=== PATIENT | female | born 1990 | race Caucasian/White ===

== ENCOUNTER 2017-10-08 16:43 | Emergency (ER) | payer SELFPAY ==
[2017-10-08 16:46] VITALS: BP 157/91; PULSE 98; RESP 20; TEMP 36.4; O2SAT 95; BMI 34.1
--- NOTE | 2017-10-08 17:53 | ED.DCSUM_ITS ---
- ER Visit Summary Date of Service: 10/08/17 Chief Complaint: Dental pain History of Present Illness: The patient is a 27 F who had her upper teeth extracted today at [facility]. Patient states there were at least 8 teeth that were pulled. Sutures were placed and then an upper denture plate was placed. Patient was advised not to remove the denture plate. She continues to have mild bleeding and states her pain is not controlled with the Motrin that she was given. Physical Examination: Vital signs are significant for mild hypertension. Patient is in no acute distress but does appear uncomfortable. Head neck examination reveals an upper denture plate to be in place. She has bloody mucus in her mouth. She is a strong voice and is tolerating secretions well. Uvula is midline. Heart is regular rate and rhythm. Lung sounds are clear. Test Results: [] Emergency Department Course and Treatment: I did do an oars report. She has had no recent narcotics. She will be given [place] here and a prescription for the same. Treatment Plan: [] Disposition: Discharge Impression: Odontalgia status post dental extraction This note was generated with [employer] dictation software. It may contain incorrect words, spelling, and punctuation that were not noted in review of the chart prior to signing ED Disposition - Plan for ED Patient: Disposition: Home or Assisted Living Chief Complaint: Dental Instructions: After a Tooth Extraction: Caring for Your Mouth Prescriptions: Hydrocodone Bitart/Apap 5-325 [[place] 5/325] 1 - 2 tablet PO Q6H PRN PRN 4 Days # 20 tablet PRN Reason: Pain Referrals: [facility] Ajith,Aurelia Sierra [Primary Care Provider] -
--- NOTE | 2017-10-08 17:53 | ED.DEP ---
ED Disposition - Plan for ED Patient: Disposition: Home or Assisted Living Chief Complaint: Dental Instructions: After a Tooth Extraction: Caring for Your Mouth Prescriptions: Hydrocodone Bitart/Apap 5-325 [[place] 5/325] 1 - 2 tablet PO Q6H PRN PRN 4 Days #20 tablet PRN Reason: Pain Referrals: [facility] Ajith,Aurelia Sierra [Primary Care Provider] -
--- NOTE | 2017-10-08 17:56 | DCINST.ED_ITS ---
ED Disposition - Plan for ED Patient: Disposition: Home or Assisted Living Chief Complaint: Dental Instructions: After a Tooth Extraction: Caring for Your Mouth Prescriptions: Hydrocodone Bitart/Apap 5-325 [[place] 5/325] 1 - 2 tablet PO Q6H PRN PRN 4 Days # 20 tablet PRN Reason: Pain Referrals: [facility] Ajith,Aurelia Sierra [Primary Care Provider] -
[2017-10-08] MEDS: HYDROcodone Bitartrate/Apap 5/325 Tablet PO (17:59)
[2017-10-08 18:43] VITALS: BP 132/71; PULSE 81; RESP 16; O2SAT 97
== END 2017-10-08 18:44 | disposition home or self-care (01) ==
LOC: ED 18:06
PROVIDERS: Emergency Provider Emergency Medicine
DX: K08.89 Other specified disorders of teeth and supporting structures (principal); Z98.818 Other dental procedure status; I10 Essential (primary) hypertension; F32.9 Major depressive disorder, single episode, unspecified; F41.9 Anxiety disorder, unspecified; Z72.0 Tobacco use; Z79.899 Other long term (current) drug therapy
CPT/HCPCS: 99283

== ENCOUNTER 2018-04-08 16:40 | Emergency (ER) | payer SELFPAY ==
[2018-04-08 16:40] VITALS: BP 146/110; PULSE 79; RESP 16; TEMP 36.6; O2SAT 98; BMI 31.6
--- NOTE | 2018-04-08 17:07 | ED.VISSUMM ---
- ER Visit Summary Date of Service: 04/08/18 Chief Complaint: [Back pain] History of Present Illness: The patient is a 27 F [presents the emergency department complaint of back pain that she has had for the last 3-4 days. States that she and her boyfriend like to play wrestle and she thinks she may have possibly injured it that way otherwise denies any direct trauma or falls. Patient states she just kind of woke up one morning with the discomfort. She has tried ibuprofen and using heat to the area without much relief. Patient states the pain is very positional and hurts with certain movements. She denies any pain radiating into her legs. At times the pain will radiate to the anterior part of her chest. She denies any shortness of breath. She denies recent travel or surgery. Patient denies any fevers or recent illness. Patient is a smoker so she always has a chronic cough in the morning but nothing out of the ordinary.] Physical Examination: [HEENT-PERRLA, EOMI. Cranial nerves II through XII grossly intact. TMs clear. Mucous membranes moist. No adenopathy. Cardiovascular-regular rate and rhythm without murmur or ectopy Lungs-clear to auscultation, chest wall stable without crepitus or subcu emphysema Abdomen-normoactive bowel sounds, soft, nontender, no rebound or rigidity, no peritoneal signs. Back exam-patient has no tenderness over the C-spine or LS-spine. Patient has no significant tenderness over the thoracic spine. Patient does have tenderness over the left thoracic paraspinal musculature that seems to reproduce her pain. Patient has negative straight leg raises. Deep tendon reflexes are plus 2 out of 4 bilaterally at the patella and Achilles. Patient has normal L5 extension. Patient has normal sensation to light touch. Extremities-intact ?4, normal range of motion, normal pulses, atraumatic] Test Results: None indicated] Emergency Department Course and Treatment: [Patient was medicated with Toradol and Norflex] Treatment Plan: [Patient will be given a prescription for Naprosyn, [place], and Flexeril] Disposition: [Discharged home in stable condition. Patient advised to follow-up with primary care physician in 5-7 days.] Impression: [Thoracic strain] This note was generated with [employer] software. It may contain incorrect words, spelling, and punctuation that were not noted in review of the chart prior to signing ED Disposition - Plan for ED Patient: Chief Complaint: Back Referrals: Aurelia Han [Primary Care Provider] -
--- NOTE | 2018-04-08 17:09 | ED.DEP ---
ED Disposition - Plan for ED Patient: Chief Complaint: Back Instructions: ED Sprain Thoracic Spine Prescriptions: Hydrocodone/Acetaminophen [[place] 5-325 Tablet] 1 ea PO 4X/DAY PRN PRN 5 Days #20 tab PRN Reason: Pain Naproxen [Naprosyn] 500 mg PO BID PRN #20 tab Cyclobenzaprine [Flexeril] 10 mg PO TID PRN #20 tab PRN Reason: Muscle Spasm Referrals: Aurelia Han [Primary Care Provider] - 5-7 Days
[2018-04-08] MEDS: Ketorolac 60 MG/2 ML Vial IM (17:13)
[2018-04-08] MEDS: Orphenadrine 60 MG/2 ML Ampul IM (17:13)
== END 2018-04-08 17:43 | disposition home or self-care (01) ==
PROVIDERS: Emergency Provider Emergency Medicine
DX: S29.012A Strain of muscle and tendon of back wall of thorax, initial encounter (principal); X58.XXXA Exposure to other specified factors, initial encounter; Y93.83 Activity, rough housing and horseplay; Y92.9 Unspecified place or not applicable; Y99.9 Unspecified external cause status; R05 Cough; F32.9 Major depressive disorder, single episode, unspecified; F17.200 Nicotine dependence, unspecified, uncomplicated; Z79.899 Other long term (current) drug therapy
CPT/HCPCS: 96372; 99282

== ENCOUNTER 2018-10-11 13:43 | Emergency (ER) | payer SELFPAY ==
[2018-10-11 13:44] VITALS: BP 125/94; PULSE 104; RESP 14; TEMP 36.7; O2SAT 97; BMI 31.8
--- NOTE | 2018-10-11 15:15 | CT_ITS ---
STUDY: CT ABDOMEN AND PELVIS WITHOUT CONTRAST REASON FOR EXAM: Female, 28 years old. Left flank pain RADIATION DOSAGE (If Supplied By Facility): CTDIvol = ( 10.45 ) mGy, DLP = ( 527.52 ) mGycm TECHNIQUE: Transaxial images were obtained from the dome of the diaphragm to the symphysis pubis without oral contrast, and without intravenous contrast. Sagittal and coronal images were reconstructed. Individualized dose optimization techniques were used for this CT. COMPARISON: None. FINDINGS: Evaluation of the abdominal viscera is limited in the absence of intravenous contrast. The visualized lung bases are clear. The visualized portions of the heart and pericardium are within normal limits. There are no calcified gallstones present. The liver demonstrates an unremarkable unenhanced appearance. The spleen is normal in size. The pancreas demonstrates an unremarkable unenhanced appearance. The adrenal glands are within normal limits. There is a 4 mm stone in the left proximal ureter with mild left hydronephrosis. There is a subcentimeter nonobstructing stone in the lower pole of the left kidney. There are no right-sided stones. There is no right-sided hydronephrosis. Normal visualized stomach. There is no bowel obstruction or inflammation. The appendix is visualized and appears normal. The aorta is normal in caliber. There is no abdominal or pelvic free air, free fluid, fluid collection or lymphadenopathy. There are no destructive osseous lesions. CT/Abdomen/Pelvis without Cont IMPRESSION: 4 mm stone in the left proximal ureter with mild left hydronephrosis. Electronically Signed: Rickey Blum, at 16:53 EST Tel , Service support ,
--- NOTE | 2018-10-11 15:16 | ED.VIS.GEN ---
History of Present Illness Chief Complaint: Back Informant: Patient Onset: Today Context: Sudden Onset - just after finished urinating this AM, about 6 hrs prior to eval Timing: Continuous Quality: non-colicky aching Location: left low back, radiating into left flank and groin Current Severity: - - 7/10 Maximum Severity: - - 7/10 Worsened by: moving around, but can't find comfortable position Relieved by: nothing Associated Symptoms: n/v. no urinary sx today. has never had this before. Narrative: No fevers or diarrhea. Incidentally patient states she has been having migraines more often than the past 6 months, especially for the past 5 days. Headache has been off and on and is associated with nausea/vomiting, but no photophobia. Nausea improves when the headaches resolve. Headaches are bifrontal. It is not present right now, but she is still nauseated. Has no PCP and has never seen a doctor outside of the ER for these headaches that she is calling migraines, because that is the only severe headache type I know of. Prior similar symptoms: No Recent Illness/Hospitalization: No - Past Medical History (1) Frequent headaches Status: Chronic Past Medical History - Allergies and Home Meds Allergies/Adverse Reactions: Allergies No Known Allergies Allergy (Verified 10/11/18 13:48) Primary Care Physician: Aurelia Han [Primary Care Provider] - Lives: Spouse/ Significant Other Smoking Status: Current every day smoker Review of Systems General: Reports: Malaise. Denies: Chills, Fever, Sweats Eyes: Reports: Visual changes - bilaterally - when gets headache. Denies: Diplopia ENT: Denies: Rhinorrhea, Sore throat Cardiovascular: Denies: Chest pain, Palpitations Respiratory: Denies: Dyspnea, Cough, Dyspnea on exertion Gastrointestinal: Reports: Abdominal pain, Nausea, Vomiting. Denies: Diarrhea, Melena, Hematochezia Genitourinary: Denies: Dysuria, Hematuria, Frequency Musculoskeletal: Denies: Extremity Pain Skin: Denies: Rash, Wounds Neurological: Denies: Headache, Weakness, Numbness Psych: Denies: Depression, Suicidal thoughts Physical Exam Vital Signs/Narrative: Vital Signs Temp Pulse Resp BP Pulse Ox 10/11/18 13:44 98.0 F 104 H 14 125/94 H 97 Inital Vital Signs reviewed: Yes General: Well nourished, Well developed, No Acute Distress Head: Normocephalic, Atraumatic Eyes: Perrl, EOMI ENT: Moist mucous membranes, No rhinorrhea Neck: Supple, Nontender Cardiovascular: Regular rate, Regular rhythm, No murmurs Respiratory: No distress, CTA bilaterally, Chest nontender Abdomen: Soft, Nontender, Nondistended, Normal bowel sounds Back: Nontender - to superficial palpation, Normal Inspection, CVA tenderness - left only. no rash. Extremities: Nontender, No edema Skin: Normal color, Rash - lacy nontender LLQ rash, erythemetous, blanching, no vesicles or bullae Neurological: Alert, Oriented x3, Cranial nerves II-XII grossly intact, Normal Strength, Normal Sensation Psychological: - - anxious Diagnostic/Tx/Re-eval Impressions Abdomen/Pelvis CT 10/11/18 15:15 IMPRESSION: 4 mm stone in the left proximal ureter with mild left hydronephrosis. Electronically Signed: Rickey Kulwant, at 16:53 EST Tel , Service support , 10/11/18 15:15 CT Abd [Abdomen/Pelvis without Cont] [CT] Stat Laboratory Results 10/11/18 10/11/18 10/11/18 15:03 15:03 15:45 WBC 18.5 H RBC 4.81 Hgb 15.1 H Hct 45.9 MCV 95.4 MCH 31.4 MCHC 32.9 RDW 12.5 RDW Differential 43.1 Plt Count 268 MPV 10.2 Immature Gran % (Auto) 0.400 Neut % (Auto) 78.7 H Lymph % (Auto) 11.9 L [place] % (Auto) 8.6 Eos % (Auto) 0.2 Baso % (Auto) 0.2 Absolute Neuts (auto) 14.6 H Absolute Lymphs (auto) 2.19 Total Counted Not Reportable Differential Comment Diff Path Review May foll Sodium 137 Potassium 3.3 L Chloride 104 Carbon Dioxide 27.0 Anion Gap 6 BUN 5 L Creatinine 0.99 Estim Creat Clear Calc 74.77 Est GFR (MDRD) Af Amer 85 Est GFR (MDRD) Non-Af 70 BUN/Creatinine Ratio 5.0 L Glucose 138 H Calcium 9.1 Urine Color Yellow Urine Clarity Turbid Urine pH 5.0 Ur Specific [place] 1.025 Urine Protein 100 H Urine Glucose (UA) Normal Urine Ketones 15 H Urine Occult Blood 250 H Urine Nitrite Positive H Urine Bilirubin 1 H Urine Urobilinogen 1 H Ur Leukocyte Esterase 100 H Urine RBC > 100 SEEN Urine WBC 25-50 SEEN Ur Squamous Epith Cells 10-25 SEEN Calcium Oxalate Crystal 1+ Urine Bacteria 3+ Urine Mucus 3+ Urine Test Negative - Medical Decision Making CT shows a 4 mm left proximal ureteral stone with hydronephrosis, this is likely causing her acute onset pain this morning. Her urinalysis shows infection, she has had no [id number] Azo or Pyridium-type medications. Therefore, will treat her as an infected stone until proven otherwise. After treatment with IV fluids, phenergan, morphine, Toradol, she is feeling 10 times better and much improved objectively on reevaluation. She is tolerating oral fluids. Her urine is cultured, she is given a gram of IV Rocephin, and will place her on Cipro along with medications for pain and nausea and advised to follow-up with urology if she does not pass the stone within the next 5 days, or to return to the ER for any intractable symptoms or worsening. She is comfortable with this plan. Given filters for home straining. ED Disposition - Plan for ED Patient: Disposition: Home or Assisted Living Diagnosis: Renal colic on left side, Ureterolithiasis, UTI (urinary tract infection) Instructions: ED Stone Renal W Colic, ED Strainer Urine Prescriptions: proMETHazine tablet [Phenergan tablet] 25 mg PO Q4H PRN PRN #20 tablet PRN Reason: Nausea Oxycodone HCl/Acetaminophen [Percocet 5/325] 1 tablet PO Q6H PRN PRN 4 Days #16 tablet PRN Reason: Pain Ciprofloxacin [Cipro] 500 mg PO BID #20 tablet Referrals: [facility] Ajith,Aurelia Sierra [Primary Care Provider] - Tong Liu MD [STAFF PHYSICIAN] - (if you do not pass the stone by 5-7 days) Additional Instructions: Return to the ER if you develop intractable pain or vomiting
[2018-10-11] MEDS: proMETHazine 25 MG/ML Syringe 12.5 MG IV (15:26)
[2018-10-11] MEDS: 0.9% Normal Saline 1,000 ML 999 ML IV (15:26)
[2018-10-11] MEDS: Ketorolac 30 MG/ML Syringe IV (15:26)
[2018-10-11] MEDS: Morphine 4 MG/ML Syringe IV (15:26)
[2018-10-11 15:37] LABS: Anion Gap 6 (5-15); BUN 5 mg/dL (7-18); Calcium,Total 9.1 mg/dL (8.5-10.1); Chloride 104 mmol/L (98-107); Creatinine, Serum 0.99 mg/dL (0.55-1.02); EST Glomerular Filtration Rate 70 mL/min (>60); Est Glom Filt Rate - Afr Amer 85 mL/min (>60); Estimated Creatinine Clearance 74.77 ml/min; Glucose 138 mg/dL (74-106); Potassium 3.3 mmol/L (3.5-5.1); Sodium Level 137 mmol/L (136-145)
[2018-10-11 15:46] LABS: Absolute Lymphocyte Count 2.19 X10^3/ul (0.83-4.51); Absolute Neutrophil Count 14.6 X10^3/uL (2.0-7.7); Basophil# 0.03 X10^3/uL; Basophil% 0.2 % (0-1); Differential Indicated SCAN CRITERIA MET; Eosinophil# 0.03 X10^3/uL; Eosinophils% 0.2 % (0-5); Hematocrit 45.9 % (37-47); Hemoglobin 15.1 g/dl (12.0-15.0); Lymphocyte # 2.19 X10^3/ul (4.0); Lymphocyte % 11.9 % (19-41); Mean Corp Hgb Conc 32.9 g/gl (32-36); Mean Corpuscular Hgb 31.4 pg (27.0-32.0); Mean Corpuscular Volume 95.4 fL (81-99); Mean Platelet Vol. 10.2 fl (6.2-12.0); Monocyte# 1.59 X10^3/uL; Monocyte% 8.6 % (0-10); Neutrophil # 14.57 X10^3/uL (2.7-7.7); Neutrophil % 78.7 % (47-70); POSITIVE COUNT NO; POSITIVE DIFFERENTIAL YES; POSITIVE MORPHOLOGY NO; Platelet Count 268 K/mm3 (150-450); RBC Distribution Width CV 12.5 % (11.6-14.6); RBC Distribution Width SD 43.1 fl (35.1-43.9); Red Blood Count 4.81 M/mm3 (4.2-5.4); White Blood Count 18.5 K/mm3 (4.4-11.0)
[2018-10-11 16:07] LABS: Color, Urine Yellow (Yellow); Glucose, Dipstick Normal (Normal); Ketone-Dipstick 15 mg/dl (Negative); Leukocyte Esterase-Dipstick 100 /ul (Negative); Nitrite-Dipstick Positive (Negative); Occult Blood-Urine 250 /ul (Negative); Protein-Dipstick 100 mg/dl (Negative); Specific Gravity, Urine 1.025 (1.002-1.030); Urine Clarity Turbid (Clear); Urine Urobilinogen 1 mg/dl (Normal)
[2018-10-11 16:09] LABS: Urine Bilirubin Dipstick 1 mg/dL (Negative)
[2018-10-11 16:16] LABS: Red Blood Cells-Urine > 100 SEEN /hpf (0-5); White Blood Cells 25-50 SEEN /hpf (0-5)
[2018-10-11 16:17] LABS: Bacteria 3+ /hpf (None Seen); Calcium Oxalate Crystals Ur 1+ /hpf (<or=2+)
[2018-10-11 16:19] LABS: Internal QC Validated? YES +Cl - CLEAR BKGD; Mucous, Urine 3+ /hpf (<or=2+); Pregnancy, Urine Negative Negative; Squamous Epithelial Cells - UA 10-25 SEEN /hpf (5-10)
[2018-10-11] MEDS: Ceftriaxone 1 GM/50 ML BAG IV (17:34)
[2018-10-11 18:00] VITALS: BP 124/86; PULSE 79; RESP 16; O2SAT 98
[2018-10-12 14:11] LABS: Pathologist Review Reviewed
== END 2018-10-11 18:43 | disposition home or self-care (01) ==
PROVIDERS: Emergency Provider Emergency Medicine
DX: N13.6 Pyonephrosis (principal); R11.0 Nausea; F17.200 Nicotine dependence, unspecified, uncomplicated; Z79.899 Other long term (current) drug therapy
CPT/HCPCS: 74176; 80048; 81001; 81025; 85025; 87086; 87088; 96361; 96365; 96375; 99281; J7030; J7050; A4216

== ENCOUNTER 2018-11-09 18:38 | Emergency (ER) | payer SELFPAY ==
[2018-11-09 18:39] VITALS: BP 130/77; PULSE 89; RESP 19; TEMP 36.7; O2SAT 96; BMI 32.6
--- NOTE | 2018-11-09 19:37 | RAD_ITS ---
HISTORY: left rib pain after fall COMPARISON: 04/03/16 chest radiographs. FINDINGS: XR Ribs Unilateral W/ PA Chest Min 3 Views: LINES/DEVICES: None. LUNGS: Radiographically clear. No consolidation, edema or effusion. No pneumothorax. MEDIASTINUM AND CARDIOVASCULAR STRUCTURES: Cardiac silhouette not enlarged. Central airways and mediastinal contour are unremarkable. RIBS AND OSSEOUS STRUCTURES: No visible fractures. Moderate right scoliosis lumbar spine again demonstrated. RAD/Ribs Uni Min 3V w/PA Chest IMPRESSION: Negative chest and ribs series. at 2132 Reported and signed by: Carlos uLx MD Electronically Signed: Carlos Lux, at 21:31 EDT Tel , Service support ,
--- NOTE | 2018-11-09 19:37 | CT_ITS ---
STUDY: CT ABDOMEN AND PELVIS WITH CONTRAST REASON FOR EXAM: Female, 28 years old. Left rib pain. Fall. RADIATION DOSAGE (If Supplied By Facility): CTDIvol = ( 19.59 ) mGy, DLP = ( 1189.23 ) mGycm TECHNIQUE: Transaxial images were obtained from the dome of the diaphragm to the symphysis pubis without oral contrast. Isovue 370 100ML IV was administered. Sagittal and coronal images were reconstructed. Individualized dose optimization techniques were used for this CT. COMPARISON: October 11, 2018 FINDINGS: The visualized lung bases are unremarkable. The visualized portions of the heart are within normal limits. Normal liver. Normal gallbladder and extrahepatic biliary system. Normal spleen. Normal pancreas. Normal bilateral adrenal glands. Normal right kidney. There is mild left-sided hydronephrosis that is less pronounced than the prior examination associated with a persistent 4.7 mm calculus within the proximal left ureter. There is an additional nonobstructing 5.9 mm calculus within the left kidney. Normal visualized stomach. Normal small intestine. Normal colon. The appendix is visualized and appears normal. Normal abdominal aorta. Normal inferior vena cava. Normal retroperitoneum. Normal urinary bladder. Normal abdominal wall. There is a mild dextroscoliosis of the thoracolumbar spine. CT/Abdomen/Pelvis W IV Cont ONLY IMPRESSION: Persistent 4.7 mm calculus within the left proximal ureter associated with left hydronephrosis that is less pronounced than the prior examination. Nonobstructing 5.9 mm calculus within the left kidney. Electronically Signed: Ana Jauregui MD at 21:25 EDT Tel , Service support ,
--- NOTE | 2018-11-09 19:39 | ED.VISSUMM ---
- ER Visit Summary Date of Service: 11/09/18 Chief Complaint: Fall History of Present Illness: The patient is a 28 F presenting after fall. Patient states she fell on Thursday. She stubbed her left great toe and then fell onto her left side. She did not hit her head or lose consciousness. She complains of left side pain and left great toe pain. She denies other complaints. Physical Examination: Vitals are stable. Patient is afebrile. Alert no acute distress. HEENT exam is unremarkable. Neck is supple. Lungs are clear and equal bilaterally. Left lower chest tenderness with no crepitus Heart is regular rate and rhythm. Abdomen is soft left upper quadrant tenderness with no rebound or guarding Extremities left great toe tenderness with nail partially avulsed, normal distal pulse Skin is warm and dry. No focal neurologic deficit. Remainder of exam is unremarkable. Emergency Department Course and Treatment: Patient was given morphine, Zofran IV. Patient began to have anxiety and was given Ativan with improvement. Urinalysis shows 0-5 white blood cells, 0-5 red blood cells, 5-10 epithelial cells. HCG negative. Left rib series shows no acute process. Left foot x-ray shows no acute process. CT abdomen pelvis shows persistent 4.7 mm calculus within the left proximal ureter associated with left hydronephrosis that is less pronounced than the prior examination 10/11/2018. Patient complains of intermittent left flank pain. Discussed with Dr. Liu. Patient will follow-up in the office. She is given an incentive spirometer. She is given prescription for short course of [place]. She is advised to follow-up with Aurelia Sierra as well. Advised return to ED if worsening complaints. Disposition: Discharge home Impression: Left rib contusion, persistent left proximal ureteral stone This note was generated with [employer] dictation software. It may contain incorrect words, spelling, and punctuation that were not noted in review of the chart prior to signing ED Disposition - Plan for ED Patient: Instructions: ED Contusion Rib, ED Stone Renal W Colic Prescriptions: Hydrocodone Bitart/Apap 5-325 [[place] 5MG-325MG] 1 tablet PO Q6H PRN PRN 3 Days #10 tablet PRN Reason: Pain Referrals: Tong Liu MD [STAFF PHYSICIAN] - [facility],Aurelia Sierra [NON-STAFF] -
[2018-11-09] MEDS: Ondansetron 4 MG/2 ML Vial IV (20:29)
[2018-11-09] MEDS: Morphine 4 MG/ML Syringe IV ×2 (20:29→23:06)
--- NOTE | 2018-11-09 20:35 | RAD_ITS ---
HISTORY: left foot pain after fall COMPARISON: None FINDINGS: XR Foot Min 3 Views: Left. SOFT TISSUES: No acute findings. No radiopaque foreign body. BONES/JOINTS: No acute fracture or subluxation. Normal alignment. Preservation of the joint space. No sclerotic or destructive changes observed. RAD/Foot min 3 Views IMPRESSION: Negative. at 2130 Reported and signed by: Carlos Lux MD Electronically Signed: Carlos Lux, at 21:29 EDT Tel , Service support ,
[2018-11-09 23:12] VITALS: BP 129/86; PULSE 72; RESP 18; O2SAT 96
[2018-11-09 23:29] LABS: Mucous, Urine 0 SEEN /hpf (<or=2+)
[2018-11-09 23:37] LABS: Internal QC Validated? YES +Cl - CLEAR BKGD; Pregnancy, Urine Negative Negative
[2018-11-09 23:42] LABS: Color, Urine Yellow (Yellow); Glucose, Dipstick Normal (Normal); Ketone-Dipstick Negative (Negative); Leukocyte Esterase-Dipstick 25 /ul (Negative); Nitrite-Dipstick Negative (Negative); Occult Blood-Urine 50 /ul (Negative); Protein-Dipstick 15 mg/dl (Negative); Urine Bilirubin Dipstick Negative (Negative); Urine Clarity Sl. Cloudy (Clear); Urine Urobilinogen 1 mg/dl (Normal); Urine pH 6.5 (5.0 - 8.0)
[2018-11-09] MEDS: LORazepam 1 MG Tablet PO (23:42)
[2018-11-09 23:49] LABS: Bacteria RARE /hpf (None Seen); Red Blood Cells-Urine 0-5 SEEN /hpf (0-5); Squamous Epithelial Cells - UA 5-10 SEEN /hpf (5-10); White Blood Cells 0-5 SEEN /hpf (0-5)
[2018-11-10 00:33] VITALS: BP 134/78; PULSE 81; RESP 17; O2SAT 97
== END 2018-11-10 00:34 | disposition home or self-care (01) ==
LOC: ED 20:16
PROVIDERS: Emergency Provider Emergency Medicine; Family Provider Nurse Practitioner Family; PCP Nurse Practitioner Family
DX: S20.212A Contusion of left front wall of thorax, initial encounter (principal); M79.675 Pain in left toe(s); W19.XXXA Unspecified fall, initial encounter; Y93.9 Activity, unspecified; Y92.9 Unspecified place or not applicable; Y99.9 Unspecified external cause status; N13.2 Hydronephrosis with renal and ureteral calculous obstruction; F41.9 Anxiety disorder, unspecified; Z72.0 Tobacco use; Z87.442 Personal history of urinary calculi
CPT/HCPCS: 71101; 73630; 74177; 81001; 81025; 96374; 96375; 96376; 99284; Q9967; A4216; J2405

== ENCOUNTER 2018-11-13 03:43 | Emergency (ER) | payer SELFPAY ==
[2018-11-13 03:43] VITALS: BP 121/81; PULSE 100; RESP 18; TEMP 37.4; O2SAT 97; BMI 33.9
--- NOTE | 2018-11-13 03:55 | RAD_ITS ---
HISTORY: chest wall pain, left side EXAM: XR Chest 2 Views: COMPARISON: Chest and rib series 11/09/18. FINDINGS: LINES/DEVICES: None. LUNGS: Radiographically clear. No consolidation, edema or effusion. No pneumothorax. MEDIASTINUM AND CARDIOVASCULAR STRUCTURES: Cardiac silhouette not enlarged. Central airways and mediastinal contour are unremarkable. BONES AND SOFT TISSUES: No acute findings. Right scoliosis lumbar spine. RAD/Chest PA and Lateral IMPRESSION: No radiographic evidence of acute cardiopulmonary disease. at 3243 Reported and signed by: Carlos Lux MD Electronically Signed: Carlos Lux, at 4:24 EDT Tel , Service support ,
[2018-11-13] MEDS: Ondansetron 4 MG/2 ML Vial IM (04:04)
[2018-11-13] MEDS: Morphine 4 MG/ML Syringe IM (04:04)
--- NOTE | 2018-11-13 04:37 | ED.DCSUM_ITS ---
- ER Visit Summary Date of Service: 11/13/18 Chief Complaint: [Side pain] History of Present Illness: The patient is a 28 F [presents the emergency department complaint left side pain she has had for about a week. Patient states that she fell about a week ago when she stubbed her toe and injured her left side. Patient was seen in the emergency department about 3 days ago and had a workup including x-rays of her ribs and a CT scan of the abdomen pelvis with IV contrast which showed a 4.7 mm left ureteral proximal stone with mild hydronephrosis which is improved from prior study. Patient also had a larger stone within the left kidney itself. No rib fractures were noted. Patient was given a prescription for [place]. Patient continues to complain of pain and tonight was sitting [place] style when she felt a pop in her left side and has had increased pain since that time. Patient states the pain is worse with certain movements and deep breath. She denies any cough or hemoptysis. She denies any fever. She denies any abdominal pain.] Physical Examination: [HEENT-PERRLA, EOMI. Cranial nerves II through XII grossly intact. TMs clear. Mucous membranes moist. No adenopathy. Cardiovascular-regular rate and rhythm without murmur or ectopy Lungs-clear to auscultation, chest wall stable without crepitus or subcu emphysema. Chest wall-patient has tenderness over the left chest wall in the mid axillary line that reproduces her pain. No crepitus or subcu emphysema noted. Abdomen-normoactive bowel sounds, soft, nontender, no rebound or rigidity, no peritoneal signs. Extremities-intact ?4, normal range of motion, normal pulses, atraumatic] Test Results: [Chest x-ray PA and lateral obtained was negative for acute disease process and no obvious rib fractures or pneumothorax] Emergency Department Course and Treatment: [Patient was given a dose of morphine and Zofran.] Treatment Plan: [Patient will be given a prescription for a few Percocet for pain. Patient to follow-up with primary care physician inventory control associate for no doc within the next 3-5 days.] Disposition: [Discharged home in stable condition.] Impression: [Left chest wall strain] This note was generated with [employer] dictation software. It may contain incorrect words, spelling, and punctuation that were not noted in review of the chart prior to signing ED Disposition - Plan for ED Patient: Referrals: Care Physician,No Primary [Primary Care Provider] -
--- NOTE | 2018-11-13 04:37 | ED.DEP ---
ED Disposition - Plan for ED Patient: Instructions: ED Strain Chest Wall Prescriptions: Oxycodone HCl/Acetaminophen [Percocet 5/325] 1 tab PO Q6H PRN PRN 3 Days #12 tab PRN Reason: Pain Referrals: Care Physician,No Primary [Primary Care Provider] - Vivien Jeffries MD [STAFF PHYSICIAN] - 3-5 Days
--- NOTE | 2018-11-13 04:40 | ED.DEP ---
ED Disposition - Plan for ED Patient: Instructions: ED Strain Chest Wall Prescriptions: Oxycodone HCl/Acetaminophen [Percocet 5/325] 1 tab PO Q6H PRN PRN 3 Days #12 tab PRN Reason: Pain proMETHazine tablet [Phenergan] 25 mg PO Q6H PRN PRN #10 tab PRN Reason: Nausea Referrals: Vivien Jeffries MD [STAFF PHYSICIAN] - 3-5 Days Care Physician,No Primary [Primary Care Provider] -
[2018-11-13 04:42] VITALS: BP 119/76; PULSE 83; RESP 18; O2SAT 96
== END 2018-11-13 04:44 | disposition home or self-care (01) ==
PROVIDERS: Emergency Provider Emergency Medicine
DX: S29.012A Strain of muscle and tendon of back wall of thorax, initial encounter (principal); W19.XXXA Unspecified fall, initial encounter; Y93.9 Activity, unspecified; Y92.9 Unspecified place or not applicable; Y99.9 Unspecified external cause status; N13.2 Hydronephrosis with renal and ureteral calculous obstruction; Z72.0 Tobacco use; Z79.899 Other long term (current) drug therapy; Z87.442 Personal history of urinary calculi
CPT/HCPCS: 71046; 96372; 99282; J2405

== ENCOUNTER 2018-11-21 17:04 | Emergency (ER) | payer SELFPAY ==
[2018-11-21 17:06] VITALS: BP 115/77; PULSE 87; RESP 14; TEMP 36.8; O2SAT 96; BMI 33.0
--- NOTE | 2018-11-21 17:27 | ED.DCSUM_ITS ---
- ER Visit Summary Date of Service: 11/21/18 Chief Complaint: Left rib pain History of Present Illness: The patient is a 28 F who was seen in the ER on November 09 and after a fall with left rib injury. She had a CT of her chest performed on the first visit that showed no fracture. Chest x-ray on the was unremarkable. Patient was given a prescription for [place] on the first visit and Percocet on the second visit. Patient states she is now taking Tylenol every 6 hours without improvement. She has significant pain to the left ribs and thinks she has a slipped rib. Physical Examination: Vital signs unremarkable. Head neck examination normal. Heart is regular rate and rhythm. Lung sounds are clear. She has reproducible tenderness in the left lateral chest wall. No crepitus noted. No ecchymosis or erythema. Abdomen is soft with tenderness in the left upper quadrant. Test Results: [] Emergency Department Course and Treatment: I did review her prior workup and imaging studies. I do not believe repeat imaging is needed at this time. She is requesting manipulation to replace her rib. I advised her to follow-up with Dr. Dawson, chiropractics at [facility]. She will be given a short course of Percocet, Naprosyn, and Flexeril at this time. Treatment Plan: [] Disposition: Discharge Impression: Left rib contusion This note was generated with [employer] dictation software. It may contain incorrect words, spelling, and punctuation that were not noted in review of the chart prior to signing ED Disposition - Plan for ED Patient: Referrals: Care Physician,No Primary [Primary Care Provider] -
--- NOTE | 2018-11-21 17:27 | ED.DEP ---
ED Disposition - Plan for ED Patient: Disposition: Home or Assisted Living Instructions: ED Contusion Rib Prescriptions: Oxycodone HCl/Acetaminophen [Percocet 5/325] 1 tablet PO Q6H PRN PRN 3 Days #10 tablet PRN Reason: Pain Naproxen [Naprosyn] 500 mg PO BID PRN PRN #20 tablet PRN Reason: Pain Cyclobenzaprine [Flexeril] 10 mg PO TID PRN #20 tablet PRN Reason: Muscle Spasm Referrals: Michaela Dawson DC [ALLIED HEALTH PROFESSIONAL] - As soon as possible
[2018-11-21] MEDS: Naproxen 500 MG Tablet PO (17:39)
[2018-11-21] MEDS: oxyCODONE 5 MG Tablet PO (17:39)
[2018-11-21] MEDS: Ondansetron ODT 4 MG Tablet PO (17:44)
[2018-11-21 17:57] VITALS: RESP 18
== END 2018-11-21 17:57 | disposition home or self-care (01) ==
LOC: ED 17:53
PROVIDERS: Emergency Provider Emergency Medicine
DX: S20.212A Contusion of left front wall of thorax, initial encounter (principal); W19.XXXA Unspecified fall, initial encounter; Y93.9 Activity, unspecified; Y92.9 Unspecified place or not applicable; Y99.9 Unspecified external cause status; Z72.0 Tobacco use; Z79.899 Other long term (current) drug therapy; Z87.442 Personal history of urinary calculi
CPT/HCPCS: 99283

== ENCOUNTER 2019-02-08 14:30 | Emergency (ER) | payer SELFPAY ==
[2019-02-08] VITALS (9 sets, daily range): BP systolic 110–136; BP diastolic 67–82; PULSE 62–84; RESP 16–99; TEMP 36.7; O2SAT 98–99; BMI 31.8
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
--- NOTE | 2019-02-08 16:05 | ED.RN ---
LATE ENTRY AT 1530 PT REQUESTED TO TAKE NEW RX CLONAZEPAM 1MG PO, DR. LOPES SAID IT WAS OKAY TO GIVE PT THE MEDICATION, THIS NURSE GAVE CLONAZEPAM 1MG PO TO PT AND THEN PLACED REMAINING BOTTLE OF MEDS WITH PT'S CLOTHING IN TOTE.
[2019-02-08 16:25] LABS: Anion Gap 9 (5-15); BUN 7 mg/dL (7-18); BUN/Creat Ratio 8.3 RATIO (10-20); Calcium,Total 9.3 mg/dL (8.5-10.1); Chloride 105 mmol/L (98-107); Creatinine, Serum 0.84 mg/dL (0.55-1.02); EST Glomerular Filtration Rate 84 mL/min (>60); Est Glom Filt Rate - Afr Amer 102 mL/min (>60); Estimated Creatinine Clearance 88.12 ml/min; Glucose 145 mg/dL (74-106); Potassium 3.8 mmol/L (3.5-5.1); Sodium Level 139 mmol/L (136-145)
[2019-02-08 16:27] LABS: Internal QC Validated? YES +Cl - CLEAR BKGD; Pregnancy, Serum, hCG Quali. NEGATIVE Negative
[2019-02-08 16:37] LABS: Absolute Lymphocyte Count 2.24 X10^3/ul (0.83-4.51); Absolute Neutrophil Count 6.6 X10^3/uL (2.0-7.7); Basophil# 0.02 X10^3/uL; Basophil% 0.2 % (0-1); Eosinophil# 0.06 X10^3/uL; Eosinophils% 0.6 % (0-5); Hematocrit 45.4 % (37-47); Hemoglobin 15.3 g/dl (12.0-15.0); Lymphocyte # 2.24 X10^3/ul (4.0); Lymphocyte % 23.2 % (19-41); Mean Corp Hgb Conc 33.7 g/gl (32-36); Mean Corpuscular Hgb 31.6 pg (27.0-32.0); Mean Corpuscular Volume 93.8 fL (81-99); Mean Platelet Vol. 10.5 fl (6.2-12.0); Monocyte# 0.72 X10^3/uL; Monocyte% 7.5 % (0-10); Neutrophil # 6.59 X10^3/uL (2.7-7.7); Neutrophil % 68.2 % (47-70); POSITIVE COUNT NO; POSITIVE DIFFERENTIAL NO; POSITIVE MORPHOLOGY NO; Platelet Count 283 K/mm3 (150-450); RBC Distribution Width CV 12.5 % (11.6-14.6); RBC Distribution Width SD 42.5 fl (35.1-43.9); Red Blood Count 4.84 M/mm3 (4.2-5.4); White Blood Count 9.7 K/mm3 (4.4-11.0)
[2019-02-08 17:08] LABS: Alcohol, Blood (Medical)-Serum < 3.0 mg/dL
--- NOTE | 2019-02-08 17:26 | CM.ED ---
Social Work Patient was sent to the Emergency Department by Crisis. Crisis following. Sonido CHEN, LIDIA
--- NOTE | 2019-02-08 17:59 | NURSING ---
CALLED CRISIS AND LET THEM KNOW EVERYTHING IS BACK.
[2019-02-08 18:59] LABS: Amphetamine Urine VISTA NEGATIVE (<1000 ng/mL); Barbiturate Urine VISTA NEGATIVE (< 200 ng/mL); Benzodiazepine Urine VISTA NEGATIVE (< 200 ng/mL); Cocaine Urine VISTA NEGATIVE (< 300 ng/mL); Ecstacy Urine VISTA NEGATIVE (< 500 ng/mL); Methadone Urine VISTA NEGATIVE (< 300 ng/mL); PCP Urine VISTA NEGATIVE (< 25 ng/mL); THC Urine VISTA POSITIVE (< 50 ng/mL); Vista UDS pH Range 6
[2019-02-08] MEDS: proMETHazine 25 MG Tablet PO (19:44)
[2019-02-08] MEDS: LORazepam 1 MG Tablet PO (22:47)
== END 2019-02-08 22:58 ==
PROVIDERS: Emergency Provider Emergency Medicine
DX: R45.851 Suicidal ideations (principal); F17.200 Nicotine dependence, unspecified, uncomplicated; F43.10 Post-traumatic stress disorder, unspecified; F84.0 Autistic disorder; F60.3 Borderline personality disorder; F41.9 Anxiety disorder, unspecified; F32.9 Major depressive disorder, single episode, unspecified; Z79.899 Other long term (current) drug therapy
CPT/HCPCS: 36415; 80048; 80307; 80320; 84703; 85025; 99285; G0480

== ENCOUNTER 2019-02-21 09:00 | Outpatient (RCR) | payer MEDICARE, SELFPAY ==
[2019-02-08 14:30] VITALS: BMI 31.8
--- NOTE | 2019-02-21 09:10 | BH.SGPN.GN ---
Behaviors/Verbalizations/Mental Status: [] Eye contact is intense. Motor activity is appropriate. Appearance is disheveled. Speech is Appropriate. Mood is anxious. Affect is congruent. restless. Thoughts are linear and logical. No evidence of psychosis. Reviewed daily check sheet with no reports of suicidal ideations or intent. Client Response/Progress/Benefit: [] Pt participated in group discussion at times. Shared with the group that she was admitted to inpatient psychiatric unit last week. Shared that her anxiety and depression have been overwhelming which led to admission. Reports improvement in depression, however continues to have significant anxiety, restlessness, and erratic moods. Restless during group with some difficulty sitting still. Reports that she often just wants to run. States I just want to get better. Focused on medication and medication side effects however did state I want to learn new skills. Group was supportive which she benefited from. Will continue in IOP to maintain safety, stabilize mood, decrease anxiety, and prevent decompensation. Narrative Note: []
--- NOTE | 2019-02-23 09:02 | BH.SGPN.GN ---
Behaviors/Verbalizations/Mental Status: []Pt eye contact good, casually dressed, motor activity appropriate, speech normal rate and tone, mood euthymic, congruent affect, thoughts linear and intact, no evidence of delusions or hallucinations. Pt completed symptom tracker denying suicidal thoughts or intention to date. Client Response/Progress/Benefit: [] Clean listened intently to others, connecting with others comments, and openly share thoughts and feelings. Client identified a mental health positive to be planting woods in her garden which client stated makes her feel more peaceful when she goes on her porch. Client identified she is struggling with her relationship with her mom because client states her mom tends to be overbearing and tell client what to do. Client reported she is frustrated because she was getting along with her mom but yesterday the relationship started to be a stressor versus support. Client reported another stressor is having to pay her bills today however client shared she knows she can get through this. Client identified feeling anxious and keyed up. No progress noted as evidenced by client's moods being significantly impacted by others. Client to continue IOP level of care to maintain safety, improve emotional regulation, and prevent decompensation. Narrative Note: []
--- NOTE | 2019-02-23 10:14 | BH.SGPN.GN ---
Behaviors/Verbalizations/Mental Status: [Client alert and oriented, casually dressed. Eye contact good. Motor activity restless, often pacing or moving around the room. Speech loud and rambling, often interrupting others. Affect labile, mood anxious. Thoughts appearing distracted at times AEB off topic remarks no signs of hallucinations or delusions.] Client Response/Progress/Benefit: [Pt receptive of session, actively providing input to discussion on fear of failure. Pt at times struggled with interrupting others and dominating discussion which impacted fellow participant participation. She additionally made off topic remarks at times but did well to bring it back to topic of discussion when redirected. Pt at times had difficulties with focusing primarily on external factors impacting fear of failure, such as upbringing. When challenged she appeared willing to identify internal factors as well and indicated that self-comparison has been a factor contributing to her ability to manage setbacks and keep from becoming stuck by them. Pt appeared to benefit from being challenged in group activity to practice becoming comfortable with potential failure by using in the moment coping when presented with setbacks. Displayed some difficulties in not allowing outside distraction to impact her ability to focus on her goals and at times appeared to experience difficulties in challenging negative thoughts regarding belief that she might fail or becoming frustrated with how long the activity was taking. Progress noted in pt ability to continue trying without giving into urges to give up. Recommended continued IOP tx to prevent decompensation, increase distress tolerance skills, and improve mental health sx management.] Narrative Note: []
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
--- NOTE | 2019-02-23 13:42 | BH.DR.ITP ---
Initial Treatment Plan - Patient Information Visit Information: ADMISSION DATE: February 21, 2019 EXPECTED LOS: 4-6 weeks Diagnoses:: Borderline personality disorder - Problems/Symptoms Problem #1:: Borderline personality Symptom:: Feeling overwhelmed, emotional lability, restless Problem #2:: Mood swings Symptom:: Depression which is accompanied by agitation and anger
--- NOTE | 2019-02-25 09:10 | BH.SGPN.GN ---
Behaviors/Verbalizations/Mental Status: [] Eye contact is good. Motor activity is appropriate. Appearance is casual. Speech is Appropriate. Mood is anxious. Affect is congruent. Restless. Thoughts are linear and logical. No evidence of psychosis. Reviewed daily check sheet with no reports of suicidal ideations or intent. Client Response/Progress/Benefit: [] Pt was an active participant in group discussions. Emotion for today is anxious. Shared that she had a very stressful and anxiety provoking event with her family. Stated while at the family event she felt nobody wanted me there. She ruminated on this thought, started to avoid and isolate, and then started to get angry at others. She soon left the libertarian. Appears she was able to challenge these cognitive distortions as she later returned. Unclear on her motivation as she stated I don't want them to know that I was upset. Displays cogntivie distortions and blames others for her mood and stress. Limited insight into her role in her anxiety, depressive, relationship conflicts, and anger. Group praised her for returning and not avoiding. Pt sees this as progress. Benefited from group discussion, feedback, and support. Benefited from hearing other members progress in the program. Will continue in IOP to prevent decompensation, stabilize anxiety, and improve daily functioning Narrative Note: []
--- NOTE | 2019-02-25 09:50 | BH.NA ---
Physical Data - Vital Signs Pulse Rate: 84 Respiratory Rate: 16 Blood Pressure: 112/76 - Height/Weight Height: 1.65 m Weight:: 88.451 kg Weight in Pounds: 195.0 lbs Current Medication Compliance - Medication Compliance Do you take your medication as prescribed?: Yes Do you need assistance with taking medication?: Yes Have you had side effects from medication?: No Nutritional History - Appetite Nutritional Instructions:: If client shows signs of a swallowing problem, weight change of 10 pounds or more in the last month, or is on a diabetic diet, the physician will review and request a dietitian consult, as appropriate. All unintentional weight loss will be referred to the physician for decision on need for dietitian consult. Describe your appetite:: Good Have you noticed a change in your eating habits lately?: Yes - recent nighttime binge eating Functional Assessment - Sleep Pattern Describe any problems with sleeping: Client describes difficulty falling asleep most nights and some restlessness. - Activities Motor Activity:: Functional Sensory/Communication Assess - Hearing Problems Do you have any hearing problems?: Adequate - Communication Problems Do you have difficulty understanding what people are saying?: No Do you have trouble putting your thoughts into words or expressing what you want to say?: No Do people ever have trouble understanding what you say?: No What is your primary language?: Kyrgyz Learning Assessment - Learning Barriers Learning Barriers:: Ready to learn Medical Problems/History - Pain Assessment Do you have acute or chronic pain?: No - Female Reproductive Do you think you may be ?: No Number of pregnancies:: 1 Number of children:: 0 Have you reached menopause?: No :: 1 - SAB Surgical History - Surgical History Have you had any surgeries? If so, list type and date:: No Substance Abuse - Substance Abuse Please describe substance abuse in the last 30 days:: Smokes 1ppd cigarettes, daily marijuana use. Rarely, single glass of wine. Mental Status Summary - Mental Status Significant Findings/Observations on Appearance and Mood:: Susan is A&Ox4, cooperative with interview. Normal activity while seated. Steady gait. Appropriate grooming and hygiene, casual attire. Speech is clear and of regular rate and volume. Mild-moderate depression and anhedonia. Mood congruent affect. Logical associations and normal process. No symptoms of delusions. Denies hallucinations, HI, and SI. Good attention and concentration. Suicide Assessment - Suicidal Ideation Are you currently or have you been suicidal in the past?: Yes Suicidal Intentional Rating Scale (SIRS): Suicidal thoughts (past) Physician Notification: If Active suicidal thoughts/Will not contract for safety is checked, contact physician and document in the Physician Notification section below. Assault History/Potential - History of Assault Do you have a history of assaulting someone?: No Physician Notification: If yes, notify physician and document notification date and time below. Past Psychiatric History - MH Treatment Hx Past Psychiatric Medications:: buspar, lithium, depakote ECT Therapy Details:: N/A Current providers for mental health treatment (counselor, psychiatrist, behavioral health case manager, etc.): [facility] Risk Assessment - Age Age: Less than 60 - Mental Status Mental Status: Willing & able to ask for assistance when needed - Physical Status Physical Status: No problems - Impairments Impairments: None - Elimination Elimination: Continent AND independent - Gait or Balance Gait or Balance: Walks independently - Hx of Falls History of falls in the past 6 months: No known history - Medications/Substances Psychotropics:: Antidepressants, Antipsychotics, Anxiolytics (e.g. benzodiazepines), Sedatives Medications/substances used within the past 24 hours or ordered to administer: 3 or more of the medications/substances listed above - Total Score Total Points:: 2 Physician Notification - Physician Notification Physician Notified: Kathryn Giordano Method of Notification: Face to Face Comments: treatment planning discussion RN Summary of Impressions - Impressions Recommendations: Include psychiatric and medical issues, treatment planning recommendations, and discharge planning needs. Impressions: Psychiatric Issues: bipolar NOS, borderline personality disorder (cluster B traits) Impression: Medical Issues: N/A Impression: General Medical Conditions: N/A - Level of Care How do the client's current symptoms and functional deficits support need for this level of care?: Susan describes a significant decompensation in her mental health for several months; contributing factors include family medical issues, family conflict, and some outstanding legal issues. She notes drastic mood swings and agitation. She has limited support. IOP will provide social support and training to promote gains and prevent further decompensation.
--- NOTE | 2019-02-25 10:14 | BH.SGPN.GN ---
Behaviors/Verbalizations/Mental Status: []Client alert and oriented, disheveled appearance. Eye contact good. Motor activity restless-frequently getting up from seat. Speech within normal limits-monopolizing discussion at times. Affect congruent, mood anxious. Thoughts linear, logical, no signs of hallucinations or delusions. Client Response/Progress/Benefit: []Client was an active participant in group activity and discussion. Client worked with the group to define anger and its causes. Client provided insight to the discussion of anger as a secondary emotion. Client reported that when she feels invalidated she tends to act in anger. Client shared ?bottled anger leads to misplaced anger.? Reported connecting with the group discussion on how anger can have unintended consequences towards self and others. Client shared some negative consequences of unmanaged anger are loss of relationships, loss of job, isolation, hopelessness, and negative perspective. Client participated in the group activity and reported feeling irritated during the activity, but with the help of her partner, client was able to cope through it. Benefited from group by increasing awareness of anger as well as the consequences of unmanaged anger. Client?s first week of IOP, so no progress to document. Client to continue IOP to prevent decompensation, improve functioning, and increase mood stability.
[2019-02-25 11:15] VITALS: BP 112/76; PULSE 84; RESP 16
--- NOTE | 2019-02-25 11:15 | BH.SGPN.GN ---
Behaviors/Verbalizations/Mental Status: [Client alert and oriented, casually dressed. Eye contact fair to good - often times looking around room. Motor activity appearing restless AEB moving around room and fidgeting with various items . Speech tangentile. Affect labile. mood agitated, anxious. Thoughts easily distracted, at times not fitting topic of discussion, no signs of hallucinations or delusions.] Client Response/Progress/Benefit: [Pt receptive to session, providing input during discussion though struggled at times with maintaining focus and often provided off topic responses or interrupted fellow participants. Pt connected with the topic of Anger Management and provided several examples relates to her own experiences with not managing anger responses in healthy ways. Reports invalidation most increases her likelihood to become angry and shared current responses to anger tend to involve: yelling or crying. Struggled to complete worksheet identifying internal and external consequences of unhealthy anger responses, though completed with assistance from dry wall sprayer. Pt identified internal impact on mental health of current response as: the problem getting worse and she is likely to increase isolating behavior. Appeared to benefit from working with group on identifying how to cope with anger in healthier ways and creating her own plan for implementing healthy anger management strategies in daily life. Pt walking away and listening to music as strategies to use during times she is angry. Progress limited due to pt difficulties in internalizing skills and often struggling to remain on topic throughout group discussion. Recommended continued IOP tx to prevent decompensation, continue to improve emotion regulation skills, and reduce anxiety.] Narrative Note: []
--- NOTE | 2019-03-01 09:08 | BH.SGPN.GN ---
Behaviors/Verbalizations/Mental Status: []Client alert and oriented, disheveled appearance. Eye contact good. Motor activity appropriate. Speech within normal limits. Affect constricted, mood irritable. Thoughts linear, logical, no signs of hallucinations or delusions. Reviewed client?s symptom tracker, no risk for suicidal ideation, plan, or intent as of 03/01/19. Client Response/Progress/Benefit: []Client responded well to session, engaged in discussion. Client reports feeling ?anxious, but getting back to hopeful? today. Client shared that she has been highly anxious, restless, and agitated lately. Client reports belief this is due to a recent medication change. Client shared she is proud of herself for ?making myself do therapy.? Client reported a positive today is that she is able to sit still during group and she has not run out because of being too agitated. Client?s second positive is that she was able to spend time with her grandma this week. Client reported she continues to struggle with emotional dysregulation and that she will lash out at times. Client appeared to benefit from verbalizing her emotions in a non-judgmental setting. Progress limited as client continues to struggle with mood dysregulation. Client will continue IOP tx to prevent decompensation and improve daily functioning.
--- NOTE | 2019-03-01 15:22 | BH.MDN ---
Multi-Disciplinary Note - Note 30-min Individual Time Started:: 11:30 Date: 03/01/19 Purpose of session/treatment goals addressed:: Purpose of session was to assess pt's current symptoms and stressors. Session focused on identifying treatment goals while in IOP. Eye Contact:: Fair Motor Activity:: Restless Appearance:: Casual Speech:: Appropriate Mood:: Anxious Affect:: Labile Thoughts:: Circular, No evidence of hallucinations/delusions noted Staff Interventions:: Therapist used open ended questions to elicit pt's current symptoms and stressors. Therapist collaborated with pt to identify treatment goals for IOP. Provided support by using active listening and validating emotions. Client Response:: Pt reported current stressor is having side effects of her Abilify with increased restlessness. Pt stated she stopped taking her Abilify on Thursday. Pt reported she was also experiencing mood swings. Pt stated she is frustrated she can't find a medication without side effects that can help her mood stability. Pt reported while she is IOP she wants to focus on being able to manage stressors in her life. pt stated she can become easily overshwlemed when life hits me which results in her making impulsive or irrational choices and ultimately shutting down. Additional goals pt stated she'd like to work on include increasing self-compasion, regulating emotions more effectively, and decreasing negative thoughts. Risks/Concerns:: Pt reports passive thoughts of most days, but denies suicidal plan or intention to date. Pt future focused. Agreeable to call 911 or go to nearest emergency room if feels unable to maintain safety. Progress Toward Goals/Plan:: No progress observed due to this being pt's first week in IOP. Session focused on establishing treatment goals for IOP. Pt to continue IOP to increase emotional regulation, improve healthy coping and prevent decompensation. Time Stopped:: 12:00
--- NOTE | 2019-03-03 09:00 | BH.SGPN.GN ---
Behaviors/Verbalizations/Mental Status: []Client alert and oriented, casually dressed and groomed. Eye contact good. Motor activity appropriate. Speech within normal limits. Affect flat, mood irritable, anxious. Thoughts linear, logical, no signs of hallucinations or delusions. Reviewed client?s symptom tracker. Reports 1/5 for thoughts of suicide and 0/5 for risk, plan, or intent as of 03/03/19. Client Response/Progress/Benefit: []Client responded well to session, participating when prompted. Client reports feeling ?anxious? today. Client reported she did not sleep well last night and that she is struggling with functioning in ?adulthood.? Client able to identify mental health wins which included mowing her grandmother?s yard yesterday and fighting less with her boyfriend. Client reported physical regulation helps client manage her intense moods and client acknowledged she could benefit from this today. Client reported she wants to continue improving her coping skills. Appeared to benefit from reflecting on progress and discussion of ways she can cope with anxiety today. Progress noted in client?s report of less lashing out, however, client continues to report intense mood swings and can continue to benefit from IOP.?
--- NOTE | 2019-03-03 10:04 | BH.SGPN.GN ---
Behaviors/Verbalizations/Mental Status: [Client alert and oriented, casually dressed, disheveled, fairly groomed. Eye contact fair to good. Motor activity appropriate. Speech within normal limits. Affect congruent, mood dysthymic, anxious. Thoughts linear, logical, no signs of hallucinations or delusions. ] Client Response/Progress/Benefit: [Client was an active participant in group activity and provided input to discussion throughout. She connected with the topic of obstacles and solutions and worked with group to identify common internal and external barriers that could prevent progress towards desired reality. Client discussed with the group the importance of awareness of internal barriers in order to begin addressing them and pevent projecting on others or blaming them. Able to identify her own internal barriers preventing pt from reaching desired reality which included: catastrophizing, fear/paranoia, putting things off, avoidance, and unhealthy coping. Benefited from group as client was able to identify impact of internal barriers on current mental health state and ability to make progress. Will continue IOP to prevent decompensation and improve application of skills learned, as well as improve mood stability.] Narrative Note: []
--- NOTE | 2019-03-07 09:09 | BH.COMM ---
Communication Note - Communication with Client Communication Note: Recieved a letter from pt's outpatient psychiatrist Dr. Robyn Sheth requesting that she stop IOP for two weeks until the side effects of her medications have subsided and then resume IOP.
--- NOTE | 2019-03-22 08:52 | BH.COMM_ITS ---
Communication Note - Communication with Client Communication Note: Pt was scheduled to return to [facility] today after 2 weeks due to outpatient psychiatrist Dr. Mccoy requesting that she allow time for her medications to stablize. Pt called and cancelled stating that she had court this AM. Plan is to return tomorrow.
== END 2019-03-23 23:59 ==
LOC: BHIOP 09:00
PROVIDERS: Referring Provider Psychiatry & Neurology Psychiatry; Visit Provider Psychiatry & Neurology Psychiatry
DX: R11.2 Nausea with vomiting, unspecified (principal); G25.81 Restless legs syndrome; R19.7 Diarrhea, unspecified; R10.9 Unspecified abdominal pain; R68.83 Chills (without fever); H53.8 Other visual disturbances; F41.9 Anxiety disorder, unspecified; Z79.899 Other long term (current) drug therapy; F17.200 Nicotine dependence, unspecified, uncomplicated
CPT/HCPCS: 80053; 81001; 85025; 96361; 96374; 99284; H0035; H2012; J7030; 90832; 90853; A4216

== ENCOUNTER 2019-02-21 16:30 | Emergency (ER) | payer MEDICARE, SELFPAY ==
[2019-02-08 14:30] VITALS: BMI 31.8
[2019-02-21 16:31] VITALS: BP 126/76; PULSE 87; RESP 16; TEMP 36.7; O2SAT 97; BMI 31.6
[2019-02-21 17:35] LABS: Absolute Lymphocyte Count 3.77 X10^3/ul (0.83-4.51); Absolute Neutrophil Count 5.7 X10^3/uL (2.0-7.7); Basophil# 0.02 X10^3/uL; Basophil% 0.2 % (0-1); Eosinophil# 0.15 X10^3/uL; Eosinophils% 1.4 % (0-5); Hematocrit 43.1 % (37-47); Hemoglobin 14.7 g/dl (12.0-15.0); Lymphocyte # 3.77 X10^3/ul (4.0); Lymphocyte % 35.9 % (19-41); Mean Corp Hgb Conc 34.1 g/gl (32-36); Mean Corpuscular Hgb 32.4 pg (27.0-32.0); Mean Corpuscular Volume 94.9 fL (81-99); Mean Platelet Vol. 9.8 fl (6.2-12.0); Monocyte# 0.79 X10^3/uL; Monocyte% 7.5 % (0-10); Neutrophil # 5.74 X10^3/uL (2.7-7.7); Neutrophil % 54.7 % (47-70); Platelet Count 303 K/mm3 (150-450); RBC Distribution Width CV 12.3 % (11.6-14.6); RBC Distribution Width SD 42.2 fl (35.1-43.9); Red Blood Count 4.54 M/mm3 (4.2-5.4); White Blood Count 10.5 K/mm3 (4.4-11.0)
[2019-02-21 17:36] LABS: POSITIVE COUNT NO; POSITIVE DIFFERENTIAL NO; POSITIVE MORPHOLOGY NO
[2019-02-21] MEDS: 0.9% Normal Saline 1,000 ML 1000 ML IV (17:38)
[2019-02-21] MEDS: proMETHazine 25 MG/ML Syringe 6.25 MG IV (17:38)
[2019-02-21 17:47] LABS: ALB/GLOB Ratio 1.1 RATIO (0.9-2.4); AST(SGOT) 9 U/L (15-37); Alanine Aminotransfer ALT/SGPT 19 U/L (13-56); Alkaline Phosphatase 60 U/L (45-117); Anion Gap 4 (5-15); BUN 7 mg/dL (7-18); BUN/Creat Ratio 9.2 RATIO (10-20); Calcium,Total 8.9 mg/dL (8.5-10.1); Chloride 109 mmol/L (98-107); Creatinine, Serum 0.76 mg/dL (0.55-1.02); EST Glomerular Filtration Rate 95 mL/min (>60); Est Glom Filt Rate - Afr Amer 115 mL/min (>60); Globulin 3.8 g/dL (2.2-4.2); Glucose 94 mg/dL (74-106); Potassium 3.7 mmol/L (3.5-5.1); Protein, Total 7.8 g/dL (6.4-8.2); Sodium Level 140 mmol/L (136-145)
--- NOTE | 2019-02-21 17:53 | ED.DCSUM_ITS ---
- ER Visit Summary Date of Service: 02/21/19 Chief Complaint: Abdominal pain, nausea, vomiting, and diarrhea, and restless leg symptoms History of Present Illness: The patient is a 28 F who presents with restless legs, nausea, vomiting, diarrhea, and abdominal pain for the past 2 weeks. Patient was recently started on Abilify by her psychiatrist. Patient states that since she started this her restless legs have gotten progressively worse. Patient states she has since weaned herself off of this. Patient states she has been unable to follow-up with her psychiatrist about this. Patient states she has had abdominal pain for the past 2 weeks that is cramping and diffuse. Patient states that today she started with nausea, vomiting, and diarrhea. Patient denies any hematemesis or coffee-ground emesis. Patient denies any melena or hematochezia. Patient states her diarrhea is watery. Patient denies any urinary complaints. Physical Examination: Vital signs are stable. Patient is afebrile. Patient is in no acute distress. Oromucosa is pink and moist. Neck is supple. Trachea is midline. There is no JVD or lymphadenopathy noted. Heart was regular rate and rhythm. Lungs are clear and equal bilaterally. Abdomen is soft. Bowel sounds are normal. There is mild diffuse tenderness. There is no rebound or guarding noted. Cranial nerves II through XII are intact. There are no focal motor or sensory deficits noted. Patient was having some restless legs initially when I walked into the room however this improved after talking and examining the patient. Test Results: CBC was normal. Comprehensive metabolic profile was essentially within normal limits. Urinalysis does not show any evidence of urinary tract infection. Emergency Department Course and Treatment: Patient was given IV fluids and Phenergan. Patient was still having restless legs on reevaluation. Patient was given a dose of Ativan. Patient was instructed to follow-up with her primary care physician in 5 to 7 days. Patient understood and was agreeable with the plan. All questions were answered. Disposition: Discharge home Impression: 1. Nausea and vomiting 2. Restless leg syndrome This note was generated with [employer] software. It may contain incorrect words, spelling, and punctuation that were not noted in review of the chart prior to signing ED Disposition - Plan for ED Patient: Disposition: Home or Assisted Living Diagnosis: Nausea and vomiting, Restless leg syndrome Instructions: VOMITING (4y-Adult), Understanding Restless Legs Syndrome Referrals: Care Physician,No Primary [Primary Care Provider] -
[2019-02-21 18:07] LABS: Mucous, Urine 0 SEEN /hpf (<or=2+)
[2019-02-21 18:27] LABS: Color, Urine Yellow (Yellow); Glucose, Dipstick Normal (Normal); Ketone-Dipstick Negative (Negative); Leukocyte Esterase-Dipstick 25 /ul (Negative); Nitrite-Dipstick Negative (Negative); Occult Blood-Urine 25 /ul (Negative); Protein-Dipstick Negative (Negative); Urine Bilirubin Dipstick Negative (Negative); Urine Clarity Sl. Cloudy (Clear); Urine Urobilinogen Normal (Normal)
[2019-02-21 18:43] LABS: Bacteria RARE /hpf (None Seen); Red Blood Cells-Urine 0-5 SEEN /hpf (0-5); Squamous Epithelial Cells - UA 0-5 SEEN /hpf (5-10); White Blood Cells 0-5 SEEN /hpf (0-5)
[2019-02-21] MEDS: LORazepam 1 MG Tablet PO (19:51)
[2019-02-21 19:53] VITALS: BP 124/72; PULSE 78; RESP 19; O2SAT 97
== END 2019-02-21 19:55 | disposition home or self-care (01) ==
PROVIDERS: Emergency Provider Emergency Medicine
DX: R11.2 Nausea with vomiting, unspecified (principal); G25.81 Restless legs syndrome; R19.7 Diarrhea, unspecified; R10.9 Unspecified abdominal pain; R68.83 Chills (without fever); H53.8 Other visual disturbances; F41.9 Anxiety disorder, unspecified; Z79.899 Other long term (current) drug therapy; F17.200 Nicotine dependence, unspecified, uncomplicated
CPT/HCPCS: 80053; 81001; 85025; 99284; J7030; A4216

== ENCOUNTER → 2019-03-21 15:42 | Outpatient (CLI) | payer MEDICARE, SELFPAY ==
[2019-02-21 16:31] VITALS: BMI 31.6
[2019-03-21 16:42] LABS: Amphetamine Urine VISTA NEGATIVE (<1000 ng/mL); Barbiturate Urine VISTA NEGATIVE (< 200 ng/mL); Benzodiazepine Urine VISTA NEGATIVE (< 200 ng/mL); Cocaine Urine VISTA NEGATIVE (< 300 ng/mL); Ecstacy Urine VISTA NEGATIVE (< 500 ng/mL); Methadone Urine VISTA NEGATIVE (< 300 ng/mL); PCP Urine VISTA NEGATIVE (< 25 ng/mL); THC Urine VISTA POSITIVE (< 50 ng/mL); Vista UDS pH Range 7
== END ==
PROVIDERS: Referring Provider Psychiatry & Neurology Psychiatry; Visit Provider Psychiatry & Neurology Psychiatry
DX: Z79.899 Other long term (current) drug therapy (principal)
CPT/HCPCS: 80307

== ENCOUNTER 2019-03-24 09:00 | Outpatient (RCR) | payer MEDICARE, SELFPAY ==
[2019-03-24 01:05] VITALS: BP 112/76; PULSE 84; RESP 16
--- NOTE | 2019-03-24 09:10 | BH.SGPN.GN ---
Behaviors/Verbalizations/Mental Status: [] Eye contact is good. Motor activity is appropriate. Appearance is casual. Speech is Appropriate. Mood is anxious/irritable. Affect is congruent. Thoughts are linear and logical. No evidence of psychosis. Reviewed daily check in sheet and reports 3/5 for suicidal ideations and 0/5 for intent. Client Response/Progress/Benefit: [] Pt was an active participant in group discussion. This was patient's first day back to IOP after absence requested by her outpatient psychiatrist. Pt reports that she feels more stabilize after the medication changes that were made however continues to report erratic mood swings, irritability, hopelessness, limited support, toxic relationships, boredom, and lack of control over her life. Feels stuck. Boredom and lack of control have increased irritability, anxiety, and arguments with BF. States she will start arguments because she is bored. Shared a series of events between her mother, BF, and her last week that resulted in conflict, arguments, and eventually a call to crisis as she became suicidal. Blames others for her mood. Group provided feedback and discussed ways to decrease lack of control and boredom on a daily basis. Pointed out ways and things that she does have control over such as her reactions, behaviors, and what she accomplishes during the day. No progress noted since last session. Reports that she is excited to be back in IOP. Will continue in IOP to maintain safety, stabilize mood, and increase coping skills. Narrative Note: []
--- NOTE | 2019-03-24 10:16 | BH.SGPN.GN ---
Behaviors/Verbalizations/Mental Status: []Client alert and oriented, casually dressed and groomed. Eye contact fair-head down at times. Motor activity appropriate. Speech within normal limits. Affect constricted, mood irritable, dysthymic. Thoughts linear, logical, no signs of hallucinations or delusions. Client Response/Progress/Benefit: []Client responded well to session, quiet at first and withdrawn, but then became more engaged. Client stated negative thinking can lead to worsened depression symptoms, relationship issues, and isolation. Client reported when she thinks negative it causes relationship discord and leads to a self-fulfilling prophecy. Client did well to work with the group on defining the various types of cognitive distortions and their impact on mental health. Client reported connecting with distortions of mind-reading, mental filtering, and predicting the future. Client reported her mind-reading has caused client to ?speak things into existence? and start fights. Appeared to benefit from increasing awareness of cognitive distortions and how they can impact emotions and behaviors. Client?s first day back to IOP after a two-week absence for medication management purposes. Client continues to struggle with mood dysregulation, interpersonal relationship issues, and daily functioning. Will continue IOP tx to prevent decompensation.
--- NOTE | 2019-03-24 11:15 | BH.SGPN.GN ---
Behaviors/Verbalizations/Mental Status: []Client alert and oriented, casually dressed. Eye contact fair. Laying head down at times during group. Motor activity appropriate. Speech within normal limits. Affect constricted, mood depressed and anxious. Thoughts linear, logical, no signs of hallucinations or delusions. Client Response/Progress/Benefit: []Pt passive participant during session AEB pt having limited contributions to group and little engagement in completing group activities. While working in small groups to identify distorted thoughts and reframe thoughts pt reported she couldn't think of a personal distorted thought. Pt eventually connected with another peer's that about believing needs to do everything right or she has failed. Pt appeared to connect with the relation between thoughts, emotions and behavior. Pt seemed to benefit from increased awareness of cognitive distortions and understanding impact distortions has on mental health. Pt progress could be hindered if pt continues to be disengaged and not generalizing skills learned. Pt to continue IOP level of care to improve mood stabilization, increase emotional regulation, and prevent decompensation. Narrative Note: []
--- NOTE | 2019-03-24 12:30 | BH.COMM ---
Communication Note - Communication with Client Communication Note: Checked in with patient after IOP. Reports that she was taken off abilify. Reports less restlessness however feels more tired. Pt noted 3/5 for sucidal ideations and 0/5 for intent on self-check in form. She denies any active suicidal ideations, plan, or intent. Describes her thoughts as more passive stating I feel hopeless and a sense of doom ... like life is too much. When asked about sucidal ideation, plan or intent pt states Oh no I'm not anywhere near that. Contracts for safety. Future-oriented. Encouraged ER or crisis if SI becomes overwhelming. She has reached out to crisis in the past with postive reesults. Feels like she has regressed in the past 2 weeks w/o IOP and she has to start from the begining.She is not scheduled to return to IOP untill next week however encouraged her to attend tomorrow if needed. She will think about it. Does not present as imminent danger due to no active SI, plan, or intent. Protective factors, Future-oriented. Contracts for safety. No criteria for involuntary admission and pt denies any concern for her safety. States I learned some new skills today and I'm going to try them over the weekend
--- NOTE | 2019-03-24 15:31 | BH.TPR ---
Treatment Plan Review Date of Treatment Plan Review:: 03/24/19
--- NOTE | 2019-03-28 09:05 | BH.SGPN.GN ---
Behaviors/Verbalizations/Mental Status: []Client alert and oriented, casual dress, hygiene tended to. Eye contact fair. Motor activity appropriate. Speech within normal limits. Affect constricted, mood depressed. Thoughts linear, logical, no signs of hallucinations or delusions. Reviewed client?s symptom tracker, pt indicated a 3/5 for suicidal thoughts and a 0/5 for suicidal intent. Informed IOP individual therapist. Client Response/Progress/Benefit: []Pt was quiet, provided input when elicited by therapist. Pt shared she had a migraine which was making it hard to focus. Emotion for today is tired. Pt reported she is feeling torn because her mom moved back to [place] on Thursday. Pt stated her mom had made comments that she would stay in [place] so she can be close to pt, but pt stated she left again. Pt reported although currently still upset about her mom leaving she can note it could be a potential positive because she often has her mom make decisions for pt. Pt stated this could be an opportunity for her to be accountable for herself and make positive changes. Progress noted with pt being able to reframe a stressor into a positive. Continued IOP tx recommended to improve use of healthy skills, prevent decompensation, and continue to improve emotion regulation skills. Narrative Note: []
--- NOTE | 2019-03-28 11:20 | BH.SGPN.GN ---
Behaviors/Verbalizations/Mental Status: [Eye contact fair to good. Motor activity is appropriate. Appearance is casual. Speech is appropriate rate and tone. Mood is euthymic, anxious. Affect is congruent with mood. Thoughts are linear and logical. No evidence of psychosis.] Client Response/Progress/Benefit: [Client receptive to session, mostly attentive and providing insight to discussion, asking questions throughout. At times Client struggling to remain on topic or interrupting others. Client participated in the activity and processed emotions and barriers associated with making change. Client appeared to connect with discussion on weighing the pros and cons associated with change and benefited from learning to do so through use of decisional balance sheet. Identified a change she would like to make to improve mental health as: improving healthy communication with supports. Client reported potential benefits of change as: getting her needs being met, improving her mood and relationship with others, and increased self-confidence. While the costs of not making the change included: conflict with supports, feeling ignored, and increased agitation. Progress noted in ability to identify how making this change may promote additional healthy behaviors and thinking patterns. Recommended continued IOP to continue to promote use of healthy coping skills and improve interpersonal effectiveness skills.] Narrative Note: []
--- NOTE | 2019-03-28 15:20 | BH.MDN_ITS ---
Multi-Disciplinary Note - Note 30-min Individual Time Started:: 10:35 Date: 03/28/19 Purpose of session/treatment goals addressed:: Purpose of session was to assess pt's current symptoms and stressors. Other topics included: reviewed treatment goals since pt has been out of IOP for two weeks due to medical reasons and processed recent stressor of mom moving back to [place]. Eye Contact:: Fair Motor Activity:: Restless Appearance:: Casual Speech:: Rambling Mood:: Anxious, Depressed Affect:: Labile Thoughts:: Linear, Logical, No evidence of hallucinations/delusions noted Staff Interventions:: Therapist used open ended questions to elicit pt's current symptoms and stressors. Therapist processed the past two weeks since pt has been off of IOP due to side effects from a medication. Therapist assisted pt with identifying the negative impact drinking alcohol as a coping skill has on her mental health and functioning. Therapist helped pt with reframing negative thought patterns related to pt's mom moving back to [place]. Therapist reviewed pt's treatment goals, discussing progress and areas that need continued focus. Client Response:: Pt reported since taking the two weeks off IOP due to medication side effects she has improved with decreased restlessness. However, pt reported she is experiencing more depressed symptoms in the past week. Pt stated she's experienced increased suicidal ideation in the past week, denies suicidal intent or plan. Pt reported depressive symptoms and stress with her mom resulted in patient starting to use alcohol on of last week everyday until yesterday. Pt reported he has used alcohol in the past to cope as well and recognizes alcohol doesn't solve any of her problems, often just exasperates the issue. Pt shared she is done using alcohol as her way of coping. Pt stated her mom decided to move back to [place] which pt stated is upsetting. Pt reported her mom had said she wouldn't leave and now pt states she feels abandoned. Pt shared she is trying to see positives to her mom moving back. Pt stated with her mom gone she now has the opportunity to make decisions for herself instead of relying on her mom to make all her decisions. Pt reported she often used her mom as a crutch so she did have to face responsibility for herself. Pt stated continuing to feel torn about the situation, but trying to focus on positives. Pt reported she wants to continue to focus on strengthening and learning healthy coping skills to manage emotions and symptoms. Pt shared she struggles with using coping skills in the moment because her emotions tend to take over. Pt reported she'd like to be able to use her skills in the moment on a more consistent basis. Risks/Concerns:: Pt endorses suicidal ideation denies suicidal plan or intention. Pt states suicidal ideation has increased over the past week. Pt reports she will have thoughts like I don't want to exist anymore. Pt reports she does not want to actually and has no intention to follow through with suicidal ideations. Pt future focused. Pt states she has hope things can get better. Progress Toward Goals/Plan:: Progress noted with pt no longer experiencing res tlessness from side effect of medication. Pt struggling with increased depressive symtoms, suicidal ideations, and emotional dysregulation. Pt to continue IOP level of care to increase utilization of healthy coping skills, maintain safety, and prevent decompensation. Time Stopped:: 11:13
--- NOTE | 2019-03-30 14:19 | BH.COMM ---
Communication Note - Communication with Client Communication Note: Patient was scheduled to meet with psychiatrist today, however no show/no called transportation. Plan is for patient to meet with psychiatrist next week.
--- NOTE | 2019-03-30 14:48 | BH.COMM ---
Communication Note - Communication with Client Communication Note: Therapist spoke with client on the phone as she no called/no showed for group today. Client reported sleeping through her alarm and missing transportation. Therapist reminded client to call IOP and transportation if she oversleeps or needs to cancel in the future. Client reports plan to attend IOP tomorrow 03/31/19.
--- NOTE | 2019-03-31 09:03 | BH.SGPN.GN ---
Behaviors/Verbalizations/Mental Status: []Client alert and oriented, disheveled appearance. Eye contact poor-eyes closed at times. Motor activity appropriate. Speech within normal limits. Affect constricted, mood irritable. Thoughts linear, logical, no signs of hallucinations or delusions. Reviewed client?s symptom tracker, no risk for suicidal ideation, plan, or intent as of 03/31/19. Client's symptom tracker scores were within client's baseline. Client Response/Progress/Benefit: []Client responded somewhat well to session, eyes closed at times due to client?s reported mouth pain. Client shared ?if my eyes are closed just know I?m listening.? Client reports feeling ?out of it? today due to being ?plagued with mouth pain.? Client stated she broke a tooth and had to go to the emergency room yesterday where client was given pain medication. Per client?s report she cannot get into the dentist for two weeks. The group encouraged client to continue advocating for herself to see if she can move up the date. Client struggled to identify positives today during check in, but she was able to identify her boyfriend being supportive as a positive today. Client started using self-deprecating language and this lube attendant helped client catch and challenge this in the moment. Client appeared to benefit from connecting with peers and challenging negative self-talk. Limited progress due to client?s variable participation in group and self-report of inconsistent use of coping skills. Will continue IOP to prevent decompensation and maintain safety.
--- NOTE | 2019-03-31 10:10 | BH.SGPN.GN ---
Behaviors/Verbalizations/Mental Status: []Client alert and oriented, disheveled appearance. Eye contact fair-appeared to be sleeping at times. Motor activity appropriate. Speech tangential, abrasive. Affect congruent, mood irritable. Thoughts linear, although making loose associations at times no signs of hallucinations or delusions. Client Response/Progress/Benefit: []Client was somewhat engaged during session. Falling asleep and when contributing to discussion her comments were loosely associated at times. Client reported self-care means taking care of ?your mental health and not letting people walk all over you.? Client listened to the discussion of the common myths about self-care including self-care is selfish, easy, something one does alone, just personal hygiene, and always fun. Provided examples of self-care activities such as boundary setting, doing hair and nails, and taking showers. Client agreed with peers that if one does not engage in self-care it will likely result in being overwhelmed, burnout, and more depressed. Client declined to engage in activity. Client seemed to benefit from increased awareness of the importance of self-care. Client continue to show limited progress due to sleeping during sessions and self-reported lack of implementing coping skills. Will continue tx to prevent decompensation, maintain safety, and increase use of healthy coping skills.
--- NOTE | 2019-03-31 11:15 | BH.SGPN.GN ---
Behaviors/Verbalizations/Mental Status: [Client alert and oriented, casually dressed and appropriate groomed. Eye contact good. Motor activity appropriate. Speech within normal limits, at times rambling. Affect congruent, mood anxious, euthymic. Thoughts linear, logical, no signs of hallucinations or delusions.] Client Response/Progress/Benefit: [Client receptive of session, actively listening and providing positive contributions to discussion. At times struggling with off topic remarks though able to be redirected. Willing to complete worksheet activity. Participated as the group further processed the activity and connected with the importance of self-care in maintaining mental health and promoting balance. Client completed self-assessment activity on the different areas of self-care and was able to identify current practices she uses and areas she would benefit to improve upon. Client reported she can improve her social and emotional self-care. Client set a goal to improve in the area of social self-care. Client?s goal is to practice using ?I? statements and taking breaks when becoming upset. Client shared this would benefit client because client has struggled with effective communication and emotion regulation with supports which reinforces self-doubt and depression. Client appeared to benefit from increasing awareness of how she can improve her self-care balance. Progress noted as client has been able to increase insight regarding impact of personal decisions on her mental health and relationships. Will continue IOP tx to promote gains and to further improve daily functioning.] Narrative Note: []
--- NOTE | 2019-04-05 09:00 | BH.SGPN.GN ---
Behaviors/Verbalizations/Mental Status: [] Eye contact is good. Motor activity is appropriate. Appearance is disheveled. Speech is Appropriate. Mood is depressed. Affect is flat. Tearful for majority of the session. Thoughts are linear and logical. No evidence of psychosis. Reviewed daily check in sheet and pt reports 5/5 for suicidal ideations and 0/5 for intent. Therapist notified and will check-in with patient individual. Client Response/Progress/Benefit: [] Pt was active participant in group. Tearful. Shared with the group that the family has learned that her GMA will most likely pass away in the next week. TABITHA has been ill for some time. Her mother and sister are coming into town due to this. Pt initially reported anger regarding the events and circumstances of her GMA illness however was able to reframe her thoughts and focus on things that she can control and the importance of spending time with her GMA. Other psychosocial stressors include her current legal issues and probation. Has not had cannabis for several weeks due to being on probation which has been challenging as she reports that smoking was a coping mechanism. Increased anxiety, restlessness, irritability, and sadness. Was honest with the group that she had suicidal thoughts stating they are just thoughts and I would never do anything. Discussed how difficult life is currently however future-oriented stating things will pass. Appears motivated to resolve her legal issues. Reports that she gets support from her BF and her sister who is coming into town. Group normalized her emotions and praised her for her reframing and motivation. Smiled and was engaged with other group members. States I'm glad that I came her and didn't sit at home crying. Continues to grieve. Progress noted in regards to thought reframing. Will continue in IOP to maintain safety, stabilize mood, and prevent decompensation. Narrative Note: []
--- NOTE | 2019-04-05 10:15 | BH.SGPN.GN ---
Behaviors/Verbalizations/Mental Status: []Client alert and oriented, disheveled appearance. Eye contact good. Motor activity appropriate. Speech within normal limits for client-but comes off abrasive. Affect constricted, mood anxious, irritable. Thoughts linear, logical, no signs of hallucinations or delusions. Client Response/Progress/Benefit: []Client participated in group discussion and activity. Client reported it is important to learn how to cope with conflict to prevent ?fighting over nothing.? Worked together with the group to define and identify differences between internal and external conflict. Group identified and discussed the benefits of addressing internal/external conflict which includes; not letting emotions stockpile, sticking up for self, and bettering mental health. Client worked with group to identify barriers to overcoming conflict which included; self-sabotage, poor emotional regulation, lashing out, manipulation, avoidance, externalizing, and negative thinking. Client shared awareness that ?I try to make my bad day everyone?s bad day? which causes client and others more distress. Attentive during psychoeducation on different conflict styles such as avoiding, accommodating, competing, and collaborative. The group began to review benefits and drawbacks to each style. Benefited as she was able to identify and define conflict as well as increase awareness of how conflict style impacts mental health. Progress noted as client reports increased self-awareness of her maladaptive behaviors and stated, ?It?s my responsibility to change.? Will continue IOP tx to promote emotional regulation and prevent decompensation.
--- NOTE | 2019-04-05 11:16 | BH.SGPN.GN ---
Behaviors/Verbalizations/Mental Status: [Client alert and oriented, casually dressed though appearing unbathed. Eye contact good at times tearful. Motor activity appropriate. Speech often loud and abrasive in tone. Affect congruent to topic being discussed, mood depressed, anxious. Thoughts linear and logical, no signs of hallucinations or delusions.] Client Response/Progress/Benefit: [Pt responded well to session, providing input and actively listening throughout. At time patient struggled with off topic remarks, however displayed much progress in ability to respond to redirection and remain mostly on topic with discussion at hand. She did well to work with the group on identifying the various characteristics, potential drawbacks and benefits, as well as appropriate times to use the conflict resolution styles not reviewed in previous group. Pt indicated connecting most with the ?Accommodating? approach to conflict when involving others and identified that at times this has led to ?feeling out of control of my own emotions?. Pt appeared to benefit from increasing awareness of her personal conflict resolution style and from learning ways to increase healthy conflict resolution. Pt reports plans to practice avoiding toxic people this weekend to prevent unnecessary conflict and spend more time with her sister whom she identified as a healthy support. Pt progress noted in increased self-reflection and insight regarding impacts of conflict style on her mental health and relationships with others. Recommended continued IOP tx to improve emotion regulation skills, better stabilize mood, and prevent decompensation.] Narrative Note: []
--- NOTE | 2019-04-11 08:48 | BH.COMM ---
Communication Note - Communication with Client Communication Note: Pt cancelled again today for IOP. She was scheduled to see psychiatry today. This will have been her second time counseling when schedule to see psychiatry. She continues to be followed by her traditional outpatient psychiatrist. It has been an extended period of time since she has met with [facility] psychiatrist.
--- NOTE | 2019-04-12 10:07 | BH.SGPN.GN ---
Behaviors/Verbalizations/Mental Status: []Client alert and oriented, casually dressed and groomed. Eye contact good. Motor activity restless. Speech within normal limits. Affect constricted, mood anxious and depressed. Thoughts linear, logical, no signs of hallucinations or delusions. Client Response/Progress/Benefit: []Pt receptive to session, provided input and actively listening throughout discussion on stress. Able to brainstorm with the group positive and negative aspects of stress on physical and mental health. She participated in identifying current stressors impacting mental health. Pt's current stressors include: finances, mental health, relationships, court system, life and family. Pt indicated life included world issues, difficulty seeing any positives, and pressure to not make any mistakes. Appeared to benefit from gaining awareness of own current stressors and learning about the impact stress has on overall wellbeing. Progress noted in improved ability to identify impact of current stressors on mental health and wellbeing. Recommended continued IOP tx to improve emotional regulation, improve utilization of healthy coping, and prevent decompensation. Narrative Note: []
--- NOTE | 2019-04-12 11:09 | BH.SGPN.GN ---
Behaviors/Verbalizations/Mental Status: [Client alert and oriented, casual appearance and appropriate grooming. Eye contact fair to good. Motor activity appropriate. Speech within normal limits. Affect congruent, mood euthymic and anxious. Thoughts linear, logical, no signs of hallucinations or delusions.] Client Response/Progress/Benefit: [Pt engaged in session as evidenced by pt listening attentively to others, participating in activity, and providing input throughout session. Pt worked with the group to complete the challenge activity and did well to remain engaged while being challenged to manage in the moment stressors. Pt ability to take on a leadership role as well as apply stress management skills indicates progress. Pt was able to identify barriers encountered that may also impact managing stress in daily life, indicating that external barriers can further increase stress and prevent healthy coping if internal barriers are not taken care of effectively. Pt actively listening during discussion about the 4 A's of managing stress. Expressed wanting to utilize adapt/acceptance in order accept that she cannot manage current number of responsibilities and adapt expectation to create more realistic goals for self. Pt seemed to benefit from increased awareness of the impact of stress on mental health and increasing repertoire of stress management strategies. Pt to continue in IOP to prevent decompensation, continue promote use of healthy coping and thought challenging skills, and decrease symptoms of depression.] Narrative Note: []
--- NOTE | 2019-04-12 14:24 | BH.MDN ---
Multi-Disciplinary Note - Note 45-min Individual Time Started:: 09:05 Date: 04/12/19 Purpose of session/treatment goals addressed:: Purpose of session was to asssess pt's curent symptoms and stressors. Other topics included: assessing for suicidal lethality, challenged distorted thoughts, and self-care. Eye Contact:: Fair Motor Activity:: Restless Appearance:: Disheveled Speech:: Rambling, Rapid Mood:: Anxious, Depressed Affect:: Labile Thoughts:: Racing, No evidence of hallucinations/delusions noted Staff Interventions:: Therapist used open ended questions to elicit pt's current symptoms and stressors. Therapist assessed for suicidal lethality. Provided psychoeducation about importance of self-care. Discussed self-care activities pt can engage in to help decrease current stress level. Homework given for pt to identify at least two self-care activities from self-care handout provided she can engage in. Client Response:: Pt reported she is struggling because she has house arrest, 150 days of potential [place] [facility] time if she breaks probation, blake is dying, and conflict with her mom. Pt stated she wishes she were . Pt reported she is struggling with regulating her emotions due to all the stressors she is currently facing. Pt stated her mom keeps saying hurtful comments to pt. Pt reported she is trying to not give up. Pt agreed she isn't doing a good job of engaging in self-care activities. Pt connected with importance of taking care of herself during this stressful time. Pt agreeable to choose at least two self-care activities from provided self-care wheel handout provided. Risks/Concerns:: Pt reports currents thoughts of wishing she were . Pt reports she doesn't have any thoughts of how she would kill herself, denies intention or plan. Pt agreeable to call 911 or go to nearest emergency room if feel unable to maintain safety. Discussed reducing access to lethal means. Progress Toward Goals/Plan:: Progress noted with pt being able to keep herself safe despite experiencing several psychosocial stressors. Regression in progress with decreased emotional regulation, passive thoughts of , increased negative thoughts, and inconsistent application of skills. Pt to continue IOP to prevent decompensation and improve emotional regulation. Time Stopped:: 09:45
--- NOTE | 2019-04-15 09:00 | BH.SGPN.GN ---
Behaviors/Verbalizations/Mental Status: [] Eye contact is good. Motor activity is appropriate. Appearance is disheveled. Speech is Appropriate. Mood is irritable. Affect is congruent. Thoughts are linear and logical. No evidence of psychosis. Reviewed daily check in sheet and pt reports 5/5 for suicidal thoughts and 0/5 for intent. Therapist will complete f2f after group. Client Response/Progress/Benefit: [] Pt was active participant in group discussion. Pt talked at length regarding her stressors and current mood. Extremely fearful regarding her legal issues and is fearful that she will get snf time instead of house arrest. This is primary stressor. Pt reports that previous coping included cannabis which she cannot do because she is on probation. Exacerbation due to possibly of GMA (Hospice) and significant legal issues. Reports that she is laying in bed all day. BF appears to be supportive and encouraging. Not attempting skills as she feels to overwhelmed. Reports passive thoughts of and desire to be however denies active suicidal ideations, plan, or intent. Told group that she often wishes that she could be dying like her GMA. Group was supportive and offered encouragement and feedback. Encouraged certain skills and thought reframing. No progress noted. Psychosocial stressors impacting functioning, mood, and attendance in IOP. Will continue in IOP to provide support, prevent decompensation, improve functioning, and maintain safety Narrative Note: []
--- NOTE | 2019-04-15 11:09 | BH.MDN_ITS ---
Multi-Disciplinary Note - Note 30-min Individual Time Started:: 10:20 Date: 04/15/19 Purpose of session/treatment goals addressed:: Risk assessment . Review of current symptoms and progress in IOP Eye Contact:: Good Motor Activity:: Appropriate Appearance:: Casual Speech:: Appropriate Mood:: Irritable, Depressed Affect:: Flat Thoughts:: Linear, Logical, No evidence of hallucinations/delusions noted Staff Interventions:: Completed CSSR. Utilized [place] techniques to elicit change behavior. Client Response:: Pt reports that she continues to ruminate on her current legal issues. She is fearful that she might go to long term, however it appears likely she will get house arrest. Distress related to being uncertain about the future. Also ruminating and feeling guiltly about her past choices. Noted 5/5 for suicidal thoughts on self check-in sheet this AM. Reported 0/5 for intent or thoughts to act. Completed CSSR screener and pt scores as low risk. Denies any suicidal ideations, plan, or intent in the past month. No suicidal attempts in over 3 months. Reports thoughts or wishes that she was or could fall asleep and not wake up. Reports that her GMA is in Hospice and she often wishes she could take her place. States I don't want to kill myself nor do I have any plan I just wish at times that I wasn't alive. Future-oriented. Does not present as imminent danger due to no active ideations, plan, or intent. CSSR indicates low risk due to no thoughts to kill self in the past month. Thoughts are passive and more relaterd to wish or desire to be . Risks/Concerns:: refer above Progress Toward Goals/Plan:: Limited progress. Pt has had poor attendance. Has missed last 3 appointments with psychiatrist. Benefits and some progress noted when she shows however typically presents in crisis related to fear of long term time. Medication compliant. Support is BF. Not utilizing skills. Isolative. Plan is to continue in IOP on consistent basis and follow through with psychiatrist apporintments. Pt is in agreement. Time Stopped:: 11:00
--- NOTE | 2019-04-19 09:00 | BH.SGPN.GN ---
Behaviors/Verbalizations/Mental Status: [] Eye contact is good. Motor activity is appropriate. Appearance is disheveled. Speech is Appropriate. Mood is depressed/irritable. Affect is congruent. Thoughts are linear and logical. No evidence of psychosis. Reviewed daily check in sheet and pt reports 4/5 for suicidal thoughts and 0/5 for intent. Therapist notified. This has been pt's baseline in the past weeks. Client Response/Progress/Benefit: [] Pt was an active participant in group discussions. Pt's symptom tracker indicates 4/5's for anxiety, panic, agitation, and hopelessness. This all stems mostly from fear related to legal issues and GMA's current illness. Notes improved mood since last week. Increased hope and motivation. States the suicidal thoughts have eased since last week. Reports that she is going to attempt to be more involved in [employer] at the request of her GMA. She is seeking more social support, purpose, and engagement in activities and believes [employer] may help with those. Notes improvement in mood. Tearful at times when discussing some family conflicts and her legal uncertainty however notes that she is working on what she can control in the present. Benefited from group support, encouragement, and feedback. Progress noted from last week. Will continue in IOP to maintain safety, prevent decompensation, and increase health coping skills. Narrative Note: []
--- NOTE | 2019-04-19 10:10 | BH.SGPN.GN ---
Behaviors/Verbalizations/Mental Status: [] Eye contact is good. Motor activity is appropriate. Appearance is disheveled. Speech is Appropriate. Mood is depressed. Affect is flat. Thoughts are linear and logical. No evidence of psychosis. Client Response/Progress/Benefit: [] Pt was an active participant in group discussion and activity. Contributed to discussion on quote of the day. Group worked together to come up with common negative forces in thief lives which can hold them back from growth. There included; toxic relationships, negative thoughts, cognitive distortions, fear of failure, anger, and unhealthy coping skills (alcohol, sleeping to escape, isolation). Group then worked together to identify common positive forces which help us grow. Theses included; Healthy coping skills, positive support, self-care, patience, realistic and positive thinking, and following treatment suggestions. Pt was attentive during psychoeducation on the importance of utilizing many aspects of positive forces to help one grow. Benefited from group with increased insight and awareness on the impact of negative and positive forces on mental wellness. Narrative Note: []
--- NOTE | 2019-04-19 11:10 | BH.SGPN.GN ---
Behaviors/Verbalizations/Mental Status: []Client alert and oriented, casually dressed and fair grooming. Eye contact fair. Motor activity appropriate. Speech within normal limits. Affect flat and mood depressed. Thoughts linear, logical, no signs of hallucinations or delusions. Client Response/Progress/Benefit: Client provided input at times during discussion, at times appeared disengaged as evidenced by pt laying head down on table not appearing to listen. Client did complete worksheet identifying her positive and negative forces in life. Client identified positive forces that aid in progressing toward mental health goals include: IOP, counseling, family, friends, cat, and boyfriend (sometimes). Client indicated negative forces that prevent progress include: negative thoughts, boyfriend (sometimes), not having own transportation, not many meaningful relationships, and not seeing positives in life. Client identified negative thinking as the force that impacts her ability to move forward the most. Client seemed to benefit from increased awareness of personal positive and negative forces in life and impact they have on mental health and wellness. Client to continue IOP level of care to decrease depression, increase utilization healthy coping and prevent decompensation. Narrative Note: []
--- NOTE | 2019-04-20 09:00 | BH.SGPN.GN ---
Behaviors/Verbalizations/Mental Status: [] Eye contact is good. Motor activity is appropriate. Appearance is disheveled. Speech is Appropriate. Mood is depressed/irritable. Affect is congruent. Thoughts are linear and logical. No evidence of psychosis. Reviewed daily check in sheet and pt reports 3/5 for suicidal ideations and 0/5 for intent. Client Response/Progress/Benefit: [] Pt was an active participant in group discussion. Daily symptom tracker shows decrease in suicidal thoughts from yesterday. Also notes a decrease in panic, agitation, and hopelessness from yesterday. Pt reports that she is 'burnt out' and exhausted. This is mainly due to family conflicts and continued health issues with GMA. Notes that she is still planning on going to [employer] more to increase purpose and to appease her grandma. Legal issues continue to be primary stressor however notes that she is beginning to acceptance that she has no control over the result and is practicing some acceptance skills. Utilizing some mindfulness and focusing on the present and what she can control. Ruminates on what her family is doing or thinking at times. Progress noted however feels overwhelmed emotionally and physically. Isolation. Has appointments the rest of the week and reports that she needs to cancel IOP tomorrow because I can't handle it all. Consistent attendance continue to impact progress. Benefited from group support and encouragement. Will continue in IOP to maintain safety, provide support, and prevent decompensation. Narrative Note: []
--- NOTE | 2019-04-20 10:16 | BH.SGPN.GN ---
Behaviors/Verbalizations/Mental Status: []Client alert and oriented, disheveled in appearance. Eye contact good. Motor activity appropriate. Speech within normal limits. Affect constricted, mood anxious and depressed. Thoughts linear, logical, no signs of hallucinations or delusions. Client Response/Progress/Benefit: []Pt provided input at times during discussion, engaged in group activity and listened attentively to peers. Pt did well to remain attentive as fellow participants discussed connections between activity and barriers/supports to development of a resilient lifestyle. Pt benefitted from brainstorming benefits of being resilient which included: stronger than before, improving ability to cope, builds confidence and self-esteem, and sense of accomplishment. Pt reported if too stuck in your ways then won't adapt to environment and will stay stuck. Pt stated although she knows it's beneficial to be resilient, she can relate with others that sometimes she is too exhausted to keep bouncing back from difficult situations. Pt progressing with continued application of skills outside treatment environment and reporting decreased suicidal ideation. Recommend continued IOP tx to prevent decompensation, maintain safety, as well as continue to use healthy coping skills to manage mental health symptoms. Narrative Note: [] Narrative Note: []
--- NOTE | 2019-04-20 12:24 | PCM.BH.PN ---
Progress Note Progress Note: ] History of Present Illness/Interim History: [Patient is a 28-year-old single female with a long psychiatric history of borderline personality disorder and bipolar disorder (NOS).] He is seen today in routine follow-up during her participation in the IOP program at [facility]. The patient feels that she is still very anxious and depressed. She admits that she stopped her Abilify on her own since I last saw her because she felt it made her agitated and it made her restless leg syndrome worse. She is still taking her Prozac 40 mg p.o. daily which she has been on for almost 2 months now. She says that her anxiety is worsened recently because her grandmother is still dying and she feels that she may soon. The patient states that she is upset that other people can but she cannot. She denies any active suicidal ideation but does admit to passive thoughts. Denies any recent self-harm. She is also very worried because her hearing is coming up due to her [place] theft charges and she may have to go to [place] [facility] for 30 days soon. She states that she recently quit using marijuana and this may have also made her feel more anxious lately. Current Psychiatric Medications: She DC'd her Abilify. Prozac 40 mg p.o. daily, Vistaril 50 mg p.o. twice daily. And she has a little bit of Klonopin at home that she takes a little once or twice a day. []] Mental Status Examination: [] Patient is a 28-year-old female who appears normal for stated age. She is casually dressed and groomed with good hygiene. She has prominent tattoos on her arms. She has a normal gait and is cooperative during the exam. She has no psychomotor agitation or retardation. Speech is normal rate and rhythm and fluent with no pressured speech. Her mood is somewhat depressed and anxious. She states seated throughout the entire interview. Thought processes organized and goal-directed. Thought content: No evidence of active suicidal or homicidal ideation. No evidence of hallucinations or delusions. Patient does admit that she resents that other people can and she cannot but denies having a plan or actively thinking about suicide. Judgment limited. Insight: Some small amount present. Impulsivity moderate to high. Diagnoses: [] Pesotum I: Borderline personality disorder, bipolar disorder, NOS [], Pesotum II: Cluster B traits [] Pesotum III: [Restless leg syndrome Plan: [Had a long discussion with Mor regarding medications. She is adamant that she does not want to be on any more antipsychotics. She felt the Abilify made her agitated and increased her restless leg syndrome the second time she restarted at a lower dose. She refuses to start a mood stimulator or an antipsychotic. She refuses lithium, Depakote, Seroquel, Latuda or any other. She agrees only to take Lamictal to help stabilize her mood. The Prozac was not increased as the patient has a type of bipolar disorder and I did not want to further destabilize her. A prescription was given for Lamictal and Vistaril. The risks, options, possible complications and side effects of those medications and all the other meds she is on were discussed with the patient she understands and accepts these. She understands that the Lamictal may take 4 weeks to give a good effect. I discussed with the patient that I was concerned that she may deteriorate further and could end up back in the hospital. She says she feels safe now and she agrees to let us know at the IOP program or to go to the emergency room if she feels unsafe at any time. I feel that if the patient gets sentenced to [place] [facility] or her grandmother dies its possible her situation could worsen. She will continue the IOP program as the support, education, structure and individual and group therapy is necessary to prevent exacerbation of her symptoms which might require readmission to the hospital.]
--- NOTE | 2019-04-21 07:33 | BH.MDN_ITS ---
Multi-Disciplinary Note - Note 30-min Individual Time Started:: 11:28 Date: 04/21/19 Purpose of session/treatment goals addressed:: Purpose of session was to assess pt's current symptoms and stressors. Other topics included: challenging distorted thoughts, identifying personal pitfalls, and establishing a small goal for the weekend. Eye Contact:: Good Motor Activity:: Appropriate Appearance:: Disheveled Speech:: Appropriate Mood:: Anxious, Depressed Affect:: Labile Thoughts:: Linear, Logical, No evidence of hallucinations/delusions noted Staff Interventions:: Therapist used open ended questions to elicit pt's current symptoms and stressors. Therapist processed stressors with interpersonal relationships and grandmother's declining health. Therapist assisted pt with recognizing current behavior isn't helping her progress foward in life. Adali brown worked with pt to identify a small goal she can focus on for the next week to increase independence. Client Response:: Pt stated sh has been doing better with accepting those things she can't control in regards to her legal trouble. Pt reported she is prepared to serve the consequences of either house arrest or custodial time. Pt reported she has been letting the anxiety of the conseqences rule her life, but has moved to acceptance she can get through whatever the consequence is. Pt stated she has been having increased suicidal ideations in the last two weeks. Pt stated she was hating waking up everyday. Pt reported she becomes jealous when thinks about her grandma being able to to end the suffering. Pt shared this week she has been doing better with challenging her suicidal thoughts. Pt reported she doesn't really want to , but the suicidal thoughts pop up everyday. Pt shared she believes she is taking positive steps to help herself with progress. Pt stated she was able to make it to IOP two times this week, which pt identified as progress. Pt reported she plans to return to [facility] this weekend because she is thinking it could help her with moving forward in life. Pt stated she continues to struggle with her relationship with her boyfriend. Pt reported she doesn't ever want to be alone, which results in having her boyfriend being with her all the time. Pt stated she has her boyfriend sit in the bathroom while she is showering because she doesn't want to be alone with her own thoughts. Pt stated she recognizes these behaviors are dysfunctional and codependent, but she is unsure of how to break the cycle. Pt struggled with creating a goal that could assist pt with increasing independece from others. With assistance pt stated over the weekend she will focus on letting her boyfriend do his own thing, clean the litter box, and redecorate her bedroom. Risks/Concerns:: Pt reports suicidal ideation, denies suicidal intention and plan. Pt states suicidal thoughts have decreased compared to the last two days. Pt willing to plan for safety. Agreeable to go to nearest emergency room or call 911 if does not feel can maintain safety. Progress Toward Goals/Plan:: Pt progress limited given pt continues to struggle with applying healthy skills outside treatment environment. Progress noted with decreased suicidal ideation. Pt's attendance seems to be a barrier to progress. Pt has insight into her maladaptive behavior, but seems to lack motivation or desire to make changes towards improving her situation. Pt to continue IOP to maintain safety, increase emotional regulation skills, and prevent decompensation. Time Stopped:: 12:02
--- NOTE | 2019-04-28 12:54 | BH.COMM ---
Communication Note - Communication with Client Communication Note: Pt stopped into IOP today on her way to court. She picked up her transportation schedule. She is meeting with chief resource officer today to determine if she will be on house arrest or go into senior living for 30 days. She is smiling and states i'm OK with either. Denies any suicidal ideations, plan, or intent. Denies any desire to be or fall asleep and not wake up. Hygiene is improved from last week. Notes improved mood and acceptance of her sentence. Informed us that she would have someone call if she goes to senior living to cancel her transportation. She would like to come back if that occurs.
== END 2019-04-23 23:59 ==
LOC: BHIOP 09:00
PROVIDERS: Referring Provider Psychiatry & Neurology Psychiatry; Visit Provider Psychiatry & Neurology Psychiatry
DX: F60.3 Borderline personality disorder (principal); G25.81 Restless legs syndrome; F31.9 Bipolar disorder, unspecified; Z79.899 Other long term (current) drug therapy
CPT/HCPCS: H0035; 90832; 90834; 90853

== ENCOUNTER 2019-04-29 09:00 | Outpatient (RCR) | payer MEDICARE, SELFPAY ==
[2019-04-24 00:53] VITALS: BP 112/76; PULSE 84; RESP 16
--- NOTE | 2019-04-29 22:21 | BH.MDN ---
Multi-Disciplinary Note - Note 30-min Individual Time Started:: 09:05 Date: 04/29/19 Purpose of session/treatment goals addressed:: Purpose of session was to assess pt's current symptoms and stressors. Other topics included: identifying treatment progress, coping skills, and self-care. Eye Contact:: Good Motor Activity:: Appropriate Appearance:: Casual Speech:: Appropriate Mood:: Euthymic Affect:: Congruent Thoughts:: Linear, Logical, No evidence of hallucinations/delusions noted Staff Interventions:: Therapist used open ended questions to elicit pt's current symptoms and stressors. Processed stressor of grandma's declining health, discussing the different ways people grieve. Elicited pt's thoughts about treatment progress. Collaborated with pt to identify self-care activities to engage. Client Response:: Pt reported he grandlarisa has gone into a permanent coma, which pt stated she feels like she has made peace with the situation. Pt stated she is sad, but feels like her grandma is ready to pass because has been in a lot of pain recently. Pt reported she gets into arguments with her mom because the way pt is grieving is different then her mom. Pt recognized importance of setting boundaries with her mom to decrease own personal stress level. Pt reported she found out she will be getting house arrest instead of going to care home. Pt stated she is ready to face the consequences of her actions and is just relieved for a decision to be made. Pt noted progress with herself because she is managing her emotions despite experiencing several stressors. Pt reported she feels she is using her machuca mind more often instead allowing her emotional mind to control her decisions. Pt reported she hasn't had a suicidal thought in five days, which pt stated is signficiant progress for her. Pt stated for self-care she plans to go to [facility] and will allow herself to relax. Risks/Concerns:: Denies current suicidal ideation, plan or intention to date. Progress Toward Goals/Plan:: Progress noted with pt managing her emotions when experiencing stress of her grandma's declining health, legal problems and conflictual relationship with her mom. Pt reporting increased use of healthy coping skills and focusing on being in machuca mind. Pt to continue IOP to maintain gains, increase consistent application of healthy skills and prevent decompensation. Time Stopped:: 09:36
--- NOTE | 2019-05-10 09:10 | BH.SGPN.GN ---
Behaviors/Verbalizations/Mental Status: [] Eye contact is good. Motor activity is appropriate. Appearance is disheveled. Speech is Appropriate. Mood is depressed. Affect is flat. Thoughts are linear and logical. No evidence of psychosis. Reviewed daily check in sheet and reports 08/28 for suicidal ideation. Client Response/Progress/Benefit: [] Pt participated at time during group discussion. Daily symptoms tracker indicates no significant concerns. Shared with the group that her grandmother last week which is the reason she missed groups. Talked at length regarding conflicts among her family members during the and of her grandmother. Very focused on how she received the news and angry at her mother. Relationship with her mother is conflicted and pt describes it as toxic. Group provided some suggestions for boundary setting. Pt reports that she is OK with life. Notes significant improvement in mood and decrease in suicidal ideations. She reports that she is at peace with her grandmother's . Her legal issues have been resolved and her BF has gotten a job. Progress noted. Benefited from group feedback. Will continue in IOP to maintain safety and prevent decompensation. Narrative Note: []
--- NOTE | 2019-05-10 10:10 | BH.SGPN.GN ---
Behaviors/Verbalizations/Mental Status: []Client alert and oriented, casually dressed and neatly groomed. Eye contact good. Motor activity appropriate. Speech within normal limits. Affect congruent, mood euthymic. Thoughts linear, logical, no signs of hallucinations or delusions. Client Response/Progress/Benefit: []Client passive participant during group discussion AEB pt providing limited input, however did appear to listen attentively to others comments. Client listened to group brainstorm about potential consequences of not having a support system. Client reported she has shut people out of her life due to past toxic relationships. Client recognizes she has pushed away positive supports because of her negative thoughts that she is a burden. Group identified benefits of social support as gaining a different perspective, provide validation, help recognize warning signs, provide additional insight, and help us see personal strengths. Client was engaged during the group activity and showed increased engagement as shown by client communicating with peers and cooperating throughout. Appeared to benefit from gaining awareness of barriers that keep people from seeking social support. Client to continue IOP to increase consistent application of healthy coping skills, identify and challenge negative thoughts, and prevent decompensation. Narrative Note: []
--- NOTE | 2019-05-10 11:13 | BH.SGPN.GN ---
Behaviors/Verbalizations/Mental Status: []Client alert and oriented, casually dressed and groomed. Eye contact intense. Motor activity appropriate. Speech within normal limits. Affect constricted, mood irritable. Thoughts linear, logical, no signs of hallucinations or delusions. Client Response/Progress/Benefit: []Client responded well to session, contributing occasionally and receptive to suggestions. Client helped the group discuss and identify different social supports as well as the benefits of different supports. The group identified examples of personal, self-help, professional, spiritual, and co-worker social supports. Group identified benefits of each type of social support. Client reported she wants to increase her personal social supports to help client gain self-confidence and reduce negativity. Client identified barriers that could prevent client from improving this support such as: insecurities, social anxiety, lack of transportation. Client reported she plans to practice opposite action to prevent shutting down. Client appeared to benefit from increasing understanding of different types of social support and identifying ways she can improve. Will continue IOP to promote emotional regulation and reduce emotional reactivity to external situations.
--- NOTE | 2019-05-11 10:11 | BH.SGPN.GN ---
Behaviors/Verbalizations/Mental Status: [Client alert and oriented, casually dressed and groomed. Eye contact good. Motor activity restless. Speech within normal limits, at times tangential. Affect congruent, bright, mood euthymic. Thoughts linear, logical, no signs of hallucinations or delusions. ] Client Response/Progress/Benefit: [Client responded well to session, attentive and engaged throughout. Client commented on the quote and stated avoiding anxiety only makes symptoms worse. Client able to provide input to different types of anxiety disorders as well as the difference between ?normal? anxiety and anxiety disorders. Discussed that it becomes a disorder when physical symptoms impact daily functioning. Client helped the group identify examples of the various ways anxiety manifests and symptoms associated with thoughts, physical symptoms, and safety behaviors. Client gained awareness of personal physical symptoms which included: prickly skin, oversensitivity, tense muscles, shaking, and hot and cold flashes. Client also identified safety behaviors she has engaged in that provide short term relief but increase anxiety over time. Client?s safety behaviors included: smoking, relying on her security blanket, isolation, and distractions. Client appeared to benefit from gaining insight to safety behaviors and how anxiety manifests itself, as well as harmful impact of safety behaviors on mental health. Client appears to be progressing with increasing awareness of her symptoms and however continues to struggle with consistently implementing coping skills. Will continue IOP to promote skill application, improve emotion regulation, and prevent decompensation.] Narrative Note: []
--- NOTE | 2019-05-11 11:19 | BH.NOTE ---
BH: Inpatient Note - Notes Behavioral Health Inpatient Note: Per V.O. from Dr. Giordano, the following prescriptions were called into [facility] pharmacy in [place], [place]: fluoxetine (Prozac) 40mg PO daily #30, NO refills lamotrigine (Lamictal) 25mg 2 tabs PO daily #60, NO refills Tung Li, MSN, RN
--- NOTE | 2019-05-12 09:05 | BH.SGPN.GN ---
Behaviors/Verbalizations/Mental Status: []Client alert and oriented, casually dressed and groomed. Eye contact good. Motor activity appropriate. Speech within normal limits. Affect congruent, mood irritable. Thoughts linear, logical, no signs of hallucinations or delusions. Reviewed client?s symptom tracker, no risk for suicidal ideation, plan, or intent as of 05/12/19. Client's daily symptom tracker scores were within client's baseline. Client Response/Progress/Benefit: []Client responded well to session, attentive and offering supportive statements. Client reports feeling more hopeful today on her last day and stated, ?things aren?t hopeless anymore.? Client reflected on her progress while in IOP and identified coping skills that have helped her make progress. Client stated opposite action has been the most helpful coping skill because it helps her make better, healthier choices. Client also has been focusing more on self-care, cleaning, and trying to look at the positives. Client shared she is worried about falling back into old patterns of behavior, especially because she is under house arrest. Client receptive to feedback from group on ways to prevent setbacks and ideas to help prevent boredom at home. Appeared to benefit from reflecting on her gains and connecting with peers. Client to discharge from IOP today as she reports improved mood stability, reduced SI, and increased knowledge of coping skills.
--- NOTE | 2019-05-12 10:10 | BH.SGPN.GN ---
Behaviors/Verbalizations/Mental Status: [] Eye contact is good. Motor activity is appropriate. Appearance is disheveled. Speech is Appropriate. Mood is depressed. Affect is flat. Thoughts are linear and logical. No evidence of psychosis. Client Response/Progress/Benefit: [] Participated at times during discussions providing some insight. Attentive during psychoeducation on differences between fixed and growth mindset. Worked with group to identify how a fixed mindset can impact our mental health which included; not trying new coping skills, believing we can't get better, keeping us stuck, reinforcing fear of failure, decreasing motivation, and avoiding challenges. Group identified the impact that a growth mindset can have on mental health which includes; More likely to embrace challenges, encourages us to try new skills, learn from setbacks rather than ruminate on them, encourages us to believe in ourselves. Pt was able to identify some examples of fixed mindset that she often has. Benefited from group by increasing awareness of how one's mindset impacts our mental health. Narrative Note: []
--- NOTE | 2019-05-12 10:15 | BH.MDN_ITS ---
Multi-Disciplinary Note - Note 30-min Individual Time Started:: 09:45 Date: 05/12/19 Purpose of session/treatment goals addressed:: Purpose of session was to assess pt's current symptoms and stressors. Other topics included: reviewing treatment progress since starting IOP level of care, identifying strateiges to help maintain success, and solidify aftercare plan. Eye Contact:: Good Motor Activity:: Appropriate Appearance:: Casual Speech:: Appropriate Mood:: Euthymic Affect:: Congruent Thoughts:: Linear, Logical, No evidence of hallucinations/delusions noted Staff Interventions:: Therapist used open ended questions to elicit pt's current symptoms and stressors. Therapist inquired pt's thoughts about her treatment progress since starting IOP level of care. Therapist collaborated with pt to identify strategies that can help pt maintain progress after discharge from [facility]. Therapist reviewed pt's aftercare plan details. Client Response:: Pt reported she believes her mental health is much more stable compared to when she first started the program. Pt stated she has improved with decreased depressive symptoms, decrease in suicidal ideations, and increased hopefulness. Pt reported she has increased utilization of healthy coping skills to help manage emotions and mental health symptoms. Pt stated her relationship with her boyfriend has improved because she has decreased her codependency with him by focusing on having time away from him. Pt identified opposite action, listening to music, decreasing laying in bed, having me time, and setting small daily goals as healthy strategies that can help her maintain progress she has made. Pt stated she is disappointed in herself for not putting more effort into her treatment throughout the program, but recognizes should-ing on herself isn't going to make her feel any better. Pt reported she plans to continue seeing her outpatient therapist Kathryn Ledezma. Pt stated she will see her pychiatrist Dr. Sheth for follow up until she is able to switch to a different psychiatrist because she doesn't connect with current psychiatrist. Risks/Concerns:: Pt denies current suicidal ideation, plan or intention to date. Progress Toward Goals/Plan:: Pt has progressed with reporting decrease in both anxious and depressive symptoms. Pt has been able to manage emotions despite experiencing several recent stressors including conflict with mother, grandmother dying, and being put on house arrest. Pt reporting improvement with mood stability and increase in use of healthy skills. Pt progress hindered at times throughout treatment by pt's inconsistent attendance and difficulty applying skills outside treatment environment. Plan is for pt to discharge from [facility] level of care today due to pt reporting decrease in suicidal ideation, improvement with managing emotions, and reaching maximum benefit from program. Time Stopped:: 10:10
--- NOTE | 2019-05-12 10:33 | BH.IGGP_ITS ---
Aftercare Plan - Demographics Treatment End Date:: 05/12/19 Psychiatrist:: Kathryn Giordano Psychiatrist Office #:: [phone] [facility]/IOP Therapist:: Manju Ohara Therapist Phone #:: [phone] - Medications Home Medications: Home Medications Fluoxetine [Prozac] 40 mg PO DAILY 02/21/19 Hydroxyzine Pamoate [Vistaril] 50 mg PO BID PRN PRN 02/25/19 Etonogestrel [Nexplanon] 68 mg SQ X1 04/13/19 Lamotrigine [Lamictal] 50 mg PO DAILY 05/11/19 - Plan Details Progress/Aftercare Plan Details:: Pt's mental health is much more stable compared to when she first started the program. Pt stated she has improved with decreased depressive symptoms, decrease in suicidal ideations, and increased hopefulness. Pt reported she has increased utilization of healthy coping skills to help manage emotions and mental health symptoms. Pt stated her relationship with her boyfriend has improved because she has decreased her codependency with him by focusing on having time away from him. Pt identified opposite action, listening to music, decreasing laying in bed, having me time, and setting small daily goals as healthy strategies that can help her maintain progress she has made. Pt plans to continue outpatient services with already established counselor and psychiatrist at the [facility]. Strategies for Success:: 1. Opposite Action. 2. Listen to music. 3. Limit watching tv and laying in bed. 4. Listening to other's perspective. 5. Challenge negative thought patterns. 6. Set small daily goals to increase motivation. 7. Open communication is sweeney. 8. Remember it's important to have own personal time and space - Appointments Appointments/Referrals to Other Services:: 1. Kathryn Ledezma for counseling on June 28. 2. Dr. Sheth for psychiatry on June 07.
--- NOTE | 2019-05-12 11:13 | BH.SGPN.GN ---
Behaviors/Verbalizations/Mental Status: []Client alert and oriented, casual in appearance. Eye contact good. Motor activity appropriate. Speech within normal limits. Affect congruent, mood euthymic and slightly anxious. Thoughts linear, logical, no signs of hallucinations or delusions. Client Response/Progress/Benefit: []Pt active participant AEB pt providing input during discussion and appeared to listen attentively to peers. Pt appeared to connect with the different relaxation skills discussed. Pt completed worksheet identifying what relaxation skills currently use to manage anxiety and identified what skills she would be willing to try to help manage anxious symptoms. Pt identified she is willing to try the following relaxation skills: meditation, mindfulness, visualization, deep breathing, progressive muscle relaxation, and grounding tools. Pt seemed to benefit from increased awareness of healthy skills to manage anxious symptoms and identifying skills willing to practice outside treatment environment. Pt to continue IOP level of care to improve emotional regulation, increase healthy coping skills, and prevent decompensation. Narrative Note: []
--- NOTE | 2019-05-12 11:13 | BH.SGPN.GN ---
Behaviors/Verbalizations/Mental Status: [Client alert and oriented, casually dressed and groomed. Eye contact good. Motor activity appropriate. Speech within normal limits, more on topic than typical baseline. Affect congruent, mood euthymic. Thoughts linear, logical, no signs of hallucinations or delusions. ] Client Response/Progress/Benefit: [Pt attentive, engaged during discussion and activity. She contributed during discussion on how fixed mindset thoughts experienced in the challenge activity initially impacted ability to complete the task. Pt indicated that frustration when things get difficult can created fixed thoughts and lead her to want to give up. Pt at times struggled with making off topic comments, but overall displaying progress in her ability to provide relevant insight and feedback to group. She did well to apply cognitive restructuring to reframe previously identified fixed thoughts, transforming fixed thought of ?This isn?t going to help? to ?This might help if I give it a chance and try?. Benefitted from discussing benefits of growth mindset and strategies for reframing fixed thoughts. Indicated plans to further develop growth mindset by continue practicing reframing negative fixed thoughts. Pt displaying progress in ability to maintain stability and regulate emotions for an extended period of time, is scheduled to complete IOP program on this date and follow-up with outpatient providers at [facility] for ongoing support.] Narrative Note: []
--- NOTE | 2019-05-12 11:16 | BH.DS ---
Discharge Summary - Demographics Date of Admission:: 02/21/19 Discharge Date: 05/12/19 Presenting Problems at Admission:: Pt presented to [facility] with a long psychiatric history of borderline personality disorder and bipolar disorder (NOS), who was referred to the IOP program after she was in inpatient from February 09 - February 14, 2019. The patient reported at admission that she had been going downhill mentally since October 2018 when she was caught shoplifting. She was arrested at a routine traffic stop in December 2018 because she did not show up for court date. She stateed that this was a very traumatic experience for her and since that time she has felt overwhelmed and trapped. This resulted in her being admitted to the [facility] in January. Pt endorsed anxious symptoms and depressive symptoms at time of admission, but reported the symptoms had improved since discharge from inpatient. Discharge Diagnoses:: F31.9 Bipolar disorder, NOS; Borderline personality disorder Reason for Discharge:: Plan is for pt to discharge from [facility] level of care today due to pt reporting decrease in suicidal ideation, improvement with managing emotions, and reaching maximum benefit from program. - Treatment Progress During Treatment & Response: Pt has demonstrated reduction in anxiety as evidenced by pt's self-report scores on the DSM 5 cross-cutting measure. Pt's discharge DSM5 scores show a 33% reduction in anxious symptoms when compared to her intake score. Pt's DSM 5 scores for depression subscale show a 25% increase in depressive symptoms when compared to intake scores. The increase in depressive symptoms could be attributed to pt's grandmother dying last week. Per pt's report she believes her mental health symptoms have improved compared to when she first started IOP. Pt identifies a positive as feeling like I don't want to kill myself. Pt's attendance during IOP was inconsistent which could contribute to hindrance in progress. Pt's engagement in group sessions often varied AEB pt sometimes contributing to sessions and other times being more passive. Issues Still to be Addressed:: Pt could benefit from continued reinforcement of healthy coping skills, challenging negative and distorted thought patterns, and focus on using machuca mind to make decisions. Pt would benefit from focus on forming and maintaining healthy relationships. Discharge Recommendations/Instructions:: Pt recommended to continue counseling and psychiatry with already established providers with Dr. Sheth for medication management and Kathryn Ledezma for counseling. Discharge Handout: Complete Discharge Handout with client on aftercare options and continuity of care.
== END 2019-05-12 14:00 | disposition home or self-care (01) ==
LOC: BHIOP 09:00
PROVIDERS: Referring Provider Psychiatry & Neurology Psychiatry; Visit Provider Psychiatry & Neurology Psychiatry
DX: F31.9 Bipolar disorder, unspecified (principal); F60.3 Borderline personality disorder
CPT/HCPCS: H0035; 90832; 90853

== ENCOUNTER 2019-05-30 16:26 | Emergency (ER) | payer MEDICARE, SELFPAY ==
[2019-05-30 16:26] VITALS: BP 156/121; PULSE 133; RESP 18; TEMP 36.9; O2SAT 97; BMI 31.6
[2019-05-30] MEDS: HYDROcodone Bitartrate/Apap 5/325 Tablet PO (17:10)
[2019-05-30] MEDS: Ketorolac 60 MG/2 ML Vial IM (17:11)
[2019-05-30] MEDS: Orphenadrine 60 MG/2 ML Ampul IM (17:12)
--- NOTE | 2019-05-30 17:25 | RAD_ITS ---
STUDY: X-RAY - LUMBAR SPINE REASON FOR EXAM: Female, 28 years old. Pain TECHNIQUE: 2 view(s) of the lumbar spine were obtained. COMPARISON: November 09, [address] scan abdomen and pelvis FINDINGS: Normal lumbar lordosis. There is dextroscoliosis stable since prior study centered at the thoracolumbar junction. There is a normal alignment of the vertebrae. There is minimal multilevel endplate spondylosis of the lumbar vertebrae. Normal disc space heights. The soft tissue structures are unremarkable. RAD/Lumbar Spine 2 or 3 Views IMPRESSION: Stable dextroscoliosis. No visualized acute loss of height or alignment. Electronically Signed: Harriet Amaro MD at 17:46 EDT Tel , Service support ,
--- NOTE | 2019-05-30 17:39 | ED.VIS.GEN ---
History of Present Illness Chief Complaint: Back Informant: Patient Onset: Days - 3 Narrative: Increasing lower back pain for 3 days. States been doing a lot of rearranging at home 3 days ago with sharp pain in her lower back, pain down her right leg lateral thigh, states numbness to the lateral thigh. Denies any rectal numbness. Reports has difficulty urinating feels like she needs to push it out. No falls or direct injuries. Reports she is on house arrest currently, denies any IV drug abuse or any recreational drug use. Denies any allergies. Reports receive clearance to come get evaluated today. History of psychiatric disorder. She is on medications for this. Prior similar symptoms: No Past Medical History - Allergies and Home Meds Allergies/Adverse Reactions: Allergies No Known Allergies Allergy (Verified 05/30/19 16:29) Primary Care Physician: Care Physician,No Primary [Primary Care Provider] - Smoking Status: Current every day smoker Review of Systems General: Denies: Chills, Fever, Sweats Eyes: Denies: Visual changes - bilaterally, Diplopia ENT: Denies: Rhinorrhea, Sore throat Cardiovascular: Denies: Chest pain, Palpitations Respiratory: Denies: Dyspnea, Cough, Dyspnea on exertion Gastrointestinal: Denies: Abdominal pain, Nausea, Vomiting, Diarrhea, Melena, Hematochezia Genitourinary: Denies: Dysuria, Hematuria, Frequency Musculoskeletal: Reports: Back pain. Denies: Extremity Pain Skin: Denies: Rash, Wounds Neurological: Denies: Headache, Weakness, Numbness Physical Exam Vital Signs/Narrative: Vital Signs Temp Pulse Resp BP Pulse Ox 05/30/19 16:26 98.5 F 133 H 18 156/121 H 97 Inital Vital Signs reviewed: Yes General: Well nourished, Well developed, - - Uncomfortable. Head: Normocephalic, Atraumatic Eyes: Perrl, EOMI ENT: Moist mucous membranes, No rhinorrhea Neck: Supple, Nontender Cardiovascular: Regular rate, Regular rhythm, No murmurs, Tachycardia Respiratory: No distress, CTA bilaterally, Chest nontender Abdomen: Soft, Nontender, Nondistended, Normal bowel sounds Back: Normal Inspection, - - Tender palpation right paralumbar, straight leg was negative, cross leg test also negative. 3+ bilateral patellar reflexes. Extremities: Nontender, No edema, - Skin: Normal color, No rash Neurological: Alert, Oriented x3, Cranial nerves II-XII grossly intact, Normal Strength, Normal Sensation Psychological: Normal affect, Normal Mood Diagnostic/Tx/Re-eval Clinical Impression(s) from Imaging Studies Lumbar Spine X-Ray 05/30/19 17:25 IMPRESSION: Stable dextroscoliosis. No visualized acute loss of height or alignment. Electronically Signed: Harriet Amaro MD at 17:46 EDT Tel , Service support , - Medical Decision Making Patient uncomfortable, history symptoms concerns for lumbar radiculopathy and sciatica symptoms. She reported trouble with urination, post void residual with 88ml. Denies any saddle anesthesia or stool incontinence. Baseline x-ray obtained shows scoliosis that stable. She was treated for her symptoms Toradol, Norflex, [place]. Reevaluation symptoms much more comfortable. Discussed symptom control at this time follow-up with her PCP for further evaluation and testing as an outpatient. All questions were answered. Oaars report checked. ED Disposition - Plan for ED Patient: Disposition: Home or Assisted Living Diagnosis: Sciatica of right side associated with disorder of lumbar spine Instructions: BACK PAIN w/ SCIATICA Prescriptions: cycloBENZAPRine HCl [Flexeril] 10 mg PO TID PRN #20 tablet PRN Reason: Muscle Spasm Ibuprofen 600 mg PO Q6H PRN PRN #20 tablet PRN Reason: Pain Score 1-10/10 Hydrocodone Bitart/Apap 5-325 [[place] 5MG-325MG] 1 tablet PO Q6H PRN PRN 3 Days #12 tablet PRN Reason: Pain Referrals: Care Physician,No Primary [Primary Care Provider] - Skip Cleveland MD [NON-STAFF] - 3-5 Days
[2019-05-30 19:08] VITALS: RESP 16
== END 2019-05-30 19:09 | disposition home or self-care (01) ==
PROVIDERS: Emergency Provider Emergency Medicine
DX: M54.41 Lumbago with sciatica, right side (principal); F99 Mental disorder, not otherwise specified; F17.200 Nicotine dependence, unspecified, uncomplicated; Z79.899 Other long term (current) drug therapy
CPT/HCPCS: 72100; 96372; 99283

== ENCOUNTER 2019-07-26 09:25 | Emergency (ER) | payer MEDICARE, SELFPAY ==
[2019-07-26 09:26] VITALS: BP 165/89; PULSE 93; RESP 16; TEMP 36.6; O2SAT 97; BMI 34.3
--- NOTE | 2019-07-26 09:35 | ED.VIS.GEN ---
History of Present Illness Chief Complaint: Ear Problem Informant: Patient Onset: Days Context: Gradual Onset Timing: Continuous Current Severity: Moderate Maximum Severity: Moderate Narrative: The patient is a 28-year-old female medical history significant for bipolar disorder and recurrent ear infections who presents to the emergency department with left ear pain. Patient states that yesterday, she was diagnosed with an otitis. She was started on Sudafed and amoxicillin. She states that she feels like she is improving but she just had persistent pain. She denies any fevers. She describes pain that radiates into her teeth. She said no trouble with chewing or swallowing. She denies any neck pain. Prior similar symptoms: No Recent Illness/Hospitalization: No Past Medical History - Allergies and Home Meds Allergies/Adverse Reactions: Allergies No Known Allergies Allergy (Verified 07/26/19 09:26) Primary Care Physician: Skip Cleveland MD [Primary Care Provider] - Prior records reviewed: Yes Past Medical History: - - Bipolar disorder Surgical History: noncontributory Smoking Status: Unknown if ever smoked Review of Systems General: Reports: Fever. Denies: Chills, Sweats Eyes: Denies: Visual changes - bilaterally, Diplopia ENT: Reports: Left ear pain. Denies: Rhinorrhea, Sore throat Cardiovascular: Denies: Chest pain, Palpitations Respiratory: Denies: Dyspnea, Cough, Dyspnea on exertion Gastrointestinal: Denies: Abdominal pain, Nausea, Vomiting, Diarrhea, Melena, Hematochezia Genitourinary: Denies: Dysuria, Hematuria, Frequency Musculoskeletal: Denies: Back pain, Extremity Pain Skin: Denies: Rash, Wounds Neurological: Denies: Headache, Weakness, Numbness Physical Exam Vital Signs/Narrative: Vital Signs Temp Pulse Resp BP Pulse Ox 07/26/19 09:26 97.9 F 93 16 165/89 H 97 Inital Vital Signs reviewed: Yes General: Well nourished, Well developed, No Acute Distress Head: Normocephalic, Atraumatic Eyes: Perrl, EOMI ENT: Moist mucous membranes, No rhinorrhea, - - Left TM is erythematous with distortion of landmarks. No mastoid tenderness. Right TM is normal. Neck: Supple, Nontender Cardiovascular: Regular rate, Regular rhythm, No murmurs Respiratory: No distress, CTA bilaterally, Chest nontender Abdomen: Soft, Nontender, Nondistended, Normal bowel sounds Back: Nontender, Normal Inspection Extremities: Nontender, No edema Skin: Normal color, No rash Neurological: Alert, Oriented x3, Cranial nerves II-XII grossly intact, Normal Strength, Normal Sensation Psychological: Normal affect, Normal Mood Diagnostic/Tx/Re-eval - Medical Decision Making The patient presents with persistent pain from otitis. There was no evidence of perforation. There is no mastoid tenderness. She will be given a short course of analgesics for the next 2 days for pain control. I do not see indication for imaging or IV antibiotics. The patient is comfortable with this plan of care. Impression 1. Acute left otitis media without perforation ED Disposition - Plan for ED Patient: Instructions: OTITIS MEDIA, Abx Tx (Adult) Prescriptions: Hydrocodone Bitart/Apap 5-325 [[place] 5MG-325MG] 1 tab PO Q4H PRN PRN 2 Days #8 tab PRN Reason: Pain Prescription Printed Referrals: Skip Cleveland MD [Primary Care Provider] -
[2019-07-26] MEDS: HYDROcodone Bitartrate/Apap 5/325 Tablet PO (09:56)
== END 2019-07-26 10:28 | disposition home or self-care (01) ==
PROVIDERS: Emergency Provider Emergency Medicine; Family Provider Family Medicine; PCP Family Medicine
DX: H66.92 Otitis media, unspecified, left ear (principal); F31.9 Bipolar disorder, unspecified; Z79.899 Other long term (current) drug therapy
CPT/HCPCS: 99283

== ENCOUNTER 2020-01-14 15:42 | Emergency (ER) | payer MEDICARE, SELFPAY ==
[2020-01-14 15:43] VITALS: BP 113/70; PULSE 98; RESP 16; TEMP 36.6; O2SAT 97; BMI 33.3
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
[2020-01-14] MEDS: HYDROcodone Bitartrate/Apap 5/325 Tablet PO (16:23)
[2020-01-14] MEDS: Naproxen 500 MG Tablet PO (16:23)
== END 2020-01-14 17:27 | disposition home or self-care (01) ==
PROVIDERS: Emergency Provider Emergency Medicine; PCP Family Medicine
DX: S23.41XA Sprain of ribs, initial encounter (principal); X58.XXXA Exposure to other specified factors, initial encounter; Y93.9 Activity, unspecified; Y92.9 Unspecified place or not applicable; Y99.9 Unspecified external cause status; F17.200 Nicotine dependence, unspecified, uncomplicated; Z79.899 Other long term (current) drug therapy
CPT/HCPCS: 71101; 99283

== ENCOUNTER 2020-06-12 12:03 | Observation (INO) | payer MEDICARE, SELFPAY ==
[2020-06-12 12:05] VITALS: BP 146/96; PULSE 60; RESP 16; TEMP 36.4; O2SAT 99; BMI 31.6
--- NOTE | 2020-06-12 12:50 | US_ITS ---
STUDY: ABDOMINAL ULTRASOUND - RIGHT UPPER QUADRANT REASON FOR VISIT: Female, 29 years old RUQ PAIN TECHNIQUE: Ultrasound evaluation of the right upper quadrant was performed with real-time and static garcia-scale imaging. TECHNICAL QUALITY: Adequate. COMPARISON: None. FINDINGS: Liver: The liver measures 15.3 cm. There is normal echogenicity of the liver. The bile ducts are within normal limits. There is hepatic color flow. The direction of portal flow is hepatopetal. There is no demonstrated mass lesion. Gallbladder: There is a distended gallbladder. The gallbladder wall is thickened and measures 3.8 mm. There is a negative sonographic Andujar''s sign. There is no pericholecystic fluid. There are multiple echogenic structures within the gallbladder, consistent with multiple gallstones. Sludge is seen within the gallbladder lumen. Common Bile Duct (C.B.D.): The common bile duct measures 4.0 mm. Pancreas: Normal size of the head, body of the pancreas. The tail portion is obscured due to overlying bowel gas. There is normal echogenicity of the pancreas. There is no demonstrated pancreatic mass or cyst. Right Kidney: Normal size of the right kidney. The right kidney measures 11.6 x 6.3 cm x 5.5 cm. Normal renal cortex. The right cortex measures 1.8 cm. There is no demonstrated renal mass or cyst. There is no right hydronephrosis. US/Gallbladder IMPRESSION: Distended gallbladder with sludge and multiple small gallstones. Thickened gallbladder wall. Electronically Signed: Raymon Leija, at 15:31 EDT , Service support ,
[2020-06-12] MEDS: 0.9% Normal Saline 1,000 ML 1000 ML IV (12:57)
[2020-06-12] MEDS: Morphine 4 MG/ML Syringe IV (12:58)
[2020-06-12] MEDS: Ondansetron 4 MG/2 ML Vial IV (12:58)
[2020-06-12 12:59] LABS: Absolute Lymphocyte Count 1.87 X10^3/uL (0.83-4.51); Absolute Neutrophil Count 8.5 X10^3/uL (2.0-7.7); Basophil# 0.03 X10^3/uL; Basophil% 0.3 % (0-1); Eosinophil# 0.05 X10^3/uL; Eosinophils% 0.4 % (0-5); Hematocrit 48.1 % (37-47); Hemoglobin 15.9 g/dL (12.0-15.0); Lymphocyte # 1.87 X10^3/ul (4.0); Lymphocyte % 16.1 % (19-41); Mean Corp Hgb Conc 33.1 g/dL (32-36); Mean Corpuscular Hgb 31.3 pg (27.0-32.0); Mean Corpuscular Volume 94.7 fL (81-99); Mean Platelet Vol. 10.4 fl (6.2-12.0); Monocyte# 1.15 X10^3/uL; Monocyte% 9.9 % (0-10); NRBC Flagged by Analyzer 0 % (0-5); Neutrophil # 8.47 X10^3/uL (2.7-7.7); Neutrophil % 72.9 % (47-70); Platelet Count 295 K/mm3 (150-450); RBC Distribution Width SD 45.1 fl (35.1-43.9); Red Blood Count 5.08 M/mm3 (4.2-5.4); White Blood Count 11.6 K/mm3 (4.4-11.0)
[2020-06-12 13:07] LABS: ALB/GLOB Ratio 0.9 RATIO (0.9-2.4); AST(SGOT) 201 U/L (15-37); Alanine Aminotransfer ALT/SGPT 109 U/L (13-56); Alkaline Phosphatase 102 U/L (45-117); Anion Gap 6 (5-15); BUN 6 mg/dL (7-18); BUN/Creat Ratio 7.2 RATIO (10-20); Calcium,Total 9.4 mg/dL (8.5-10.1); Chloride 105 mmol/L (98-107); Creatinine, Serum 0.83 mg/dL (0.55-1.02); EST Glomerular Filtration Rate 85 mL/min (>60); Est Glom Filt Rate - Afr Amer 103 mL/min (>60); Estimated Creatinine Clearance 84.81 ml/min; Globulin 4.6 g/dL (2.2-4.2); Glucose 171 mg/dL (74-106); Lipase 163 U/L (73-393); Potassium 3.7 mmol/L (3.5-5.1); Protein, Total 8.6 g/dL (6.4-8.2); Sodium Level 137 mmol/L (136-145)
[2020-06-12 13:14] LABS: Internal QC Validated? YES +Cl - CLEAR BKGD; Pregnancy, Serum, hCG Quali. NEGATIVE Negative
--- NOTE | 2020-06-12 13:57 | ED.VIS.GEN ---
History of Present Illness Chief Complaint: Abd Pain Informant: Patient Narrative: 29 year old female presenting with right upper quadrant pain, nausea, and vomiting. She states that 2 days ago she had drinks with friends. last evening she states that before bed she ate pizza and woke up with excruciating RUQ pain which has been persistent. She denies fever or chills. She has a history of kidney stones and states this feels different. Denies urinary or vaginal complaints. Past Medical History - Allergies and Home Meds Allergies/Adverse Reactions: Allergies No Known Allergies Allergy (Verified 06/12/20 12:04) Primary Care Physician: Skip Cleveland MD [Primary Care Provider] - Prior records reviewed: No Past Medical History: - - Anxiety, borderline personality disorder Surgical History: noncontributory Smoking Status: Current every day smoker Alcohol: Occasional Drugs: None Review of Systems General: Denies: Chills, Fever, Sweats Eyes: Denies: Visual changes - bilaterally, Diplopia ENT: Denies: Rhinorrhea, Sore throat Cardiovascular: Denies: Chest pain, Palpitations Respiratory: Denies: Dyspnea, Cough, Dyspnea on exertion Gastrointestinal: Reports: Abdominal pain, Nausea, Vomiting Genitourinary: Denies: Dysuria, Hematuria, Frequency Musculoskeletal: Denies: Back pain, Extremity Pain Skin: Denies: Rash, Wounds Neurological: Denies: Headache, Weakness, Numbness Psych: Denies: Suicidal thoughts Physical Exam Vital Signs/Narrative: Vital Signs Temp Pulse Resp BP Pulse Ox 06/12/20 12:05 97.5 F L 60 16 146/96 H 99 Inital Vital Signs reviewed: Yes General: Obese, - - appears to be in significant abdominal pain and holding her right upper quadrant Head: Normocephalic, Atraumatic Eyes: Perrl, EOMI ENT: Moist mucous membranes, No rhinorrhea Cardiovascular: Regular rate, Regular rhythm Respiratory: No distress, CTA bilaterally Abdomen: Andujar's sign Back: Nontender, Normal Inspection Extremities: Nontender, No edema Skin: Normal color, No rash. Negative for: Cyanosis, Jaundice Neurological: Alert, Oriented x3 Psychological: Tearful, Agitated Diagnostic/Tx/Re-eval Clinical Impression(s) from Imaging Studies Gallbladder Ultrasound 06/12/20 12:50 IMPRESSION: Distended gallbladder with sludge and multiple small gallstones. Thickened gallbladder wall. Electronically Signed: Raymon Leija, at 15:31 EDT , Service support , Laboratory Data 06/12/20 06/12/20 06/12/20 12:22 12:22 12:22 WBC 11.6 H RBC 5.08 Hgb 15.9 H Hct 48.1 H MCV 94.7 MCH 31.3 MCHC 33.1 RDW Std Deviation 45.1 H RDW Coeff of Ricardo 13.0 Plt Count 295 MPV 10.4 Immature Gran % (Auto) 0.400 Neut % (Auto) 72.9 H Lymph % (Auto) 16.1 L [place] % (Auto) 9.9 Eos % (Auto) 0.4 Baso % (Auto) 0.3 Absolute Neuts (auto) 8.5 H Absolute Lymphs (auto) 1.87 Nucleated RBC % 0 Sodium 137 Potassium 3.7 Chloride 105 Carbon Dioxide 26.0 Anion Gap 6 BUN 6 L Creatinine 0.83 Estim Creat Clear Calc 84.81 Est GFR (MDRD) Af Amer 103 Est GFR (MDRD) Non-Af 85 BUN/Creatinine Ratio 7.2 L Glucose 171 H Calcium 9.4 Total Bilirubin 3.00 H AST 201 H ALT 109 H Alkaline Phosphatase 102 Total Protein 8.6 H Albumin 4.0 Globulin 4.6 H Albumin/Globulin Ratio 0.9 Lipase 163 Serum , Qual NEGATIVE Urine Color Urine Clarity Urine pH Ur Specific [place] Urine Protein Urine Glucose (UA) Urine Ketones Urine Occult Blood Urine Nitrite Urine Bilirubin Urine Urobilinogen Ur Leukocyte Esterase Urine RBC Urine WBC Ur Squamous Epith Cells Urine Bacteria Urine Mucus 06/12/20 13:53 WBC RBC Hgb Hct MCV MCH MCHC RDW Std Deviation RDW Coeff of Ricardo Plt Count MPV Immature Gran % (Auto) Neut % (Auto) Lymph % (Auto) [place] % (Auto) Eos % (Auto) Baso % (Auto) Absolute Neuts (auto) Absolute Lymphs (auto) Nucleated RBC % Sodium Potassium Chloride Carbon Dioxide Anion Gap BUN Creatinine Estim Creat Clear Calc Est GFR (MDRD) Af Amer Est GFR (MDRD) Non-Af BUN/Creatinine Ratio Glucose Calcium Total Bilirubin AST ALT Alkaline Phosphatase Total Protein Albumin Globulin Albumin/Globulin Ratio Lipase Serum , Qual Urine Color Yellow Urine Clarity Sl. Cloudy Urine pH 6.0 Ur Specific [place] 1.015 Urine Protein 30 H Urine Glucose (UA) Normal Urine Ketones Negative Urine Occult Blood 25 H Urine Nitrite Negative Urine Bilirubin 1 H Urine Urobilinogen 8 H Ur Leukocyte Esterase 25 H Urine RBC 0 SEEN Urine WBC 0-5 SEEN Ur Squamous Epith Cells 0-5 SEEN Urine Bacteria 1+ Urine Mucus 0 SEEN - Medical Decision Making -year-old female presenting with right upper quadrant pain. On initial exam she has a Andujar sign. She is given morphine and Zofran and her pain is controlled. Lab work shows a slight leukocytosis. Her LFTs are elevated. Lipase is normal. Right upper quadrant ultrasound shows thickening of the gallbladder as well as stones and sludge. The clinical picture correlates with acute cholecystitis. I discussed the patient's case with Dr. Jackson who will admit the patient and recheck lab work to determine if she needs the OR given that she is completely pain-free at this time. Patient was given a dose of Zosyn prior to admission. Consult for medicine was obtained due to psychiatric medication. Patient admitted in stable condition. Impression: 1. Acute cholecystitis ED Disposition - Plan for ED Patient: Referrals: Skip Cleveland MD [Primary Care Provider] -
[2020-06-12 13:58] LABS: Mucous, Urine 0 SEEN /hpf (<or=2+); Red Blood Cells-Urine 0 SEEN /hpf (0-5)
[2020-06-12 14:01] LABS: Color, Urine Yellow (Yellow); Glucose, Dipstick Normal (Normal); Ketone-Dipstick Negative (Negative); Leukocyte Esterase-Dipstick 25 /ul (Negative); Nitrite-Dipstick Negative (Negative); Occult Blood-Urine 25 /ul (Negative); Protein-Dipstick 30 mg/dl (Negative); Specific Gravity, Urine 1.015 (1.002-1.030); Urine Bilirubin Dipstick 1 mg/dL (Negative); Urine Clarity Sl. Cloudy (Clear); Urine Urobilinogen 8 mg/dl (Normal)
[2020-06-12 14:06] LABS: Bacteria 1+ /hpf (None Seen); Squamous Epithelial Cells - UA 0-5 SEEN /hpf (5-10); White Blood Cells 0-5 SEEN /hpf (0-5)
[2020-06-12] MEDS: 0.9% Normal Saline 1,000 ML 999 ML IV (16:18)
[2020-06-12] MEDS: LORazepam 2 MG/ML Syringe 0.5 MG IV (16:18)
--- NOTE | 2020-06-12 16:19 | PCM.CONS.GEN ---
Problem List (1) Cholecystitis, acute with cholelithiasis Status: Acute Qualifiers: Biliary obstruction: with biliary obstruction Qualified Code(s): K80.01 - Calculus of gallbladder with acute cholecystitis with obstruction Reason for Consult Date of Consultation: 06/12/20 History of Present Illness: 29 year old female presenting with right upper quadrant pain, nausea, and vomiting. She states that 2 days ago she had drinks with friends. last evening she states that before bed she ate pizza and woke up with excruciating RUQ pain which has been persistent. She denies fever or chills. She has a history of kidney stones and states this feels different. Denies urinary or vaginal complaints. Her work-up in the emergency department included gallbladder ultrasound which showed thickened gallbladder wall with sludge and stones no pericholecystic fluid. She also had an elevated total bilirubin and elevated liver function tests. Her alkaline phosphatase was normal. Past Medical History Past Medical History (Chronic Problems): Chronic Problems Frequent headaches (Chronic) Allergies No Known Allergies Allergy (Verified 06/12/20 12:04) Home Medications: Ambulatory Orders Medication Instructions Recorded Fluoxetine [Prozac] 40 mg PO DAILY 02/21/19 Lamotrigine [Lamictal] 50 mg PO DAILY 05/11/19 Clonazepam [Klonopin] 1 mg PO BID PRN 06/12/20 Surgical History: no surgical history Psychiatric History: Anxiety, Bipolar Smoking Status: Current every day smoker Alcohol: Occasional Drugs: None - *Family History Maternal History Items: No pertinent history Review of Systems Constitutional: Reports: Chills, Malaise Cardiovascular: Denies: Chest Pain, Chest Pressure, Chest Tightness, Palpitations Respiratory: Denies: Cough, Hemoptysis, Shortness of breath at rest, Shortness of breath upon exertion, Wheezing Gastrointestinal: Reports: Abdominal Pain, Nausea. Denies: Hematemesis, Hematochezia, Vomiting Genitourinary: Denies: Dysuria, Frequency, Hematuria, Urgency Patient Problems: Active and Suspected Problems Cholecystitis, acute with cholelithiasis (Acute) - Physical Exam Vitals/I&O's: Vital Signs Temp Pulse Resp BP Pulse Ox 97.5 F L 55 L 15 116/68 97 06/12/20 12:05 06/12/20 15:16 06/12/20 15:16 06/12/20 15:16 06/12/20 15:16 Oxygen Delivery Method Room Air Weight: 184 lb 9.6 oz Body Mass Index (BMI) 31.6 Intake and Output for Last 24 Hours 06/10/20 06/11/20 06/12/20 23:59 23:59 23:59 Intake Total 1000 / 1000 Balance 1000 / 1000 General: Alert, Oriented x3, - - Patient is extremely nervous. Lungs: Clear to auscultation Cardiovascular: Regular rate, Regular Rhythm, No murmurs Abdomen: Bowel Sounds Present - Patient has only gotten a little bit of morphine and she has absolutely no tenderness in the right upper quadrant nor does she have any palpable masses. Her abdomen is soft and flaccid, Soft, Non Tender, Non-Distended Extremities: No clubbing, No cyanosis, No edema Skin: No rashes, No breakdown Psych/Mental Status: Anxious, Manic, Restless Laboratory Results 06/12/20 12:22: WBC 11.6 H, RBC 5.08, Hgb 15.9 H, Hct 48.1 H, MCV 94.7, MCH 31.3, MCHC 33.1, RDW Std Deviation 45.1 H, RDW Coeff of Ricardo 13.0, Plt Count 295, MPV 10.4, Immature Gran % (Auto) 0.400, Neut % (Auto) 72.9 H, Lymph % (Auto) 16.1 L, [place] % (Auto) 9.9, Eos % (Auto) 0.4, Baso % (Auto) 0.3, Absolute Neuts (auto) 8.5 H, Absolute Lymphs (auto) 1.87, Nucleated RBC % 0 06/12/20 12:22: Sodium 137, Potassium 3.7, Chloride 105, Carbon Dioxide 26.0, Anion Gap 6, BUN 6 L, Creatinine 0.83, Estim Creat Clear Calc 84.81, Est GFR (MDRD) Af Amer 103, Est GFR (MDRD) Non-Af 85, BUN/Creatinine Ratio 7.2 L, Glucose 171 H, Calcium 9.4, Total Bilirubin 3.00 H, AST 201 H, ALT 109 H, Alkaline Phosphatase 102, Total Protein 8.6 H, Albumin 4.0, Globulin 4.6 H, Albumin/Globulin Ratio 0.9, Lipase 163 10/20/20 12:22: Serum , Qual NEGATIVE 06/12/20 13:53: Urine Color Yellow, Urine Clarity Sl. Cloudy, Urine pH 6.0, Ur Specific [place] 1.015, Urine Protein 30 H, Urine Glucose (UA) Normal, Urine Ketones Negative, Urine Occult Blood 25 H, Urine Nitrite Negative, Urine Bilirubin 1 H, Urine Urobilinogen 8 H, Ur Leukocyte Esterase 25 H, Urine RBC 0 SEEN, Urine WBC 0-5 SEEN, Ur Squamous Epith Cells 0-5 SEEN, Urine Bacteria 1+, Urine Mucus 0 SEEN Current Medications Sodium Chloride () 1,000 mls @ 999 mls/hr IV .Q1H1M ONE Stop: 06/12/20 16:49 Last Admin: 06/12/20 16:18 Dose: 999 mls/hr Documented by: Assessment/Plan All Active Problems Cholecystitis, acute with cholelithiasis (Acute) Go to bring the patient in for observation. And going to repeat labs in the morning she certainly seems like she is having an episode of acute cholecystitis. But I have a feeling abdomen I have a hard time convincing her that she is going to need to have a surgery. I am going to consult medicine to help with her psychotic meds. Office Visits / Consults: [id number] IP Consult L4
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
--- NOTE | 2020-06-12 16:47 | PN_ITS ---
Patient Problems: Active and Suspected Problems Cholecystitis, acute with cholelithiasis (Acute) Vitals/I&O's: Vital Signs Temp Pulse Resp BP Pulse Ox 97.5 F L 55 L 15 116/68 97 06/12/20 12:05 06/12/20 15:16 06/12/20 15:16 06/12/20 15:16 06/12/20 15:16 Oxygen Delivery Method Room Air Weight: 184 lb 9.6 oz Body Mass Index (BMI) 31.6 Intake and Output for Last 24 Hours 06/10/20 06/11/20 06/12/20 23:59 23:59 23:59 Intake Total 1000 / 1000 Balance 1000 / 1000 Laboratory Results 06/12/20 12:22: WBC 11.6 H, RBC 5.08, Hgb 15.9 H, Hct 48.1 H, MCV 94.7, MCH 31.3, MCHC 33.1, RDW Std Deviation 45.1 H, RDW Coeff of Ricardo 13.0, Plt Count 295, MPV 10.4, Immature Gran % (Auto) 0.400, Neut % (Auto) 72.9 H, Lymph % (Auto) 16.1 L, [place] % (Auto) 9.9, Eos % (Auto) 0.4, Baso % (Auto) 0.3, Absolute Neuts (auto) 8.5 H, Absolute Lymphs (auto) 1.87, Nucleated RBC % 0 06/12/20 12:22: Sodium 137, Potassium 3.7, Chloride 105, Carbon Dioxide 26.0, Anion Gap 6, BUN 6 L, Creatinine 0.83, Estim Creat Clear Calc 84.81, Est GFR (MDRD) Af Amer 103, Est GFR (MDRD) Non-Af 85, BUN/Creatinine Ratio 7.2 L, Glucose 171 H, Calcium 9.4, Total Bilirubin 3.00 H, AST 201 H, ALT 109 H, Neisha line Phosphatase 102, Total Protein 8.6 H, Albumin 4.0, Globulin 4.6 H, Albumin/Globulin Ratio 0.9, Lipase 163 06/12/20 12:22: Serum , Qual NEGATIVE 06/12/20 13:53: Urine Color Yellow, Urine Clarity Sl. Cloudy, Urine pH 6.0, Ur Specific [place] 1.015, Urine Protein 30 H, Urine Glucose (UA) Normal, Urine Ketones Negative, Urine Occult Blood 25 H, Urine Nitrite Negative, Urine Bilirubin 1 H, Urine Urobilinogen 8 H, Ur Leukocyte Esterase 25 H, Urine RBC 0 SEEN, Urine WBC 0-5 SEEN, Ur Squamous Epith Cells 0-5 SEEN, Urine Bacteria 1+, Urine Mucus 0 SEEN 06/12/20 16:25: COVID-19 (YONG) Pending Current Medications Sodium Chloride () 1,000 mls @ 999 mls/hr IV .Q1H1M ONE Stop: 06/12/20 16:49 Last Admin: 06/12/20 16:18 Dose: 999 mls/hr Documented by: Sodium Chloride () 1,000 mls @ 125 mls/hr IV .Q8H [facility] Piperacillin Sod/Tazobactam (Sod 3.375 gm/ Sodium Chloride) 50 mls @ 12.5 mls/hr IV Q8 [facility] Pantoprazole Sodium 40 mg/ (Sodium Chloride) 110 mls @ 330 mls/hr IV Q24 [facility] Morphine Sulfate (Morphine 2 Mg/Ml Syringe) 2 - 4 mg IV Q2H PRN PRN PRN Reason: Pain Score 1-10 Ondansetron HCl (Ondansetron 4 Mg/2 Ml Vial) 4 mg IV Q8H PRN PRN PRN Reason: Nausea STROKE Vital Signs/Narrative: Vital Signs Pulse Resp BP Pulse Ox 06/12/20 15:16 55 L 15 116/68 97 Medical Necessity - Tobacco Use Smoking Status: Current every day smoker Assessment/Plan All Active Problems Cholecystitis, acute with cholelithiasis (Acute)
[2020-06-12 17:32] LABS: Amphetamine Urine VISTA NEGATIVE (<1000 ng/mL); Barbiturate Urine VISTA NEGATIVE (< 200 ng/mL); Benzodiazepine Urine VISTA NEGATIVE (< 200 ng/mL); Cocaine Urine VISTA NEGATIVE (< 300 ng/mL); Ecstacy Urine VISTA NEGATIVE (< 500 ng/mL); Methadone Urine VISTA NEGATIVE (< 300 ng/mL); PCP Urine VISTA NEGATIVE (< 25 ng/mL); THC Urine VISTA POSITIVE (< 50 ng/mL); Vista UDS pH Range 6
[2020-06-12 17:41] LABS: Magnesium 2.2 mg/dL (1.6-2.6)
[2020-06-12 17:53] VITALS: BMI 32.0
[2020-06-12 17:55] VITALS: BMI 32.0
[2020-06-12 18:16] LABS: Hemoglobin A1c 5.2 % (3.8-5.6)
[2020-06-12 18:19] VITALS: BP 103/59; PULSE 55; RESP 16; TEMP 37.4; O2SAT 99
[2020-06-12] MEDS: 0.9% Normal Saline 1,000 ML 125 ML IV (18:42)
[2020-06-12] MEDS: oxyCODONE 5 MG Tablet PO (20:36)
[2020-06-12 20:49] VITALS: BP 124/57; PULSE 66; RESP 18; TEMP 37.2; O2SAT 97
[2020-06-12] MEDS: clonazePAM 1 MG Tablet PO (21:34)
[2020-06-13] VITALS (15 sets, daily range): BP systolic 104–129; BP diastolic 55–75; PULSE 49–71; RESP 16–18; TEMP 35.8–37; O2SAT 92–100; BMI 32.0
[2020-06-13] MEDS: LORazepam 0.5 MG Tablet 1 MG PO ×2 (00:53→10:45)
[2020-06-13] MEDS: 0.9% Normal Saline 1,000 ML 125 ML IV ×3 (01:57→16:50)
[2020-06-13 05:46] LABS: Absolute Lymphocyte Count 2.63 X10^3/uL (0.83-4.51); Absolute Neutrophil Count 4.9 X10^3/uL (2.0-7.7); Basophil# 0.03 X10^3/uL; Basophil% 0.3 % (0-1); Eosinophil# 0.13 X10^3/uL; Eosinophils% 1.5 % (0-5); Hematocrit 39.8 % (37-47); Hemoglobin 12.7 g/dL (12.0-15.0); Lymphocyte # 2.63 X10^3/ul (4.0); Lymphocyte % 30.2 % (19-41); Mean Corp Hgb Conc 31.9 g/dL (32-36); Mean Corpuscular Hgb 31.1 pg (27.0-32.0); Mean Corpuscular Volume 97.5 fL (81-99); Mean Platelet Vol. 10.1 fl (6.2-12.0); Monocyte# 0.93 X10^3/uL; Monocyte% 10.7 % (0-10); NRBC Flagged by Analyzer 0 % (0-5); Neutrophil # 4.94 X10^3/uL (2.7-7.7); Neutrophil % 56.8 % (47-70); Platelet Count 224 K/mm3 (150-450); RBC Distribution Width CV 13.1 % (11.6-14.6); RBC Distribution Width SD 46.8 fl (35.1-43.9); Red Blood Count 4.08 M/mm3 (4.2-5.4); White Blood Count 8.7 K/mm3 (4.4-11.0)
--- NOTE | 2020-06-13 06:00 | EKG12_ITS ---
Test Reason : AM EKG Blood Pressure : / mmHG Vent. Rate : 055 BPM Atrial Rate : 055 BPM P-R Int : 150 ms QRS Dur : 088 ms QT Int : 458 ms P-R-T Axes : 016 043 026 degrees QTc Int : 438 ms Sinus bradycardia with occasional Premature ventricular complexes Otherwise normal ECG When compared with ECG of 08-AUG-2014 23:24, Premature ventricular complexes are now Present Confirmed by RA LANCE, CHAVA ([id number]), editor city EDNA MORRIS ([id number]) on 06/13/2020 1:19:07 P M Referred By: ROBYN Confirmed By:FELIX KNAPP MD
[2020-06-13 06:25] LABS: AST(SGOT) 99 U/L (15-37); Alanine Aminotransfer ALT/SGPT 133 U/L (13-56); Albumin, Serum 3.1 g/dL (3.2-5.0); Alkaline Phosphatase 75 U/L (45-117); Amylase 26 U/L (25-115); Anion Gap 7 (5-15); BUN 6 mg/dL (7-18); BUN/Creat Ratio 9.8 RATIO (10-20); Calcium,Total 7.8 mg/dL (8.5-10.1); Chloride 111 mmol/L (98-107); Creatinine, Serum 0.62 mg/dL (0.55-1.02); EST Glomerular Filtration Rate 120 mL/min (>60); Est Glom Filt Rate - Afr Amer 145 mL/min (>60); Estimated Creatinine Clearance 113.53 ml/min; Globulin 3.2 g/dL (2.2-4.2); Glucose 88 mg/dL (74-106); Lipase 69 U/L (73-393); Potassium 3.3 mmol/L (3.5-5.1); Protein, Total 6.3 g/dL (6.4-8.2); Sodium Level 141 mmol/L (136-145)
--- NOTE | 2020-06-13 07:45 | PN_ITS ---
Patient Problems: Active and Suspected Problems Cholecystitis, acute with cholelithiasis (Acute) Subjective: Patient seen and examined. She was admitted with a complaint of abdominal pain and found to have acute cholecystitis. General surgery on board. She has remained hemodynamically stable. Liver enzymes are trending downwards potassium is 3.3 today. Patient still complains of abdominal pain today though she states is getting better. Review of signs otherwise negative. She stated that she had agreed to go for surgery to remove the gallbladder. Labs and vitals reviewed. Vitals/I&O's: Vital Signs Temp Pulse Resp BP Pulse Ox 98.2 F 65 16 112/55 L 99 06/13/20 02:10 06/13/20 02:10 06/13/20 02:10 06/13/20 02:10 06/13/20 02:10 Oxygen Delivery Method Room Air Weight: 186 lb 6.4 oz Body Mass Index (BMI) 32.0 Intake and Output for Last 24 Hours 06/11/20 06/12/20 06/13/20 23:59 23:59 23:59 Intake Total 2378.75 / 2438.75 755.83 / 755.83 Output Total 600 / 600 Balance 2378.75 / 1838.75 155.83 / 155.83 General: Alert, Oriented x3, Cooperative, No apparent distress HEENT: Atraumatic, PERRLA, EOMI, Normocephalic Oral: Dry Mucosa Neck: Supple, No JVD, Negative Carotid Bruits Lungs: Clear to auscultation, Normal air movement, No rhonchi, No wheeze, No rales Cardiovascular: Regular rate, Regular Rhythm, Normal S1, Normal S2, No murmurs Abdomen: Bowel Sounds Present, Soft, Non Tender, Non-Distended, No Hepato- splenomegaly Extremities: No clubbing, No cyanosis, No edema, Capillary Refill Less than 3 Seconds Skin: No rashes, No breakdown Musculoskeletal: No Tenderness to Palpation of Joints or Extremities Lymphatic: No Cervical, Supraclavicular, or Inguinal Adenopathy Neurological: Cranial nerves II-XII grossly intact, Neuro grossly intact, Motor Exam 5/5 strength throughout Psych/Mental Status: Anxious, Alert and oriented to time, place, person, mood and affect Laboratory Results 06/12/20 12:22: WBC 11.6 H, RBC 5.08, Hgb 15.9 H, Hct 48.1 H, MCV 94.7, MCH 31.3, MCHC 33.1, RDW Std Deviation 45.1 H, RDW Coeff of Ricardo 13.0, Plt Count 295, MPV 10.4, Immature Gran % (Auto) 0.400, Neut % (Auto) 72.9 H, Lymph % (Auto) 16.1 L, [place] % (Auto) 9.9, Eos % (Auto) 0.4, Baso % (Auto) 0.3, Absolute Neuts (auto) 8.5 H, Absolute Lymphs (auto) 1.87, Nucleated RBC % 0 06/12/20 12:22: Sodium 137, Potassium 3.7, Chloride 105, Carbon Dioxide 26.0, A nion Gap 6, BUN 6 L, Creatinine 0.83, Estim Creat Clear Calc 84.81, Est GFR (MDRD) Af Amer 103, Est GFR (MDRD) Non-Af 85, BUN/Creatinine Ratio 7.2 L, Glucose 171 H, Calcium 9.4, Total Bilirubin 3.00 H, AST 201 H, ALT 109 H, Alkaline Phosphatase 102, Total Protein 8.6 H, Albumin 4.0, Globulin 4.6 H, Albumin/Globulin Ratio 0.9, Lipase 163 06/12/20 12:22: Serum , Qual NEGATIVE 06/12/20 12:22: Hemoglobin A1c 5.2 06/12/20 13:53: Urine Color Yellow, Urine Clarity Sl. Cloudy, Urine pH 6.0, Ur Specific [place] 1.015, Urine Protein 30 H, Urine Glucose (UA) Normal, Urine Ketones Negative, Urine Occult Blood 25 H, Urine Nitrite Negative, Urine Bilirubin 1 H, Urine Urobilinogen 8 H, Ur Leukocyte Esterase 25 H, Urine RBC 0 SEEN, Urine WBC 0-5 SEEN, Ur Squamous Epith Cells 0-5 SEEN, Urine Bacteria 1+, Urine Mucus 0 SEEN 06/12/20 16:25: COVID-19 (YONG) Not Detected 06/12/20 : Phosphorus 3.0, Magnesium 2.2 06/12/20 : Urine Opiates Screen POSITIVE H, Urine Methadone Screen NEGATIVE, Ur Barbiturates Screen NEGATIVE, Ur Phencyclidine Scrn NEGATIVE, Ur Amphetamines Screen NEGATIVE, U Methamphetamin-MDMA NEGATIVE, U Benzodiazepines Scrn NEGATIVE, Urine Cocaine Screen NEGATIVE, U Cannabinoids Screen POSITIVE H, Ur Drug Screen Comment 06/13/20 05:35: WBC 8.7, RBC 4.08 L, Hgb 12.7, Hct 39.8, MCV 97.5, MCH 31.1, MCHC 31.9 L, RDW Std Deviation 46.8 H, RDW Coeff of Ricardo 13.1, Plt Count 224, MPV 10.1, Immature Gran % (Auto) 0.500, Neut % (Auto) 56.8, Lymph % (Auto) 30.2, [place] % (Auto) 10.7 H, Eos % (Auto) 1.5, Baso % (Auto) 0.3, Absolute Neuts (auto) 4.9, Absolute Lymphs (auto) 2.63, Nucleated RBC % 0 06/13/20 05:35: Sodium 141, Potassium 3.3 L, Chloride 111 H, Carbon Dioxide 23.0, Anion Gap 7, BUN 6 L, Creatinine 0.62, Estim Creat Clear Calc 113.53, Est GFR (MDRD) Af Amer 145, Est GFR (MDRD) Non-Af 120, BUN/Creatinine Ratio 9.8 L, Glucose 88, Calcium 7.8 L, Total Bilirubin 2.10 H, AST 99 H, ALT 133 H, Alkaline Phosphatase 75, Total Protein 6.3 L, Albumin 3.1 L, Globulin 3.2, Albumin/Globulin Ratio 1.0, Amylase 26, Lipase 69 L Diagnostic Data Gallbladder Ultrasound 06/12/20 12:50 IMPRESSION: Distended gallbladder with sludge and multiple small gallstones. Thickened gallbladder wall. Electronically Signed: Raymon Leija, at 15:31 EDT , Service support , Current Medications Clonazepam (Clonazepam 1 Mg Tablet) 1 mg PO BID [facility] Last Admin: 06/12/20 21:34 Dose: 1 mg Documented by: Fluoxetine HCl (Fluoxetine 20 Mg Capsule) 40 mg PO DAILY [facility] Sodium Chloride () 1,000 mls @ 125 mls/hr IV .Q8H [facility] Last Admin: 06/13/20 01:57 Dose: 125 mls/hr Documented by: Piperacillin Sod/Tazobactam (Sod 3.375 gm/ Sodium Chloride) 50 mls @ 12.5 mls/hr IV Q8 [facility] Last Admin: 06/13/20 05:34 Dose: 12.5 mls/hr Documented by: Pantoprazole Sodium 40 mg/ (Sodium Chloride) 110 mls @ 330 mls/hr IV Q24 [facility] Last Infusion: 06/12/20 20:47 Dose: Infused Documented by: Lamotrigine (Lamotrigine 25 Mg Tablet) 50 mg PO DAILY [facility] Lorazepam (Lorazepam 0.5 Mg Tablet) 1 mg PO Q4H PRN PRN PRN Reason: severe anxiety Last Admin: 06/13/20 00:53 Dose: 1 mg Documented by: Morphine Sulfate (Morphine 2 Mg/Ml Syringe) 2 - 4 mg IV Q2H PRN PRN PRN Reason: Pain Score 1-10 Nicotine (Nicotine 21 Mg Patch) 21 mg TRANSDERM. DAILY [facility] Last Admin: 06/12/20 18:43 Dose: 21 mg Documented by: Ondansetron HCl (Ondansetron 4 Mg/2 Ml Vial) 4 mg IV Q8H PRN PRN PRN Reason: Nausea Oxycodone HCl (Oxycodone 5 Mg Tablet) 5 mg PO Q4H PRN PRN PRN Reason: Pain Score 6-10 Last Admin: 06/12/20 20:36 Dose: 5 mg Documented by: Sodium Chloride (0.9% Saline Lock 10 Ml Syringe) 10 - 40 ml IV UD PRN PRN Reason: SALINE FLUSH Medical Necessity - Tobacco Use Smoking Status: Current every day smoker Tobacco Use: Cigarettes Assessment/Plan All Active Problems Cholecystitis, acute with cholelithiasis (Acute) # Acute cholecystitis * liver enzymes are trending down. * on IV zosyn * wbc has trended down to 3.3 * general surgery on board- fpr cholecystectomy today * #Depression and anxiety as well as autism: On Ativan as needed. Also on Klonopin, prozac and lamictal #Polysubstance * abuse: Patient admits to heavy drinking as well as use of marijuana and cigarettes. * Urine tox positive for opiates and cannabinoids. * Counseled to quit. * * #DVT prophylaxis: SCDs OBSV E&M: [id number] Subsequent observation care L2
--- NOTE | 2020-06-13 08:00 | GALL_PTH ---
PATIENT: TODD PACHECO LOC: MS3 U#:[id number] AGE/SX: 29/F ROOM: MS323 RE06/12/[address]: Dr. Teresa Pollack MD : [id number] BED: 1 DIS: 06/13/2020 SPEC #: [id number] RECD: 06/13/20 15:40 STATUS: MIRIAM REQ #: [id number] JARRET: 06/13/20 08:[address]: Niko Jackson DEPT: SURGICAL PATHOLOGY RECD BY: Angle Perales ENTERED: 06/14/20 07:20 SP TYPE: GALLBLADDE OTHR DR: MD Dr. Skip Smith MD Dr. Daniel Peabody, MD Dr. Nana Yaa Koram, MD Tissues: Gallbladder, NOS Procedures: Surgery Specimen Level III Comments: @ Ordering doctor for SUIII edited from to @ radha WHEELER at 06/14/20 1329 @ Submitting doctor edited from to @ radha WHEELER at 06/14/20 1329 HEADER OPERATION: Laparoscopic cholecystectomy PRE-OP DIAGNOSIS: Acute cholecystitis with cholelithiasis TISSUE SUBMITTED: Gallbladder MICROSCOPIC DIAGNOSIS Gallbladder, cholecystectomy: Chronic cholecystitis, cholelithiasis and cholesterolosis. Ectopic pancreatic tissue adjacent to the cystic duct. BENNY:jayne 06/15/20 MICROSCOPIC DESCRIPTION Slides are reviewed. GROSS DESCRIPTION Received is one container labeled with the patient's name and designated gallbladder. The specimen consists of a gallbladder measuring 9.5 cm in length and up to 3.5 cm in diameter. The external surface is pink-jackson, smooth and glistening for the most part. Focally it is granular, hemorrhagic and contains cautery artifact. The gallbladder contains yellow mucoid bile and multiple mulberry yellow stones measuring in aggregate 2 x 1.5 x 0.4 cm and 0.2 to 0.5 cm in greatest dimension. The mucosa also shows several yellowish streaks consistent with cholesterolosis. The mucosa is bile-stained and without any mass lesions. The gallbladder wall measures up to 0.4 cm in thickness. [employer] Teacher sections from the gallbladder and the cystic duct are submitted in one cassette. / BENNY:jayne 06/14/20 TC:3 CPT: 47833
[2020-06-13] MEDS: Morphine 2 MG/ML Syringe IV (08:26)
[2020-06-13] MEDS: Ondansetron 4 MG/2 ML Vial IV (08:29)
[2020-06-13] MEDS: 0.9% Saline Lock 10 ML Syringe IV (08:29)
--- NOTE | 2020-06-13 11:53 | OP.PCM_ITS ---
Problem List (1) Cholecystitis, acute with cholelithiasis Status: Acute Qualifiers: Biliary obstruction: without biliary obstruction Qualified Code(s): K80.00 - Calculus of gallbladder with acute cholecystitis without obstruction Report of Operation Date of Procedure: 06/13/20 Pre-Operative Diagnosis: Acute cholecystitis with cholelithiasis Post-Operative Diagnosis: Same Surgery/Procedure Performed:: Laparoscopic cholecystectomy Type of Anesthesia:: General Anesthesiologist: Ken Richmond Specimen's removed: Gallbladder Estimated Blood Loss (mL): < 25 cc Description of Procedure: Patient was brought into the operating room. Placed in the supine position. Under excellent general trach intubation the abdomen was sterilely prepped and draped in usual fashion. Local was injected infraumbilically. Dissection was carried down to the fascia. The fascia is grasped with a Anderson. Varies needle was placed inside the abdomen. The abdomen was insufflated 15 torr. A 10/12 trocar was placed without difficulty. Patient was placed in the head up and rotated to the left position. A subxiphoid #5 trocar was placed, inferior to this another #5 trocar was placed, laterally a #5 trocar was placed. All these under direct visualization without injury to underlying structures. Fundus of the gallbladder was grasped and retracted in cephalad direction. Significant amount of adhesions were taken down with use of electrocautery good in the stasis was noted. I dissected out the cystic duct. I placed hemoclips proximally and distally and ligated the duct. Identified the cystic artery. Placed hemoclips proximally distally and ligated the artery. Deliver the gallbladder from the gallbladder bed. Identified the posterior cystic branch of the artery and placed a Hemoclip on this as well I had excellent hemostasis on the liver bed. I placed a specimen specimen bag and delivered through the umbilical port. Irrigated the right upper quadrant good mistakes was noted. I remove the trochars under direct visualization good mistakes was noted. Fascia the umbilical port was closed with a [id number] stitch of 0 Vicryl. Skin incisions were closed with subcuticular stitches of 4-0 Monocryl. Steri-Strips were applied. Sterile dressings were applied. The patient tolerated the procedure well. - Admit VTE Documentation VTE Present on Admission: Yes VTE Mechan Device Prophylaxis: SCD's VTE Pharm Prophylaxis ordered?: No Reason prophylaxis not ordered:: Treatment Not Indicated [id number]: [id number] Laparoscopic cholecystectomy
[2020-06-13] MEDS: Bupivacaine Mpf 0.5% 30 ML VIAL (12:45)
--- NOTE | 2020-06-13 12:46 | PCM.DC.GB ---
Discharge Diet: Light diet - advance as tolerated Discharge Activity: May Not Drive - for 2-3 days or while taking narcotic pain medications., - - Do not drive, work heavy equipment or sign legal documents for 24 hours. May shower in (days): 1 - with the bandage in place. Additional Activity Instructions:: Pain medication may cause nausea. You should typically eat light foods as you take your pain medications. Pain medication may also cause constipation. If this is a problem for you, please discuss with your doctor. Call your doctor if your incision/area has: Continuous Slow Oozing, Sudden Increased Bleeding, Increased Pain/ Swelling, Increased Redness, Foul Smelling Discharge Call your doctor if you observe: Fever of 101 or Higher Suture Line Care: Avoid Pulling/Pushing, Avoid Pinching/Bending Additional Dressing/Incision Instructions:: Leave operative bandaids on for 2 days. When you remove dressing, leave Steri-Strips on until your follow-up appointment, or until the Steri-Strips fall off on their own. Allergies/Adverse Reactions: Allergies No Known Allergies Allergy (Verified 06/12/20 12:04) Medications to take at Discharge Fluoxetine [Prozac] 40 mg PO DAILY 02/21/19 Lamotrigine [Lamictal] 50 mg PO DAILY 05/11/19 Clonazepam [Klonopin] 1 mg PO BID PRN 06/12/20 Oxycodone HCl/Acetaminophen [Percocet 5/325] 1 - 2 tablet PO Q4H PRN PRN 6 Days #30 tablet 06/13/20 The following prescriptions were given: Oxycodone HCl/Acetaminophen [Percocet 5/325] 1 - 2 tablet PO Q4H PRN PRN 6 Days #30 tablet PRN Reason: Pain Transmission Status: Sent to [id number] Primary Care Physician: Skip Cleveland MD [Primary Care Provider] - Test Results: Test results from this visit will be discussed in further detail at your follow-up appointment, if applicable. Please Follow Up With: Niko Jackson MD - Please call [phone] to schedule an appointment. When: 7 days after your surgery.
[2020-06-13] MEDS: lamoTRIgine 25 MG Tablet 50 MG PO (15:37)
[2020-06-13] MEDS: FLUoxetine 20 MG Capsule 40 MG PO (15:37)
[2020-06-13] MEDS: clonazePAM 1 MG Tablet PO (15:37)
[2020-06-13] MEDS: oxyCODONE 5 MG Tablet PO (16:34)
== END 2020-06-13 20:00 | disposition home or self-care (01) ==
LOC: ED 12:57 → MS3 17:20
PROVIDERS: Family Medicine; Admitting Provider Surgery; Emergency Provider Student in an Organized Health Care Education/Training Program; PCP Family Medicine; Visit Provider Student in an Organized Health Care Education/Training Program
PROC: (CPT 47562; principal; 2020-06-13 07:40)
DX: K80.12 Calculus of gallbladder with acute and chronic cholecystitis without obstruction (principal); F17.210 Nicotine dependence, cigarettes, uncomplicated; F60.3 Borderline personality disorder; F41.9 Anxiety disorder, unspecified; F32.9 Major depressive disorder, single episode, unspecified; F84.0 Autistic disorder; Z79.899 Other long term (current) drug therapy; F12.10 Cannabis abuse, uncomplicated; R73.9 Hyperglycemia, unspecified
CPT/HCPCS: 00790; 47562; 36415; 76705; 80053; 80307; 81001; 82150; 83036; 83690; 83735; 84100; 84703; 85025; 87635; 88304; 93005; 96361; 96365; 96366; 96367; 96375; 96376; 99218; 99251; 99283; 99406; J7030; J7120; A4216; G0378; G0463; J2405; U0003

== ENCOUNTER 2022-04-08 20:11 | Emergency (ER) | payer MEDICARE, SELFPAY ==
[2022-04-08 20:12] VITALS: BP 126/82; PULSE 93; RESP 16; TEMP 36.6; O2SAT 98; BMI 24.9
[2022-04-08 21:35] LABS: Absolute Lymphocyte Count 2.39 X10^3/uL (0.83-4.51); Absolute Neutrophil Count 8.1 X10^3/uL (2.0-7.7); Basophil# 0.03 X10^3/uL; Basophil% 0.3 % (0-1); Eosinophil# 0.16 X10^3/uL; Eosinophils% 1.4 % (0-5); Hematocrit 39.1 % (37-47); Hemoglobin 12.7 g/dL (12.0-15.0); Lymphocyte # 2.39 X10^3/ul (0.83-4.51); Lymphocyte % 20.3 % (19-41); Mean Corp Hgb Conc 32.5 g/dL (32-36); Mean Corpuscular Hgb 31.4 pg (27.0-32.0); Mean Corpuscular Volume 96.8 fL (81-99); Mean Platelet Vol. 9.9 fl (6.2-12.0); Monocyte# 1.07 X10^3/uL; Monocyte% 9.1 % (0-10); NRBC Flagged by Analyzer 0 % (0-5); Neutrophil # 8.06 X10^3/uL (2.7-7.7); Neutrophil % 68.6 % (47-70); Platelet Count 207 K/mm3 (150-450); RBC Distribution Width CV 12.4 % (11.6-14.6); RBC Distribution Width SD 44.2 fl (35.1-43.9); Red Blood Count 4.04 M/mm3 (4.2-5.4); White Blood Count 11.8 K/mm3 (4.4-11.0)
--- NOTE | 2022-04-08 21:36 | EX.ED.GENINJ ---
HPI History of Present Illness Chief Complaint: Bite Informant: patient Narrative Narrative: Patient is a 31-year-old female with history of anxiety presenting with cat bite to her right thumb. She is right-hand dominant. Patient states her cat was scared and when she was trying to get it out of a crawlspace and the cat bit her. The cat is up-to-date with his vaccines for the patient. Is otherwise been acting normally. She was very anxious about the situation last night so she waited till today to come in. She has associated redness and pain. No associated numbness and tingling. Did not take anything for pain prior to arrival. Tetanus Immunization: >10 years PFSH PFSH Home Medications fluoxetine 20 mg capsule 40 mg PO DAILY mental health 02/21/19 [History Last Taken 06/11/20] lamotrigine 25 mg tablet 50 mg PO DAILY mental health 05/11/19 [History Last Taken 06/11/20] clonazepam 1 mg tablet 1 mg PO BID PRN Anxiety 06/12/20 [History Last Taken 06/11/20] promethazine 25 mg tablet 25 mg PO Q6H PRN nausea and vomiting #10 tabs 06/15/20 [Rx Last Taken Unknown] amoxicillin 875 mg-potassium clavulanate 125 mg tablet 1 tab PO BID #14 tabs 04/08/22 [Rx Last Taken Unknown] ibuprofen 600 mg tablet 600 mg PO Q6H PRN PRN Pain Score 1-10/10 #20 tabs 04/08/22 [Rx Last Taken Unknown] Allergy/AdvReac Type Severity Reaction Status Date / Time No Known Allergies Allergy Verified 04/08/22 20:13 Social History Smoking Status: Current every day smoker tobacco type: cigarettes ROS ROS ED Constitutional Constitutional ED: Denies chills or fever(s) Eyes Eyes: Denies blurry vision or change in vision ENT ENT ED: Denies rhinorrhea Cardiovascular Cardiovascular: Denies chest pain Respiratory/Chest Respiratory/Chest: Denies cough Gastrointestinal Gastrointestinal: Denies abdominal pain, nausea or vomiting Musculoskeletal Musculoskeletal: Reports other Details: right thumb pain ; Denies arthralgias Integumentary Reports Abrasions and rash Neurologic Neurologic: Denies headache(s), paresthesias or weakness Psychiatric Psychiatric: Reports anxiety Hematologic/Lymphatic Hematologic/Lymphatic: Denies easy bleeding or easy bruising EXAM Physical Exam Const Vital Signs: 04/08/22 20:12 Temperature 97.8 F Temperature Source Temporal Pulse Rate 93 Respiratory Rate 16 Blood Pressure 126/82 H Blood Pressure Mean 96 Pulse Ox 98 Oxygen Delivery Method Room Air Positive well nourished and well developed General Appearance ED: well developed and NAD HEENT atraumatic Eyes PERRL and EOMs intact bilaterally Neck full ROM Chest Wall inspection of chest normal Resp normal respiratory effort and clear to auscultation bilaterally Cardio regular rhythm and no murmurs Rate: regular rate GI normal to inspection, nondistended, normoactive bowel sounds Extremity full ROM Extremity Narrative: Edema and tenderness to palpation of the proximal right thumb. Range of motion is preserved. General Extremety ED: Yes edema and tenderness General Extremity: edema Neuro oriented x3 and moves all extremities Psych mental status grossly normal Skin Skin Narrative: Puncture wounds to the palmar and dorsal aspect of the right thumb. No foreign body palpated. There is erythema extending approximately to the level of the wrist with associated warmth. No crepitus appreciated. MDM MDM MDM Narrative Medical decision making narrative: Patient evaluated for right thumb redness and swelling after cat bite yesterday. It was from her own cat. Patient does not have lymphangitic streaking but she does have associated cellulitis. X-ray obtained to rule out foreign body. This is normal on my interpretation. No free air is appreciated. Patient is not have any signs of an obvious joint infection. She does have a mild leukocytosis of 11.8 which is near her baseline. Her CRP is minimally elevated 11.8. Remainder the work-up is unremarkable. Patient is given a dose of IV antibiotics in the emergency room and started on a course of Augmentin. She is also given a prescription for Motrin. Patient had symptomatic improvement in the ER after receiving IV antibiotics and Motrin. An Alvin wrap was placed over her hand to limit mobilization and for comfort. She is given orthopedics for outpatient follow-up. Counseled on strict return precautions and that these type of wounds have a high incidence of progression to severe infection. Lab Data Attestation: I reviewed the patient's lab results. Labs: Laboratory Results - last 24 hr 04/08/22 04/08/22 21:25 21:25 WBC 11.8 H RBC 4.04 L Hgb 12.7 Hct 39.1 MCV 96.8 MCH 31.4 MCHC 32.5 RDW Std Deviation 44.2 H RDW Coeff of Ricardo 12.4 Plt Count 207 MPV 9.9 Immature Gran % (Auto) 0.300 Neut % (Auto) 68.6 Lymph % (Auto) 20.3 [place] % (Auto) 9.1 Eos % (Auto) 1.4 Baso % (Auto) 0.3 Absolute Neuts (auto) 8.1 H Absolute Lymphs (auto) 2.39 Nucleated RBC % 0 Sodium 139 Potassium 4.4 Chloride 108 H Carbon Dioxide 28.0 Anion Gap 3 L BUN 10 Creatinine 0.68 Estim Creat Clear Calc 101.61 Est GFR (MDRD) Af Amer 129 Est GFR (MDRD) Non-Af 106 BUN/Creatinine Ratio 14.8 Glucose 84 Calcium 8.9 C-React Prot Ext Range 11.80 H Radiography Diagnostic Testing: Clinical Impression(s) from Imaging Studies Hand X-Ray 04/08/22 21:40 IMPRESSION: Normal x-ray examination of the hand. Electronically Signed: Marques Angeles DO at 23:50 EDT , Discharge Plan Triage Chief Complaint: Bite ED Provider: Jennifer Elder Dx/Rx/DC Orders Clinical Impression: Cat bite of right thumb with infection, Cellulitis of right thumb, Need for eiqmikfsrq-jfhyvxl-vgydfrynj (Tdap) vaccine Prescriptions: New amoxicillin-pot clavulanate 875-125 mg tablet 1 tab PO BID Qty: 14 0RF ibuprofen 600 mg tablet 600 mg PO Q6H PRN PRN (Reason: Pain Score 1-10/10) Qty: 20 0RF No Action fluoxetine 20 MG capsule 40 mg PO DAILY clonazepam 1 MG tablet 1 mg PO BID PRN (Reason: Anxiety) lamotrigine 25 MG tablet 50 mg PO DAILY promethazine 25 mg tablet 25 mg PO Q6H PRN (Reason: nausea and vomiting) Qty: 10 0RF Primary Care Provider: Skip Cleveland Referrals: Skip Cleveland MD [Primary Care Provider] - Thomas Holguin DO [Med Staff - Active Staff] - 1-2 Days if not improving Disposition Disposition: Home, Self Care Discharge Date/Time: 04/08/22 23:17
--- NOTE | 2022-04-08 21:40 | RAD_ITS ---
STUDY: X-RAY - RIGHT HAND REASON FOR EXAM: Female, 31 years old. cat bite TECHNIQUE: 3 view(s) of the hand. COMPARISON: None. FINDINGS: Normal radiocarpal articulation. Normal distal radioulnar joint. Normal visualized carpal bones. Normal carpal articulations Normal carpometacarpal articulation of the thumb. Normal second through fifth carpometacarpal joints. Normal metacarpi. Normal metacarpophalangeal joint of the thumb. Normal interphalangeal joint of the thumb. Normal proximal and distal phalanges of the thumb. Normal metacarpophalangeal joints of the second through fifth fingers. Normal proximal and distal interphalangeal joints of the second through fifth fingers. Normal phalanges of the second through fifth fingers. The soft tissue structures are unremarkable. RAD/Hand Min 3 Views IMPRESSION: Normal x-ray examination of the hand. Electronically Signed: Marques Angeles DO at 23:50 EDT ,
[2022-04-08] MEDS: Diphth,Pertuss(Acell),Tet Vac 0.5 ML Vial IM (21:46)
[2022-04-08] MEDS: Ibuprofen 600 MG Tablet PO (21:47)
[2022-04-08 21:51] LABS: Anion Gap 3 (5-15); BUN 10 mg/dL (7-18); BUN/Creat Ratio 14.8 RATIO (10-20); Calcium,Total 8.9 mg/dL (8.5-10.1); Chloride 108 mmol/L (98-107); Creatinine, Serum 0.68 mg/dL (0.55-1.02); EST Glomerular Filtration Rate 106 mL/min (>60); Est Glom Filt Rate - Afr Amer 129 mL/min (>60); Estimated Creatinine Clearance 101.61 ml/min; Glucose 84 mg/dL (74-106); Potassium 4.4 mmol/L (3.5-5.1); Sodium Level 139 mmol/L (136-145)
== END 2022-04-08 23:17 | disposition home or self-care (01) ==
PROVIDERS: Emergency Provider Emergency Medicine; PCP Family Medicine; Visit Provider Emergency Medicine
DX: S61.431A Puncture wound without foreign body of right hand, initial encounter (principal); S61.031A Puncture wound without foreign body of right thumb without damage to nail, initial encounter; L03.011 Cellulitis of right finger; R79.82 Elevated C-reactive protein (CRP); W55.01XA Bitten by cat, initial encounter; Z23 Encounter for immunization; F41.9 Anxiety disorder, unspecified; F17.210 Nicotine dependence, cigarettes, uncomplicated; Z79.899 Other long term (current) drug therapy
CPT/HCPCS: 73130; 80048; 85025; 86140; 90715; 96365; 99285; A4216; J0295

== ENCOUNTER 2023-03-05 07:00 | Day surgery (SDC) | payer MEDICARE, SELFPAY ==
--- NOTE | 2023-02-16 14:38 | PCM.HP.BLA ---
History and Physical Date of Admission: 03/05/23 HPI: The patient is a 32 year old female presenting for pre-operative visit. She is scheduled for laparoscopic bilateral salpingectomy, for sterilization on 03/05/23. Procedure discussed along with risks, benefits and complications. Other alternatives discussed for management. Consent form signed? Yes. ? ? PAST MEDICAL HISTORY PAST MEDICAL HISTORY Diagnosis Date ? Anxiety ? ? Borderline personality disorder (HCC) ? ? Dr. Sheth ? Granuloma annulare ? ? Greater tuberosity of humerus fracture 01/24/2013 ? History of marijuana use ? ? Sober since 03/2019 ? Kidney stones 09/2018 ? 4mm stone left ureter ? Major depression ? ? Nexplanon in place ? ? Dr. Samuel ? Oppositional defiant disorder of childhood or adolescence ? ? Other specified pervasive developmental disorders, current or active state ? ? aspergers ? Polysubstance abuse (HCC) ? ? heroin, fentanyl. Sober since 06/2018 ? PTSD (post-traumatic stress disorder) ? ? Rheumatoid arthritis(714.0) ? ? juvenile RA age 6 ? RLS (restless legs syndrome) ? ? secondary to abilify ? Tobacco use ? ? Unspecified pervasive developmental disorder, residual state ? ? ? PAST SURGICAL HISTORY PAST SURGICAL HISTORY Procedure Laterality Date ? NEXPLANON INSERTION ? 02/15/2013, 12/2016 ? Removed and inserted again ? ? ? CURRENT MEDICATIONS Current Outpatient Medications Medication Sig Dispense Refill ? rOPINIRole (REQUIP) 0.25 mg tablet Take 1 tablet by mouth daily at bedtime. 30 tablet 2 ? albuterol HFA (VENTOLIN HFA) 90 mcg/actuation inhaler Inhale 2 Puffs as instructed every 4 hours as needed for Wheezing/Shortness of Breath. 1 Inhaler 1 ? fluticasone (FLONASE) 50 mcg/actuation nasal spray Use 2 Sprays in each nostril once daily. Rinse mouth after use. 1 Bottle 1 ? lamoTRIgine (LAMICTAL) 25 mg tablet Take 50 mg by mouth once daily. ? ? ? FLUoxetine HCl (PROZAC) 40 mg capsule TAKE 1 CAPSULE BY MOUTH ONCE DAILY FOR DEPRESSION ANXIETY ? 0 ? clonazePAM (KLONOPIN) 1 mg tablet TWICE DAILY NEEDED PRN For Anxiety ? ? ? No current facility-administered medications for this visit. ? ? ALLERGIES: Environmental [Other] ? PERSONAL HISTORY: SOCIAL HISTORY Social History ? Tobacco Use ? Smoking status: Every Day ? ? Packs/day: 0.50 ? ? Years: 11.00 ? ? Pack years: 5.50 ? ? Types: Cigarettes ? Smokeless tobacco: Never ? Tobacco comments: ? ? Also vaping Vaping Use ? Vaping Use: current everyday user ? Substances: Nicotine, THC, Flavoring Substance Use Topics ? Alcohol use: Yes ? ? Comment: rarely ? Drug use: Yes ? ? Types: Marijuana ? ? Comment: occasional THC ? FAMILY HISTORY: FAMILY HISTORY FAMILY HISTORY Problem Relation Age of Onset ? Asthma Mother ? ? Heart Mother ? ? ablation ? Hypertension Mother ? ? Stroke Paternal Grandmother ? ? Thyroid Maternal Grandmother ? ? Cancer Maternal Grandmother ? ? Lung Cancer/Brain Cancer ? Diabetes Father ? ? Cancer Father ? ? lung cancer ? No Known Problems Brother ? ? ? REVIEW OF SYMPTOMS: GENERAL: denies fevers or chills ENDOCRINOLOGY: has not been on steroids Cardiology : denies palpitations or chest pain Respiratory: denies SOB or cough Hematology: denies history of prolonged bleeding or easy bruising or VTE Allergy: Denies history of personal or family history of allergy to anesthesia ? PHYSICAL EXAMINATION: ? VITALS: Last menstrual period 12/26/2022. ? GENERAL: The patient is well nourished, well hydrated in no acute distress. , The patient is oriented to time, place, and person. NECK: Supple. No lynphadenopathy, normal thyroid, no thyromegaly. LUNGS: Clear to auscultation bilaterally. no wheezes, rhonchi or rales HEART: Regular rate and rhythm, Normal heart sounds, and No murmurs or gallops ? IMPRESSION: sterilization request ? PLAN: The risks/benefits/alternatives and personal involved for the planned laparoscopic bilateral salpingectomy were reviewed with the patient. Her questions were answered to her satisfaction and she desires to proceed. Consent was signed. I reviewed with her postop instructions and expectations. ? ? I have reviewed and updated past medical and surgical history, medications and allergies Assessment & Plan Assessment/Plan (1) Sterilization:
[2023-03-05] VITALS (12 sets, daily range): BP systolic 82–129; BP diastolic 44–84; PULSE 44–69; RESP 14–17; TEMP 36.1–36.7; O2SAT 92–100; BMI 26.4
--- NOTE | 2023-03-05 | FALS_PTH ---
PATIENT: TODD PACHECO [place] [facility] [place][id number] AGE/SX: 32/F ROOM: RE03/05/[address]: Dr. Vanessa Correa MD : [id number] BED: DIS: 03/05/2023 SPEC #: [id number] RECD: 03/05/23 13:17 STATUS: MIRIAM REPat #: [id number] JARRET: 03/05/23 00:[address]: Vanessa Correa DEPT: SURGICAL PATHOLOGY RECD BY: Albino Truong ENTERED: 03/05/23 13:17 SP TYPE: FALL TUBES OTHR DR: Dr. Skip Cleveland MD Tissues: Fallopian tube Procedures: Surgery Specimen Level II HEADER OPERATION: Laparoscopic, salpingectomy PRE-OP DIAGNOSIS: Sterilization TISSUE SUBMITTED: Bilateral fallopian tubes MICROSCOPIC DIAGNOSIS Bilateral fallopian tubes, salpingectomy: Bilateral fallopian tubes, no pathologic diagnosis. SJ: 03/06/2023 MICROSCOPIC DESCRIPTION Slides are reviewed. GROSS DESCRIPTION Received in fixative is one container labeled with the patient's name and designated bilateral fallopian tubes. Received in fixative is one container labeled with the patient's name and designated bilateral fallopian tubes. The specimen consists of bilateral fallopian tubes including fimbrial ends each measuring 5 cm in length and 0.8 cm in diameter. The fallopian tubes are not identified as right or left. Sections reveal unremarkable cut surfaces. Wall Man sections are submitted in two cassettes with each cassette containing one fallopian tube. / BENNY:ABHISHEK 03/05/23 TC:4 CPT: 56158 x2
[2023-03-05 07:29] LABS: Internal QC Validated? YES +Cl - CLEAR BKGD; Pregnancy, Urine Negative Negative
[2023-03-05] MEDS: Lactated Ringers 1,000 ML 15 ML IV (07:30)
[2023-03-05 07:45] LABS: Hematocrit 41.1 % (37-47); Hemoglobin 13.7 g/dL (12.0-15.0); Mean Corp Hgb Conc 33.3 g/dL (32-36); Mean Corpuscular Hgb 32.3 pg (27.0-32.0); Mean Corpuscular Volume 96.9 fL (81-99); Platelet Count 232 K/mm3 (150-450); RBC Distribution Width CV 12.3 % (11.6-14.6); RBC Distribution Width SD 43.7 fl (35.1-43.9); Red Blood Count 4.24 M/mm3 (4.2-5.4); White Blood Count 9.5 K/mm3 (4.4-11.0)
[2023-03-05] MEDS: Acetaminophen 500 MG Tablet 1000 MG PO (07:46)
[2023-03-05] MEDS: Ketorolac 30 MG/ML Syringe IV (07:47)
[2023-03-05 07:55] LABS: International Normalized Ratio 1.1; Prothrombin Time (Protime)PT. 14.5 SECONDS (11.7-14.9)
[2023-03-05 08:05] LABS: AST(SGOT) 20 U/L (15-37); Alanine Aminotransfer ALT/SGPT 24 U/L (13-56); Albumin, Serum 3.9 g/dL (3.2-5.0); Alkaline Phosphatase 55 U/L (45-117); Bilirubin, Direct 0.21 mg/dL (0.00-0.30); Globulin 3.9 g/dL (2.2-4.2); Protein, Total 7.8 g/dL (6.4-8.2)
--- NOTE | 2023-03-05 09:37 | PCM.DC ---
Discharge Instructions Diet Discharge Diet: No restrictions (Increase fluid intake for the next 48 hours.) Activity Additional Activity Instructions:: Ambulate often the next week after surgery. Nothing in the vagina for 5 days. Dressing / Incision Call your doctor if your incision/area has: Continuous Slow Oozing, Sudden Increased Bleeding, Increased Pain/ Swelling, Increased Redness and Foul Smelling Discharge Call your doctor if you observe: Fever of 101 or Higher Cleanse incision/area with: Soap & Water (Your incisions can get wet, they have skin glue on. Leave the glue on for at least 10 days) Follow Up Care Please Follow Up With: Vanessa Correa MD When: Call [phone] for follow-up appointment as needed or send a [employer] message for nonurgent questions Test Results: Test results from this visit will be discussed in further detail at your follow-up appointment, if applicable. Discharge Plan Admission Primary Reason for Your Visit: Tubal sterilization Attending Provider: Vanessa Correa Primary Care Provider: Skip Cleveland Discharge Orders/Prescriptions Prescriptions: Continued fluoxetine 20 MG capsule 40 mg PO DAILY clonazepam 1 MG tablet 1 mg PO BID PRN (Reason: Anxiety) ibuprofen 600 mg tablet 600 mg PO Q6H PRN PRN (Reason: Pain Score 1-10/10) Qty: 20 0RF cyclobenzaprine 10 mg tablet 10 mg PO Q12H PRN (Reason: muscle spasm) albuterol sulfate 90 mcg/actuation aerosol powdr breath activated 1 inh inhalation Q6H PRN (Reason: shortness of breath) Suboxone film 1 mg PO DAILY Patient Comments: HAS 8MG TAB AND CUTS TAB TO TAKE 1 MG DAILY lamotrigine 25 MG tablet 50 mg PO DAILY promethazine 25 mg tablet 25 mg PO Q6H PRN (Reason: nausea and vomiting) Qty: 10 0RF Referrals / Follow Up: Skip Cleveland MD [Primary Care Provider] - Disposition Disposition (needs filled in before D/C Order can be placed): Home, Self Care
[2023-03-05] MEDS: Lubricating Jelly 60 GM Tube 30 GM (09:44)
[2023-03-05] MEDS: Bupivacaine 0.5% PF 10 ML VIAL (09:46)
--- NOTE | 2023-03-05 10:06 | PCM.OPRPT ---
Problems Associated Problem List Diagnoses (1) Sterilization: Report of Operation Date of Procedure: 03/05/23 Pre-Operative Diagnosis: Sterilization request Post-Operative Diagnosis: Same Surgery/Procedure Performed:: Laparoscopic bilateral salpingectomy Description of Surgical Findings:: normal uterus, tubes and ovaries Surgeon: Vanessa Correa merit system director: None Type of Anesthesia: General Anesthesiologist: Onel Hanley Special Medications: none Specimen's removed: bilateral fallopian tubes Drains: none Estimated Blood Loss (mL): 5 Fluids Replaced: 1000 Description of Procedure: The patient was taken to the operating room where she was prepped and draped in the dorsolithotomy position. A weighted speculum was placed in the vagina and the anterior lip of the cervix was grasped with a tenaculum. The Lady uterine manipulator was placed and the remainder of the instruments were removed from the vagina. Attention was turned to the abdomen. All port sites were infiltrated with 0.5% Marcaine before skin incisions were made. A 5 mm intraumbilical incision was made. The anterior abdominal wall was tented up with 2 towel clamps while a 5 mm blade less trocar and sleeve were directly inserted. Intraperitoneal placement was confirmed with the laparoscope. The pneumoperitoneum was created and the underlying abdominal contents were intact. The patient was placed in Trendelenburg. Right and left lower quadrant ports were placed under direct visualization lateral to the inferior epigastric vessels. The bowel was swept away and the above findings were noted. The Enseal device was used to clamp seal and transect the antimesenteric portions of the right tube to the cornual insertion of the uterus. The tube was amputated from the uterus and the pedicles were all confirmed to be hemostatic. The same procedure was performed on the contralateral side. The specimens were brought out through a 5 mm port. The pedicles were again examined and found to be hemostatic. The lateral ports were removed under direct visualization and no active bleeding was noted. The pneumoperitoneum was released. The skin incisions were closed with Monocryl suture in a subcuticular fashion and skin glue by me. The vaginal instruments were removed and the vaginal sweep was completed by me. The procedure was performed by me with assistance other than as dictated above. All sponge and needle counts were correct and the patient was taken to the recovery room in stable condition. Grafts/Implants Used: none Procedure Start Time: 09:44 Procedure Stop Time: 10:02 Complications none Admit VTE Documentation VTE Present on Admission: No VTE Mechan Device Prophylaxis: SCD's VTE Pharm Prophylaxis ordered?: No
[2023-03-05] MEDS: Lactated Ringers 1,000 ML 75 ML IV ×2 (10:37→12:05)
== END 2023-03-05 13:54 | disposition home or self-care (01) ==
LOC: SDC 07:02 → AC 07:04
PROVIDERS: Anesthesiology; PCP Family Medicine; Referring Provider Obstetrics & Gynecology; Visit Provider Obstetrics & Gynecology
PROC: (CPT 58661; principal; 2023-03-05 08:10)
DX: Z30.2 Encounter for sterilization (principal); F60.3 Borderline personality disorder; F43.10 Post-traumatic stress disorder, unspecified; F17.210 Nicotine dependence, cigarettes, uncomplicated; Z79.899 Other long term (current) drug therapy
CPT/HCPCS: 58661; 00840; 80076; 81025; 85027; 85610; 85730; 88302; J7120; C1760; J2405

== ENCOUNTER 2023-03-19 18:12 | Emergency (ER) | payer MEDICARE, SELFPAY ==
[2023-03-19 18:13] VITALS: BP 140/108; PULSE 105; RESP 18; TEMP 36.9; O2SAT 99; BMI 26.8
--- NOTE | 2023-03-19 18:19 | ED.RN ---
HRO UPDATED ON PT REQUESTING TO TALK TO HIM.
[2023-03-19 19:18] VITALS: BP 112/75; PULSE 84; RESP 16; O2SAT 96
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
[2023-03-19] MEDS: Ibuprofen 600 MG Tablet PO (19:57)
== END 2023-03-19 20:05 | disposition home or self-care (01) ==
PROVIDERS: Emergency Provider Emergency Medicine; PCP Family Medicine; Visit Provider Emergency Medicine
DX: S06.0X0A Concussion without loss of consciousness, initial encounter (principal); E11.9 Type 2 diabetes mellitus without complications; S10.93XA Contusion of unspecified part of neck, initial encounter; T74.31XA Adult psychological abuse, confirmed, initial encounter; Y04.8XXA Assault by other bodily force, initial encounter; F17.210 Nicotine dependence, cigarettes, uncomplicated; Z79.899 Other long term (current) drug therapy; F17.290 Nicotine dependence, other tobacco product, uncomplicated
CPT/HCPCS: 99282

== ENCOUNTER 2023-11-06 16:28 | Emergency (ER) | payer MEDICARE, SELFPAY ==
[2023-11-06 16:29] VITALS: BP 104/46; PULSE 70; RESP 17; TEMP 36.4; O2SAT 97; BMI 27.4
== END 2023-11-06 16:34 | disposition left against medical advice (07) ==
LOC: ED 16:52
PROVIDERS: PCP Family Medicine
DX: M79.652 Pain in left thigh (principal)

== ENCOUNTER → 2025-03-29 | Outpatient (CLI) | payer MEDICARE, SELFPAY ==
[2025-03-29 15:52] LABS: Hematocrit 41.4 % (37-47); Hemoglobin 13.6 g/dL (12.0-15.0); Immature Granulocytes Count 0.040 X10^3/uL (0.0-0.0); Mean Corp Hgb Conc 32.9 g/dL (32-36); Mean Corpuscular Volume 100.0 fL (81-99); Mean Platelet Vol. 10.4 fl (6.2-12.0); NRBC Flagged by Analyzer 0 % (0-5); Platelet Count 278 K/mm3 (150-450); RBC Distribution Width CV 11.9 % (11.6-14.6); RBC Distribution Width SD 44.1 fl (35.1-43.9); Red Blood Count 4.14 M/mm3 (4.2-5.4); White Blood Count 8.4 K/mm3 (4.4-11.0)
[2025-03-29 16:18] LABS: AST(SGOT) 14 U/L (<=31); Alanine Aminotransfer ALT/SGPT 11 U/L (<=34); Albumin, Serum 4.7 g/dL (3.5-5.0); Alkaline Phosphatase 42 U/L (35-104); Anion Gap 12 (5-15); BUN 12 mg/dL (4-19); BUN/Creat Ratio 14.8 RATIO (10-20); Calcium,Total 9.3 mg/dL (7.6-11.0); Carbon Dioxide 22.4 mmol/L (21.0-32.0); Chloride 101 mmol/L (98-108); Globulin 3.2 g/dL (2.2-4.2); Glucose 105 mg/dL (70-99); Potassium 5.0 mmol/L (3.3-5.1); Vitamin B12 272 pg/mL (180-914); Vitamin D,25 Hydroxy 27.5 ng/mL (30-100)
[2025-03-29 16:20] LABS: CRP < 3.00 mg/L (0.0-3.0)
[2025-03-31 14:08] LABS: ANTINUCLEAR ANTIBODIES DIRECT Negative (Negative); Anti-Chromatin <0.2 AI (0.0-0.9); Anti-Jo <0.2 AI (0.0-0.9); Anti-dsDNA Ab <1 IU/mL (0-9); SJOGREN'S Anti-SS-A test < 0.2 AI (0.0-0.9); SJOGREN'S Anti-SS-B test < 0.2 AI (0.0-0.9)
== END | disposition home or self-care (01) ==
LOC: BIMLAB 11:44
PROVIDERS: PCP Internal Medicine; Visit Provider Internal Medicine
DX: G89.29 Other chronic pain (principal); R22.0 Localized swelling, mass and lump, head; R20.2 Paresthesia of skin; E55.9 Vitamin D deficiency, unspecified
CPT/HCPCS: 36415; 80053; 82306; 82607; 85025; 85652; 86038; 86140; 86200; 86225; 86235